=== PATIENT | female | born 1945 | race Caucasian/White ===

== ENCOUNTER → 2019-07-30 | Outpatient (CLI) | payer MEDICARE, SELFPAY | PROVIDERS: PCP Family Medicine; Visit Provider Surgery Plastic and Reconstructive Surgery | DX: Z12.31 Encounter for screening mammogram for malignant neoplasm of breast (principal); C50.412 Malignant neoplasm of upper-outer quadrant of left female breast; Z17.0 Estrogen receptor positive status [ER+] | CPT/HCPCS: 77065; 77067; 77063 ==

== ENCOUNTER 2019-11-10 16:15 | Outpatient (RCR) | payer MEDICARE, SELFPAY ==
--- NOTE | 2019-08-27 09:07 | PTOPEVAL ---
PHYSICAL THERAPY EVALUATION AND PLAN OF TREATMENT 09-06-19 The PT evaluation for Mrs. Rashid Hoskins was completed today, for the diagnosis' of lymphedema of L breast and trunk and weakness/debility due to Gullian [place]. The plan of treatment is for 2x/week for 5 weeks. The orders for lymphedema are from Dr Funez, who is not practicing in the area any longer. Lynne requested her PT information be sent to Dr. Alvarado to continue her care. The orders for the diagnosis of Gullian [place] are from Valarie Porter NP. Thank you for referring Mrs. Rashid Hoskins to [facility]. Please review, sign, date and return this plan of care JAVI. I agree with and certify that the following plan of care is medically necessary. Referring Physician Date Referring Physicians: Valarie Porter NP and Dr. 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 Cardiovascular History Hx Cardiac Disorders No Significant History Respiratory History Hx Respiratory Disorders No Significant History Gastrointestinal History Hx Gastrointestinal Disorders No Significant History Genitourinary History Hx Other Genitourinary Disorders Yes: difficulty with bowel/ bladder during gullian barre- now OK Musculoskeletal History Hx Orthopedic Surgery Yes: 5 R lower leg surgeries due to polio,age 5 Hx Osteoporosis Yes Hx Other Musculoskeletal Disorders Yes: joint pain--knees, shoulders,back pain?arthritis Hematological History Hx Hematological Disorders No Significant History Endocrine History Hx Endocrine Disorders No Significant History HEENT History Hx HEENT Disorders No Significant History Integumentary History Hx Skin Disorders No Significant History Pain History Has Past Pain Affected Your Daily Life Yes: joint pain and neurological pain Other History Hx Cancer Yes: L breast- radiation & chemo Hx Chemotherapy Yes Hx Radiation Therapy Yes Hx Other Medical Conditions Yes: lost 30# since recent illness Evaluation Information Problem Diagnosis 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
--- NOTE | 2019-09-04 11:44 | PCPTNOTE ---
pt signed consent and her info was faxed to [facility] for an intermittent compression pump, auth for insurance & if she is eligible for it.
--- NOTE | 2019-09-28 09:29 | PCPTNOTE ---
Patient called & cancelled scheduled appointment this date due to snowy weather.
--- NOTE | 2019-09-28 11:07 | PCPTNOTE ---
Patient called & cancelled scheduled appointment this date due to [ ]weather
--- NOTE | 2019-10-02 11:39 | PTOPEVAL ---
PHYSICAL THERAPY RE-EVALUATION AND UPDATED PLAN OF CARE 10-02-19 Lynne has received 9 Physical Therapy sessions, from August 27 to today, for the diagnosis' of weakness s/p Gullian [place] and L breast lymphedema. She has improved with her mobility--Thibodeaux balance score, increase home activity, LE strength, sit to stand with 1 UE use, TUG and stair ability; she continues to use the wheeled walker; With her lympedema: circumferential measurement of trunk is 3 cm less; less visual edema over lateral trunk; continues to have tenderness over inner breast and outer breast with tenderness. Recommend to continue PT 2x/week for 4 weeks. Thank you for referring Mrs. Rashid Hoskins to [facility]. Please review, sign, date and return this plan of care JAVI. I agree with and certify that the following plan of care is medically necessary. Referring Physician Date Attending Provider: Dr. Leyla Manzano for Gullian [place] Dr. Alvarado for lymphedema *PT Outpatient Re-Evaluation Document 10/02/19 10:25 EVERETT (Rec: 10/02/19 11:34 EVERETT [email or web address]) Subjective Information Lynne reports: starting to Query Text:As Reported By Patient do more at home--dusting and mopping, walking some with cane or without device in home ; difficulty with reaching up in kitchen; going to basement to do laundry when is home, for safety only; helping get R leg in/out tub--stepping over to take a shower; has not gotten into tub; is going out and shopping, pushing cart for about 1 hour Pain Assessment Timing of Pain Assessment Timing of Pain Assessment Assessment Pain Scale Pain Scale Used Numeric (1 - 10) Self Report Pain Assessment Left Breast(s) Reported Pain Level 5 Other Pain Description lateral breast--feels like someone pressing on skin/ discomfort Additional Pain Comments continue to do self massage over breast Bilateral Leg(s) Reported Pain Level 6 Radicular Pain Location all over joint pain-? due to arimidex,has called her & has new pain med Pain Frequency Acute Pain Score Pain Score 5,6: Self Report Lower Extremity Muscle Strength Testing General Lower Extremity Strength Gross Lower Extremity Strength -SLS- lift leg but unable to hold on R and L; -alternate toe tap- SBA for safety, difficulty with lifti
--- NOTE | 2019-11-10 17:11 | PTOPEVAL ---
PHYSICAL THERAPY DISCHARGE 11-10-2019 Mrs. Rashid Hoskins has received 16 Physical Therapy sessions, from August 27 to today. Lynne has improved with her mobility skills and strength. The lymphedma over her L breast and trunk has decreased. She is independent with her strengthening exercises and self massage and management of her lymphedema. She will be discharged from PT at this time. The goals were partially achieved. Thank you for referring Mrs. Rashid Hoskins to [facility]. Please review, sign, date and return this discharge JAVI. I agree with and certify that the following plan of care is medically necessary. Referring Physician Date Attending Provider: Dr. Leyla Manzano, for Guillian [place] Dr. Alvarado, for Lymphedema *PT Outpatient Discharge Document 11/10/19 16:15 [facility]ERETT (Rec: 11/10/19 17:11 EVERETT [email or web address]) Subjective Information Lynne reports: is much Query Text:As Reported By Patient/ better, back to doing all of Family her usual home things, except carries laundry basket up/down stairs and feels arms are not quite strong enough when she is reaching up to put things away in cabinets; is able to get in/out tub on her own; not any problems going up/down basement stairs; is using the cane when walking out in the community, no device in her home and uses the wheeled walker when there is wetness or snow outside; is doing her home exercises without any problems; is having numbness in her finger tips and toes, and agrees to discharge from therapy. Pain Assessment Timing of Pain Assessment Timing of Pain Assessment Assessment Pain Scale Pain Scale Used Numeric (1 - 10) Self Report Pain Assessment Left Breast(s) Reported Pain Level 0 Bilateral Leg(s) Reported Pain Level 0 Additional Pain Comments has some L hip arthritis like pain- pointed to lateral- posterior hip Pain Score Pain Score 0,0: Self Report Lower Extremity Muscle Strength Testing General Lower Extremity Strength Gross Lower Extremity Strength SLS R and L 2 seconds, unstable; supine: L LE: 2# ankle wt: SLR x 10 reps; R LE no ankle wt, SLR x 10 reps;
== END 2019-11-11 08:56 | disposition home or self-care (01) ==
LOC: ANHPT 16:15
PROVIDERS: PCP Family Medicine; Visit Provider Surgery Plastic and Reconstructive Surgery
DX: I89.0 Lymphedema, not elsewhere classified (principal); G61.0 Guillain-Barre syndrome
CPT/HCPCS: 36415; 80053; 85025; 97110; 97140; 97162

== ENCOUNTER 2019-11-24 10:57 | Outpatient (CLI) | payer MEDICARE, SELFPAY ==
[2019-11-24 11:16] LABS: Basophils Absolute Auto 0.1 K/mm3 (0.0-0.1); Basophils Percent Auto 0.8 % (0.2-1.2); Eosinophils Absolute Auto 0.2 K/mm3 (0-0.3); Eosinophils Percent Auto 2.6 % (0-4.4); Hematocrit 41.1 % (37.0-47.0); Hemoglobin 13.1 g/dL (12.0-15.0); Immature Granulocyte Absolute 0.01 K/mm3 (0.00-0.031); Immature Granulocyte Percent A 0.2 % (0-0.5); Lymphocytes Absolute Auto 1.22 K/mm3 (0.9-3.2); Lymphocytes Percent Auto 20.1 % (18.3-44.2); Mean Corpuscular HGB Conc 31.9 g/dl (32-36); Mean Corpuscular Hemoglobin 29.1 pg (26-34); Mean Corpuscular Volume 91.3 fl (80-100); Mean Platelet Volume 10.6 fl (7.4-10.4); Monocytes Absolute Auto 0.7 K/mm3 (0.1-0.6); Monocytes Percent Auto 10.9 % (2.6-8.5); Neutrophils Percent Auto 65.4 % (45.5-73.1); Platelet Count Result 208 k/mm3 (150-375); Red Cell Distribution Width 14.7 % (11.5-14.5); White Blood Count 6.1 K/mm3 (4.5-10.0)
[2019-11-24 12:22] LABS: Alanine Aminotransferase 19 U/L (4-35); Albumin Level 4.3 g/dL (3.5-5.1); Alkaline Phosphatase 130 U/L (38-126); Aspartate Amino Transferase 27 U/L (14-36); Bilirubin,Total 0.7 mg/dL (0.2-1.3); Blood Urea Nitrogen 13 mg/dL (7-17); Calcium 9.7 mg/dL (8.4-10.2); Carbon Dioxide 26 mmol/L (22-30); Chloride 102 mmol/L (98-107); Estimated Glomerular Filt Rate > 60; Glucose 88 mg/dL (65-105); Potassium 3.8 mmol/L (3.4-5.0); Sodium 142 mmol/L (137-145)
[2019-11-27 12:48] LABS: CA 27.29 9 U/mL (<38)
== END 2019-11-24 10:58 | disposition home or self-care (01) ==
PROVIDERS: PCP Family Medicine; Visit Provider Internal Medicine Hematology & Oncology
DX: C50.412 Malignant neoplasm of upper-outer quadrant of left female breast (principal); Z17.0 Estrogen receptor positive status [ER+]
CPT/HCPCS: 36415; 80053; 85025; 86300

== ENCOUNTER 2020-01-21 12:09 | Outpatient (CLI) | payer MEDICARE, SELFPAY ==
--- NOTE | ~2020-01-21 | MM_ITS ---
EXAMINATION: MM diagnostic nicole LT w kate HISTORY: Status post left partial mastectomy for breast cancer TECHNIQUE: ML, MLO and cc 3-D tomosynthesis images of the left breast were performed and synthetic 2- D images were generated. Exaggerated lateral craniocaudal view of left breast. CAD analysis was submi tted and interpreted. COMPARISON: 07/30/2019 bilateral digital mammogram BREAST PARENCHYMAL COMPOSITION: There are scattered areas of fibroglandular density. FINDINGS: Status post left partial mastectomy; surgical clips and asymmetric density in the posterior aspect of the upper outer quadrant of the left breast are again noted, appearing stable since 2018. Stable skin thickening. No interval suspicious mass, architectural distortion or malignant calcification or new skin thickeni ng or retraction is evident.. IMPRESSION: 1. Status post left partial mastectomy for breast cancer 2. No mammographic evidence of malignancy or significant new or developing density since 07/30/2019 3. Follow-up imaging as clinically appropriate for this patient with history of left breast cancer. BI-RADS Category 2: Benign finding(s). Reviewed, dictated and finalized at location A. IMPRESSION: 1. Status post left partial mastectomy for breast cancer 2. No mammographic evidence of malignancy or significant new or developing dens ity since 07/30/2019 3. Follow-up imaging as clinically appropriate for this patient with history of left breast cancer. BI-RADS Category 2: Benign finding(s).
--- NOTE | ~2020-01-21 | DEXA_ITS ---
Bone Density Report Name: Lynne Skinner Age: 74 Sex: Female Ethnicity: White Date of : 1945 Indication: postmenopausal; height loss; cancer; Referring Provider: Charly Alvarado Study: Bone densitometry was performed. Exam Date: January 21, 2020 Accession number: [id number] Bone Density: Region BMD T-score Z-score Classification AP Spine (L1-L4) 0.900 -1.3 1.0 Osteopenia Femoral Neck (Left) 0.562 -2.6 -0.5 Osteoporosis Total Hip (Left) 0.644 -2.4 -0.7 Osteopenia Total Hip Bilateral Avg 0.626 -2.6 -0.8 Osteoporosis Femoral Neck (Right) 0.573 -2.5 -0.4 Osteoporosis Total Hip (Right) 0.606 -2.8 -1.0 Osteoporosis World Health Organization criteria for BMD impression classify patients as: Normal (T-score at or above -1.0), Osteopenia (T-score between -1.0 and -2.5), or Osteoporosis (T-score at or below -2.5). 10-year Fracture Risk: FRAX not reported because: Some T-score for Spine Total or Hip Total or Femoral Neck at or below -2.5 Clinical Information Provided by Patient: Has the following medical conditions: Cancer Patient maximum height was 60 Menopause Age: 53 Drinks caffeinated beverages Onset of menses at age 12 Number of children 2 Impression: The patient has osteoporosis, based on the Right Total Hip T-score. Discussion: INCREASED RISK OF FRACTURE. BONE DENSITY IS UNDESIRABLY LOW AT ONE OR MORE SKELETAL SITES, CONSISTENT WITH POSTMENOPAUSAL OSTEOPOROSIS. This patient's lowest T-score meets the World Health Organization's (WHO) criteria for osteoporosis at one or more sites (T-score -2.5 or below). In untreated patients, the risk of osteoporotic fracture increases approximately two-fold for each 1.0 SD decrease in T-score. Low bone density is not the only risk factor for fracture; also consider factors such as patient's age, frailty or poor health, risk of falling, risk of injury, previous osteoporotic fracture, family history of osteoporosis, cigarette smoking, low body weight, etc. Not everyone with low bone mineral density has osteoporosis; osteomalacia and other metabolic bone disorders should also be considered. Patients who have osteoporosis should be evaluated for specific diseases and conditions (secondary causes) that may cause or contribute to bone loss. The [place] Association [employer] Clinical Endocrinologists (AACE) and National Osteoporosis Foundation (NOF) recommend pharmacologic intervention for all postmenopausal women whose T-score is in this range. The patient should follow a healthful lifestyle (good nutrition with adequate calcium and vitamin D, and appropriate weight-bearing exercise). Follow-Up: Consider a repeat BMD and Vertebral Fracture Assessment (VFA) exam in 2 years or sooner if medically necessary, to reassess this patient's status. Reported by: EMILY on 01/21/2020 12:52:00 PM.
== END 2020-01-21 12:10 | disposition home or self-care (01) ==
PROVIDERS: PCP Family Medicine; Visit Provider Internal Medicine Hematology & Oncology
DX: C50.412 Malignant neoplasm of upper-outer quadrant of left female breast (principal); Z17.0 Estrogen receptor positive status [ER+]; M81.0 Age-related osteoporosis without current pathological fracture; M85.88 Other specified disorders of bone density and structure, other site; M85.852 Other specified disorders of bone density and structure, left thigh
CPT/HCPCS: 77061; 77065; 77080; G0279

== ENCOUNTER 2020-02-29 13:54 | Outpatient (CLI) | payer MEDICARE, SELFPAY ==
--- NOTE | ~2020-02-29 | XR_ITS ---
XR knee RT min 4V DATE: 02/29/2020 14:33 INDICATION: Bilateral leg pain TECHNIQUE: Weightbearing AP and PA views. [place] and lateral views. COMPARISON: None FINDINGS: There is mild periarticular spurring at all 3 compartments. There is prominent loss of join t space at the lateral compartment. Osteopenia. There is mild suprapatellar knee joint effusion. No fracture, dislocation, periosteal reaction or bone destruction, radiopaque intra-articular loose b valeria or chondrocalcinosis is evident. 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 Reviewed, dictated and finalized at location A. IMPRESSION: Tricompartment osteoarthritis, with greatest involvement at the lat eral compartment Osteopenia.
--- NOTE | ~2020-02-29 | XR_ITS ---
XR knee LT min 4V DATE: 02/29/2020 14:33 INDICATION: Bilateral leg pain. TECHNIQUE: 4 views including weightbearing AP and PA views COMPARISON: None FINDINGS: No fracture or dislocation or joint effusion. No periosteal reaction or bone destruction. Osteopenia. Joint spaces are relatively well preserved. No radiopaque intra-articular loose body or c hondrocalcinosis. IMPRESSION: Osteopenia Reviewed, dictated and finalized at location A. IMPRESSION: Osteopenia
--- NOTE | ~2020-02-29 | XR_ITS ---
EXAMINATION: XR hip BI 2V w AP pelvis DATE: 02/29/2020 14:33 INDICATION: Guillain-[place] syndrome. TECHNIQUE: An anteroposterior view of the pelvis and 2 views of each hip were obtained. COMPARISON: None. FINDINGS: Bone alignment is normal. No fracture. There is mild bilateral hip osteoarthritis. There is at least moderate lumbar spondylosis. IMPRESSION: 1. Mild osteoarthritis of the hips. Reviewed, dictated and finalized at location E.
== END 2020-02-29 13:55 | disposition home or self-care (01) ==
PROVIDERS: PCP Family Medicine; Visit Provider Family Medicine
DX: G61.0 Guillain-Barre syndrome (principal); Z86.12 Personal history of poliomyelitis; M81.0 Age-related osteoporosis without current pathological fracture; M16.0 Bilateral primary osteoarthritis of hip; M17.11 Unilateral primary osteoarthritis, right knee; M85.861 Other specified disorders of bone density and structure, right lower leg; M85.862 Other specified disorders of bone density and structure, left lower leg
CPT/HCPCS: 73521; 73564

== ENCOUNTER 2020-06-14 13:15 | Outpatient (RCR) | payer MEDICARE, SELFPAY ==
--- NOTE | 2020-03-17 10:06 | PTOPEVAL ---
PHYSICAL THERAPY EVALUATION AND PLAN OF CARE UPDATE Thank you for referring Lynne Fields to [facility]. I recommend Lynne participate in physical therapy 2x/week for 4-8weeks. Please review, sign, date and return this plan of care JAVI. I agree with and certify that the following plan of care is medically necessary. 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 Musculoskeletal History Hx Arthritis Yes: GENERALIZED Hx Orthopedic Surgery Yes: 5 R lower leg surgeries due to polio,age 5 Hx Osteoporosis Yes Hx Other Musculoskeletal Disorders Yes: PHYSICAL THERAPY FOR VI DEE - USES WALKER & CANE HEENT History Hx Dental Problems Yes: LOWER DENTURES Hx Other HEENT Disorders Yes: READING GLASSES Reproductive History Hx Mastectomy Yes: APRIL 2018 LT PARTIAL - NO BP/STICKS LT ARM Psychosocial History Hx Recent Lifestyle Changes Yes: DX ARNAV DEE MARCH 14 2019 Pain History Has Past Pain Affected Your Daily Life Yes: joint pain and neurological pain Other History Hx Cancer Yes: L breast- radiation & chemo Hx Chemotherapy Yes Hx Radiation Therapy Yes Hx Other Surgeries Yes: polio age 5 Evaluation Diagnosis left hip pain, right knee pain Cause indious Subjective Lynne is here today with c/o left hip pain and right knee. She was particpiating in physical therapy and discharged in October 2019 and reports she was doing well, but she is now having pain in left hip and right knee. She continues to use a cane in the community, but no AD in the house. She continues to do her HEP from October until the right knee started hurting. 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 Lacie feels not quite as steady on her feet as she would like to be. Diagnostic Tests X-Rays For This Problem Yes: OA Right Knee Reported Pain Level 2 Pain Description Aching Pain Frequency Chronic,Intermittent Lowest Pain Intensity 0 Greatest Pain Intensity 7 Pain Aggravating Factors Walking,Weight Bearing/ Standing Left Hip Reported Pain Level 3 Pain Description Aching Pain Frequency Chronic,Intermittent Lowest Pain Intensity 0 Greatest Pain Intensity 7 Pain Aggravating Factors Stair Climbing,Walking,Weight Be
--- NOTE | 2020-04-18 11:31 | PCPTNOTE ---
Patient did not show up for scheduled appointment this date.
--- NOTE | 2020-04-25 16:29 | PTOPEVAL ---
PHYSICAL THERAPY PROGRESS REPORT AND PLAN OF CARE Thank you for referring Lynne MikeAriaanAidee to [facility]. I recommend Lynne continue physical therapy 2x/week for 4 weeks. Please review, sign, date and return this plan of care JAVI. I agree with and certify that the following plan of care is medically necessary. Referring Physician Date Attending Provider: Leyla Nogueira MD Progress Diagnosis left hip pain, right knee pain Onset chronic Cause indious Subjective Information Lynne reports that she does Query Text:As Reported By Patient/ have days where she has quite Family a bit of pain in right knee and left hip. She does note that with physical therapy she feels as thought she is starting to get stronger. She started to do her exercises in the pool and she feels really good doing them in that water. Pain Assessment Timing of Pain Assessment Timing of Pain Assessment Pre-Treatment Pain Scale Pain Scale Used Numeric (1 - 10) Self Report Pain Assessment Right Knee(s) Reported Pain Level 2 Pain Description Aching,Pressure,Throbbing Pain Frequency Chronic,Intermittent Left Hip(s) Reported Pain Level 6 Pain Description Aching,Pressure,Throbbing Pain Frequency Chronic,Intermittent Pain Score Pain Score 2,6: Self Report Lower Extremity Range of Motion General Lower Extremity Range of Motion Reason Not Measured WNL/Left,WNL/Right Hip Strength Left Hip Flexion Strength 4+ Good + Hip Extension Strength 3- Fair - Hip Abduction Strength 3- Fair - Right Hip Flexion Strength 4 Good Hip Extension Strength 3- Fair - Hip Abduction Strength 3- Fair - Knee Strength Left Knee Flexion Strength 4 Good Knee Extension Strength 4- Good - Right Knee Flexion Strength 4- Good - Knee Extension Strength 3 Fair Balance Assessment Time Up Go (TUG) Timed Up and Go Test (TUG) (Seconds) 12 Assistive Devices None 5 Time Sit to Stand Time in Seconds 15.25 5 Time Sit to Stand Comments with use of hands on legs Query Text:Normative Data: If Greater 1month ago = 16.78seconds Than 15 Seconds, 74% Increase Risk for Recurrent Falls Gait Assessment Total Distance (feet) 755 6 Minute Walk Gait Speed Score (feet/ 2.09 second) PT Clinical Summary Lynne has participated in 1
--- NOTE | 2020-05-25 13:26 | PTOPEVAL ---
PHYSICAL THERAPY PLAN OF CARE UPDATE Thank you for referring Lynne Hoskins to [facility].? The patient is scheduled to be seen for therapy? 1C/week for 4 weeks. Please review, sign, date and return this plan of care JAVI. I agree with and certify that the following plan of care is medically necessary. Referring Physician Date Attending Provider: Leyla Nogueira, MD Progress Diagnosis left hip pain, right knee pain Onset chronic Cause indious Subjective Information Lynne continues to feel as Query Text:As Reported By Patient/ though she is getting stronger Family . She appreciates the accountability of therapy. She requested updated HEP. Self Report Pain Assessment Spine, Lumbar Reported Pain Level 4 Pain Description Aching Hip Strength Left Hip Flexion Strength 4+ Good + Hip Extension Strength 3- Fair - Hip Abduction Strength 3- Fair - Right Hip Flexion Strength 4 Good Hip Extension Strength 3- Fair - Hip Abduction Strength 3- Fair - Knee Strength Left Knee Flexion Strength 4 Good Knee Extension Strength 4- Good - Right Knee Flexion Strength 4- Good - Knee Extension Strength 3+ Fair + ESTES Balance Evaluation Total Score 44/56 Time Up Go (TUG) Timed Up and Go Test (TUG) (Seconds) 11 Assistive Devices None Comments 1month ago = 12seconds 5 Time Sit to Stand 14.32seoncds 5 Time Sit to Stand Comments with use of hands on legs 1month ago =15.25seconds 2month ago = 16.78seconds Gait Assessment 6 Minute Walk Total Distance (feet) 730 6 Minute Walk Gait Speed Score (feet/ 2.02 second) 6 Minute Gait Comments 1month ago = 755ft PT Clinical Summary Lynne has participated in 2 months of physical therapy 1 year after diagnosis of Guillian-[place]. Lynne continues to demonstrate mild progress in balance and functional strength. We will continues PT 1x/week for 4 weeks with plan for discharge. PT Services Indicated Yes Rehabilitation Potential Good Patient/Caregiver's Personal Goals for feel stronger and steadier Rehabilitation Potential Barriers to Goal Achievements None Support Requirements For Optimal None [place] Patient/Caregiver Informed of Benefits/ Yes Risks of Rehabi
--- NOTE | 2020-06-16 09:20 | PCPTNOTE ---
This treatment is being continued on visit number [id number]. Please see documentation on both accounts to view progress. Completed interventions, outcomes, and problems have been marked as Inactive to facilitate the copying of the Care plan routine for recurring accounts.
== END 2020-06-15 23:59 | disposition home or self-care (01) ==
LOC: ANHPT 13:15
PROVIDERS: PCP Family Medicine; Visit Provider Family Medicine
DX: G61.0 Guillain-Barre syndrome (principal); M25.561 Pain in right knee; M25.562 Pain in left knee; M25.551 Pain in right hip; M25.552 Pain in left hip; R26.81 Unsteadiness on feet; Z86.12 Personal history of poliomyelitis
CPT/HCPCS: 97110; 97112; 97140; 97162

== ENCOUNTER 2020-06-21 11:13 | Outpatient (RCR) | payer MEDICARE, SELFPAY ==
--- NOTE | 2020-06-16 09:20 | PCPTNOTE ---
The treatment documented on this account is a continuation of the treatment documented on visit number [id number]. Please see documentation on both accounts to view progress. The Plan of Care has been transitioned and updated within the new V#. I have addressed and agree with the discipline specific Problems, Interventions, and Goals for the current certification period. Completed interventions, outcomes, and problems have been marked as Inactive to facilitate the copying of the Care plan routine for recurring accounts.
--- NOTE | 2020-06-21 15:13 | PTOPEVAL ---
PHYSICAL THERAPY DISCHARGE NOTE Thank you for referring Lynne Hoskins to [facility].? Please review, sign, date and return this plan of care JAVI. I agree with and certify that the following plan of care is medically necessary. Referring Physician Date Attending Provider: Leyla Nogueira, MD Discharge agnosis left hip pain, right knee pain Onset chronic Cause indious Subjective Information Lynne is working hard at Query Text:As Reported By Patient/ home and feels as though her Family HEP is helping her to feel stronger. Her arthritis pain is much more under control. Pain Assessment Timing of Pain Assessment Timing of Pain Assessment Pre-Treatment Self Report Self Report Pain Level 0 Pain Score Pain Score 0: Self Report Additional Pain Score Comments pain has reduced since last treatment able to sleep better Balance Assessment Estes Balance Assessment Sitting to Standing Independent w/out Hands Unsupported Stance Ability Safely- 2 minutes Sitting Unsupported, Feet on Floor Safely- 2 minutes Standing to Sitting Safely, Minimal Hand Use Transfer Ability Safely, Minimal Hand Use Unsupported Stance- Eyes Closed Safely, 10 seconds Unsupported Stance- Feet Together Independent, 1 minute Reaching Forward while Standing Safely, 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 Object From Floor Independent/Safe Look Behind Shoulder - Standing Shifts Weight Well Turning 360 Degrees Turns slowly, but safely Unsupported Stance, Alternating Feet on (I)- 8 Steps in > 20 secs Stair Unsupported Tandem Stance Small Step- 30 seconds Unilateral Leg Stance Lifts Leg/Holds > 3 secs ESTES Balance Evaluation Total Score (/56 48 points) Time Up Go (TUG) Timed Up and Go Test (TUG) (Seconds) 11 Assistive Devices None Comments 1month ago = 11seconds 2month ago = 12seconds 5 Time Sit to Stand Time in Seconds 13.68 5 Time Sit to Stand Comments with use of hands on legs Query Text:Normative Data: If Greater 1month ago = 14.32seconds Than 15 Seconds, 74% Increase Risk for 2month ago =15.25seconds Recurrent Falls 3month ago = 16.78seconds Gait Assessment 6 Minute Walk Total Distance (feet) 785 6 Minute Walk Gait Speed Score (feet/ 2.18 second) 6 Minute Gait Comments with cane 1month ago = 730ft 2 months ago = 755ft PT Clinical Summary Lynne has participated in 3 months of physical therapy 1
== END 2020-06-22 12:47 | disposition home or self-care (01) ==
LOC: ANHPT 11:13
PROVIDERS: Visit Provider Family Medicine
DX: G61.0 Guillain-Barre syndrome (principal); M25.561 Pain in right knee; M25.562 Pain in left knee; M25.551 Pain in right hip; M25.552 Pain in left hip; R26.81 Unsteadiness on feet; Z86.12 Personal history of poliomyelitis
CPT/HCPCS: 97110

== ENCOUNTER 2020-07-27 10:00 | Outpatient (RCR) | payer MEDICARE, SELFPAY ==
--- NOTE | 2020-06-22 11:46 | PTOPEVAL ---
PHYSICAL THERAPY EVALUATION AND PLAN OF CARE 06-22-2020 The PT evaluation was completed for the diagnosis of L breast and UE lymphedema. Her treatment is scheduled for 2-3x/week for 5 weeks. Thank you for referring Lynne Hoskins to [facility].? Please review, sign, date and return this plan of care JAVI. I agree with and certify that the following plan of care is medically necessary. Referring Physician Date Attending Provider: KATARZYNA Johnson *PT Outpatient Evaluation Start: 06/22/20 09:55 Document 06/22/20 10:00 EVERETT (Rec: 06/22/20 11:34 EVERETT [id number]) Assessment Status Assessment Status Evaluation Outpatient Past Medical History Past Medical History Source of Past Medical History Patient Neurological History Hx Other Neurological Disorders Yes: Gullian [place] MARCH 14, 2019 - syndrome;polio as child Cardiovascular History Hx Cardiac Disorders No Significant History Respiratory History Hx Respiratory Disorders No Significant History Gastrointestinal History Hx Gastrointestinal Disorders No Significant History Genitourinary History Hx Other Genitourinary Disorders Yes: difficulty with bowel/ bladder during gullian barre- now OK Musculoskeletal History Hx Arthritis Yes: GENERALIZED- new script of meloxicam helping Hx Back Pain Yes Hx Orthopedic Surgery Yes: 5 R lower leg surgeries due to polio,age 5 Hx Osteoporosis Yes Hx Other Musculoskeletal Disorders Yes Hematological History Hx Hematological Disorders No Significant History Endocrine History Hx Endocrine Disorders No Significant History HEENT History Hx Dental Problems Yes: LOWER DENTURES Hx Other HEENT Disorders Yes: READING GLASSES Integumentary History Hx Skin Disorders No Significant History Reproductive History Hx Mastectomy Yes: APRIL 2018 LT PARTIAL - NO BP/STICKS LT ARM Pain History Has Past Pain Affected Your Daily Life Yes: joint pain and neurological pain Anesthesia History Hx Anesthesia Reactions No Significant History Other History Hx Cancer Yes: L breast- radiation & chemo Hx Chemotherapy Yes Hx Radiation Therapy Yes Hx Other Surgeries Yes: polio age 5 Evaluation Information Problem Diagnosis L breast lymphedema Onset March 2020 Prior Level of Function Activity Level (Last 3 Months) Occupation retired Hand Dominance Right Activity of Daily Living Ability Independent Indoor/Home Mobility
--- NOTE | 2020-07-27 10:55 | PTOPEVAL ---
PHYSICAL THERAPY DISCHARGE 07-27-2020 Thank you for referring Lynne Hoskins to [facility] Refer to the clinical summary below for her status at discharge. Please review, sign, date and return this plan of care JAVI. I agree with and certify that the following plan of care is medically necessary. Referring Physician Date Attending Provider: VARSHA Johnson *PT Outpatient Discharge Freq: Status: Active Protocol: Document 07/27/20 10:00 EVERETT (Rec: 07/27/20 10:55 EVERETT [id number]) Subjective Information Lynne reports: feeling Query Text:As Reported By Patient/ better, compression sleeve is Family comfortable and wearing without any problems; doing self massage at home; feels like ready for discharge from PT and to continue taking care of her lymphedema with massage and compression garment--she understands what to do Pain Assessment Timing of Pain Assessment Timing of Pain Assessment Assessment Self Report Self Report Pain Level 0 Pain Score Pain Score 0: Self Report Additional Pain Score Comments no pain in arm or trunk/chest; does have low back pain, due to twisting in bed last night - using heat and stretching; Lymphedema Evaluation Skin Inspection Skin Inspection Comment in supine: L upper trunk: no tenderness or fibrotic tissue with palpation over: port site, lower breast, axilla or medial-upper humerus; in supine: L shoulder active ROM is WNL and no pain reported UE Circumferential Measurement Left UE Lymphedema Side Left Mid-Proximal Third Finger (cm) 5.5 Palm (cm) 16.8 Wrist Crease (cm) 14.6 4 cm From Wrist (cm) 15 8 cm From Wrist (cm) 17 12 cm From Wrist (cm) 20 16 cm From Wrist (cm) 22.4 20 cm From Wrist (cm) 23.4 24 cm From Wrist (cm) 23.2 28 cm From Wrist (cm) 25.8 32 cm From Wrist (cm) 28 36 cm From Wrist (cm) 29 40 cm From Wrist (cm) 28 44 cm From Wrist (cm) 27 Total Upper Extremity Circumferential Left UE: 295.7 cm Measurement (cm) Additional Upper Extremity Measurements compared to initial evaluati
== END 2020-09-05 10:52 | disposition home or self-care (01) ==
LOC: ANHPT 10:00
PROVIDERS: Visit Provider Nurse Practitioner Adult Health
DX: I89.0 Lymphedema, not elsewhere classified (principal); C50.412 Malignant neoplasm of upper-outer quadrant of left female breast; Z17.0 Estrogen receptor positive status [ER+]
CPT/HCPCS: 29581; 97140; 97161

== ENCOUNTER 2020-08-05 12:59 | Outpatient (CLI) | payer MEDICARE, SELFPAY ==
--- NOTE | ~2020-08-05 | MMUS_ITS ---
EXAMINATION: MM diagnostic incole BI w kate, US breast LT complete HISTORY: Status post left mastectomy for breast cancer. Six-month follow-up of left breast TECHNIQUE: ML, MLO and cc 3-D tomosynthesis images of the breasts were performed and synthetic 2-D im ages were generated. Rotated lateral left cc view of left breast and additional spot images of left b reast CAD analysis was submitted and interpreted. High resolution left complete breast ultrasound exa mination was performed. COMPARISON: 01/31/2020 diagnostic left digital mammogram 07/30/2019 right screening and left diagnostic digital mammogram BREAST PARENCHYMAL COMPOSITION: There are scattered areas of fibroglandular density. FINDINGS: MAMMOGRAPHIC FINDINGS: Surgical clips and scarring are again identified in the posterior upper left breast posteriorly, as w ell as some asymmetric skin thickening of the left breast. Occasional benign calcifications are noted bilaterally. There is asymmetry in the posterior central left breast best demonstrated on screening CC view; left breast ultrasound was performed ULTRASOUND: No solid mass or suspicious shadowing is evident in the left breast. IMPRESSION: 1. Probable benign left breast fibroglandular asymmetry 2. 6 month diagnostic left mammogram is recommended, with ultrasound if required BI-RADS category 3, probably benign findings. Reviewed, dictated and finalized at location A. IMPRESSION: 1. Probable benign left breast fibroglandular asymmetry 2. 6 month diagnostic left mammogram is recommended, with ultrasound if require d BI-RADS category 3, probably benign findings.
== END 2020-08-05 13:00 | disposition home or self-care (01) ==
PROVIDERS: PCP Family Medicine; Visit Provider Nurse Practitioner Adult Health
DX: C50.412 Malignant neoplasm of upper-outer quadrant of left female breast (principal); Z17.0 Estrogen receptor positive status [ER+]
CPT/HCPCS: 76641; 77062; 77066; G0279

== ENCOUNTER 2020-08-08 09:59 | Outpatient (CLI) | payer MEDICARE, SELFPAY | END 2020-08-08 10:00 | disposition home or self-care (01) | LOC: ANHAUDIO 10:01 | PROVIDERS: PCP Family Medicine; Visit Provider Otolaryngology | DX: H90.3 Sensorineural hearing loss, bilateral (principal) | CPT/HCPCS: 92557; 92567 ==

== ENCOUNTER 2021-01-09 13:30 | Outpatient (RCR) | payer MEDICARE, SELFPAY ==
--- NOTE | 2020-11-14 15:02 | PTOPEVAL ---
Thank you for referring Lynne Hoskins to [facility].? The patient is scheduled to be seen for therapy? 2 x/week for 8 weeks. Please review, sign, date and return this plan of care JAVI. I agree with and certify that the following plan of care is medically necessary. Referring Physician Date Attending Provider: Mendoza Edwards MD *PT Outpatient Evaluation Start: 11/14/20 13:35 Therapy Assessment Status Assessment Status Assessment Status Evaluation Evaluation Information Problem Diagnosis right knee pain and back pain Additional Evaluation Detail GBS 2019- SNF for 70 days, DC home 06/01, then home health therapy. She then attended OP therapy early 2019. she has custom shoe orthotics with 1 cm left added to right insert. She started celebrex 1 wk ago for her OA. Subjective Information She uses a cane for community Query Text:As Reported By Patient/ mobility and amb at home Family without AD. c/o right knee pain and wearing an OTS compression knee brace. She also wearing ankle brace with lateral metal stays. She is performing a strengthening HEP 3-4x/wk. She is unable to milton exercises daily due to right leg and left hip pain. She has increased knee pain with walking. She wants to go the gym for walking, but has increased pain. She will have increased hip and knee pain with prolonged sitting. Pain Assessment Timing of Pain Assessment Timing of Pain Assessment Assessment Pain Scale Pain Scale Used Numeric (1 - 10) Self Report Pain Assessment Left Buttock(s) Reported Pain Level 0 Pain Frequency Intermittent Greatest Pain Intensity 8 Pain Aggravating Factors Prolonged Position,Walking, Weight Bearing/Standing Right Knee(s) Reported Pain Level 0 Pain Description Aching Pain Frequency Intermittent Greatest Pain Intensity 9 Pain Aggravating Factors Prolonged Position,Walking, Weight Bearing/Standing Pain Behaviors Anxious Pain Score Pain Score
--- NOTE | 2020-11-28 09:06 | PCPTNOTE ---
Patient called & cancelled scheduled appointment this date due to weather.
--- NOTE | 2020-12-01 11:09 | PCPTNOTE ---
Patient called & cancelled scheduled appointment this date due to weather.
--- NOTE | 2021-01-10 07:37 | PTOPEVAL ---
Thank you for referring Lynne Hoskins to [facility].? Lynne has attended 12 therapy visits related to her back pain and leg weakness. She has reached maximal potential with skilled therapy services at this time. D/C skilled therapy services at this time. Please review, sign, date and return this discharge summary JAVI. I agree with and certify that the following plan of care is medically necessary. Referring Physician Date Attending Provider: Mendoza Edwards MD Physical Therapy Discharge Note Evaluation Information Problem Diagnosis right knee pain and back pain Additional Evaluation Detail GBS 2019- SNF for 70 days, DC home 06/01, then home health therapy. She then attended OP therapy early 2019. she has custom shoe orthotics with 1 cm left added to right insert. Subjective Information She wants to be able to do Query Text:As Reported By Patient/ more. States is has been Family almost 2 yrs since she felt like she could complete everything she wanted. She has increased pain if she sits more than an hour. She reports she is feeling better. She feels like her legs are stronger. Pain Assessment Self Report Pain Assessment Left Buttock(s) Reported Pain Level 3 Pain Description Aching Pain Frequency Chronic,Continuous Lowest Pain Intensity 1 Greatest Pain Intensity 7 Pain Aggravating Factors Exercise/Activity,Weight Bearing/Standing Right Knee(s) Reported Pain Level 2 Pain Description Aching Pain Frequency Chronic Lowest Pain Intensity 2 Greatest Pain Intensity 8 Pain Aggravating Factors Prolonged Position,Walking, Weight Bearing/Standing Cervical and Lumbar Muscle Testing Lumbar Strength Upper Abdominal Strength 3+Fair+ Abdominal Obliques 3+Fair+ Upper Back Extension 3+Fair+ Lower Back Extension 3+Fair+ Lower Extremity Muscle Strength Testing Hip Strength Right Hip Flexion Strength 3+ Fair + Hip Extension Strength 3 Fair Hip Abduction Strength 2 Poor Hip Adduction Strength 2+ Poor + Left Hip Flexion Strength 4 Good Hip Extension Strength 3- Fair - Hip Abduction Strength 2 Poor Hip Adduction Strength 2+ Poor + Knee Strength Left Knee Flexion Strength 4 Good Knee Extension Strength
== END 2021-01-10 10:33 | disposition home or self-care (01) ==
LOC: ANHPT 13:30
PROVIDERS: PCP Family Medicine; Visit Provider Orthopaedic Surgery
DX: M54.5 Low back pain (principal); M25.561 Pain in right knee
CPT/HCPCS: 97110; 97112; 97163; 97530

== ENCOUNTER 2021-01-23 11:36 | Outpatient (CLI) | payer MEDICARE, SELFPAY ==
--- NOTE | ~2021-01-23 | MM_ITS ---
EXAMINATION: MM diagnostic nicole LT w kate HISTORY: Status post recent lumpectomy. Follow-up left breast asymmetry. TECHNIQUE: Additional 3-D tomosynthesis images of the left breast were performed and synthetic 2-D im ages were generated. CAD analysis was submitted and interpreted. COMPARISON: Comparison to multiple prior studies sequentially, with oldest reviewed study dated 12/2017. BREAST PARENCHYMAL COMPOSITION: Breast composed of scattered areas of fibroglandular density. FINDINGS: Stable architectural distortion in the upper outer quadrant of the left breast, consistent with previous lumpectomy. No new masses, calcifications or architectural distortion to suggest malign christopher. IMPRESSION: 1. Stable left mammogram without evidence for malignancy. 2. Routine yearly screening mammogram and regular clinical breast examination are recommended. BI-RADS Category 2: Benign finding(s). Reviewed, dictated and finalized at location A. IMPRESSION: 1. Stable left mammogram without evidence for malignancy. 2. Routine yearly screening mammogram and regular clinical breast examination a re recommended. BI-RADS Category 2: Benign finding(s).
== END 2021-01-23 11:37 | disposition home or self-care (01) ==
LOC: ANHIMG 11:37
PROVIDERS: PCP Family Medicine; Visit Provider Internal Medicine Hematology & Oncology
DX: R92.8 Other abnormal and inconclusive findings on diagnostic imaging of breast (principal)
CPT/HCPCS: 77061; 77065; G0279

== ENCOUNTER 2021-05-31 14:23 | Outpatient (CLI) | payer MEDICARE, SELFPAY ==
--- NOTE | ~2021-05-31 | XR_ITS ---
XR lumbar spine min 4V DATE: 05/31/2021 14:55 INDICATION: Back pain. History of polio. Breast cancer. TECHNIQUE: AP, lateral, bilateral oblique and coned lateral lumbosacral views COMPARISON: None FINDINGS: There is diffuse osteopenia. Mild dextroscoliosis of the thoracolumbar spine. There is severe degenerative disease and associated retrolisthesis at L1-2. There is degenerative change at the apophyseal joints of the lumbar and lumbosacral area with associa glenn grade 1 anterolisthesis at L4-5. No fracture or bone destruction is evident. The lumbar pedicles are intact. The sacroiliac joints are intact. IMPRESSION: Diffuse osteopenia Mild dextroscoliosis of the thoracolumbar spine Severe degenerative disc disease at L1-2 with associated retrolisthesis Prominent degenerative change at the apophyseal joints with associated grade 1 anterolisthesis at L4- 5 Reviewed, dictated and finalized at location A. IMPRESSION: Diffuse osteopenia Mild dextroscoliosis of the thoracolumbar spine Severe degenerative disc disease at L1-2 with associated retrolisthesis Prominent degenerative change at the apophyseal joints with associated grade 1 anterolisthesis at L4-5
== END 2021-05-31 14:24 | disposition home or self-care (01) ==
PROVIDERS: PCP Family Medicine; Visit Provider Family Medicine
DX: M54.9 Dorsalgia, unspecified (principal); G89.29 Other chronic pain; M51.36 Other intervertebral disc degeneration, lumbar region
CPT/HCPCS: 72110

== ENCOUNTER 2021-07-24 11:29 | Outpatient (CLI) | payer MEDICARE, SELFPAY ==
--- NOTE | ~2021-07-24 | MMUS_ITS ---
EXAMINATION: MM diagnostic nicole BI w kaet, US breast RT limited HISTORY: History of left breast cancer status post chemotherapy and radiation therapy. TECHNIQUE: Additional 3-D tomosynthesis images of the breasts were performed and synthetic 2-D images were generated. CAD analysis was submitted and interpreted. High resolution Limited right breast ult rasound was performed. COMPARISON: Comparison to multiple prior studies sequentially, with oldest reviewed study dated 07/14. BREAST PARENCHYMAL COMPOSITION: Breast composed of scattered areas of fibroglandular density. FINDINGS: MAMMOGRAPHIC FINDINGS: There is focal asymmetry in the lower central aspect of the right breast, middle which is less dense with spot compression and mediolateral views, likely superimposed fibroglandular tissue. There is no mammographic evidence for malignancy in the left breast. Stable architectural distortion in the upper aspect of the left breast, consistent with previous lumpectomy site. ULTRASOUND: Limited left breast ultrasound: Normal heterogeneous echotexture is present. There is heterogeneous e chotexture at 7:00, although no discrete mass is identified. IMPRESSION: 1. Probable benign asymmetric fibroglandular tissue in the lower central aspect of the right breast. No sonographic correlate. 2. Recommend 6 month follow-up diagnostic right mammogram. BI-RADS category 3, probably benign findings. Reviewed, dictated and finalized at location A. IMPRESSION: 1. Probable benign asymmetric fibroglandular tissue in the lower central aspect of the right breast. No sonographic correlate. 2. Recommend 6 month follow-up diagnostic right mammogram. BI-RADS category 3, probably benign findings.
== END 2021-07-24 11:30 | disposition home or self-care (01) ==
PROVIDERS: PCP Family Medicine; Visit Provider Internal Medicine Hematology & Oncology
DX: C50.412 Malignant neoplasm of upper-outer quadrant of left female breast (principal); Z17.0 Estrogen receptor positive status [ER+]; R92.8 Other abnormal and inconclusive findings on diagnostic imaging of breast
CPT/HCPCS: 76642; 77062; 77066; G0279

== ENCOUNTER 2022-01-30 13:43 | Outpatient (CLI) | payer MEDICARE, SELFPAY ==
--- NOTE | ~2022-01-30 | MMUS_ITS ---
EXAMINATION: US breast RT complete, MM diagnostic nicole RT w kate HISTORY: Six-month follow-up of probable benign asymmetric fibroglandular tissue in lower central asp ect of right breast on 07/24/2021 diagnostic mammogram TECHNIQUE: Full field and spot right breast 3-D tomosynthesis images were performed and synthetic 2-D images were generated. CAD analysis was submitted and interpreted. High resolution complete right br east ultrasound including all 4 quadrants and subareolar area was performed. COMPARISON: 07/24/2021 bilateral diagnostic mammogram and limited right breast ultrasound BREAST PARENCHYMAL COMPOSITION: There are scattered areas of fibroglandular density. FINDINGS: MAMMOGRAPHIC FINDINGS: Stable fiber granular asymmetry. No interval suspicious mass, architectural distortion or significant new or developing density. Occasional benign calcifications. ULTRASOUND: No suspicious mass or shadowing is detected. A small benign-appearing lymph node with thin cortex murali suring approximately 3.5 x 6.7 mm is noted at 9:00 8 cm from the nipple. IMPRESSION: 1. No mammographic evidence of malignancy 2. Routine mammographic screening is recommended BI-RADS Category 2: Benign finding(s). Reviewed, dictated and finalized at location A. IMPRESSION: 1. No mammographic evidence of malignancy 2. Routine mammographic screening is recommended BI-RADS Category 2: Benign finding(s).
== END 2022-01-30 13:44 | disposition home or self-care (01) ==
PROVIDERS: PCP Family Medicine; Visit Provider Internal Medicine Hematology & Oncology
DX: C50.412 Malignant neoplasm of upper-outer quadrant of left female breast (principal); Z17.0 Estrogen receptor positive status [ER+]
CPT/HCPCS: 76641; 77061; 77065; G0279

== ENCOUNTER 2022-03-14 12:30 | Outpatient (RCR) | payer MEDICARE, SELFPAY ==
--- NOTE | 2022-02-13 10:59 | PTOPEVAL ---
PHYSICAL THERAPY EVALUATION AND PLAN OF CARE 02-13-22 Thank you for referring Lynne Hoskins to [facility] for the diagnosis of lymphedema. She is scheduled to be seen for therapy? 2 x/week for 4 weeks. Please review, sign, date and return this plan of care JAVI. I agree with and certify that the following plan of care is medically necessary. Referring Physician Date Attending Provider: Charly Alvarado MD Past Medical History Source of Past Medical History Recalled from Previous Visit, Confirmed with Patient/Family Neurological History Hx Other Neurological Disorders Yes: Andrei Castrejon MARCH 14, 2019 - syndrome;polio as child Cardiovascular History Hx Cardiac Disorders No Significant History Respiratory History Hx Respiratory Disorders No Significant History Gastrointestinal History Hx Gastrointestinal Disorders No Significant History Genitourinary History Hx Genitourinary Disorders No Significant History Musculoskeletal History Hx Arthritis Yes: GENERALIZED arthritis Hx Back Pain Yes: chronic due to arthritis and knee issues Hx Orthopedic Surgery Yes: 5 R lower leg surgeries due to polio,age 5 Hx Osteoporosis Yes Hx Other Musculoskeletal Disorders Yes: R knee pain--is considering TKR soon Hematological History Hx Hematological Disorders No Significant History Endocrine History Hx Endocrine Disorders No Significant History HEENT History Hx Dental Problems Yes: LOWER DENTURES Hx Other HEENT Disorders Yes: READING GLASSES Integumentary History Hx Skin Disorders No Significant History Pain History Has Past Pain Affected Your Daily Life Yes: joint pain and neurological pain Anesthesia History Hx Anesthesia Reactions No Significant History Other History Hx Cancer Yes: L breast- radiation & chemo Hx Chemotherapy Yes Hx Radiation Therapy Yes Hx Other Surgeries Yes: polio age 5 Evaluation Information Problem Diagnosis lymphedema of L UE, trunk and breast Onset past year Prior Level of Function Activity Level (Last 3 Months) Hand Dominance Right Home Setting Environmental Barriers Stairs, Greater than 4 Living Situation With Spouse Mobility Assistive Devices (Used Last 3 Cane,Wheelchair, Scooter Months) Comments Additional Prior Level of Function assist with vacuuming Comments and does mowing; use cane for walking and distances use motorized
--- NOTE | 2022-03-14 13:10 | PTOPEVAL ---
PHYSICAL THERAPY DISCHARGE 03-14-22 Refer to the clinical summary below, for her status today, compared to the initial evaluation. The goals were partially met. Discharge PT services. Thank you for referring Lynne Hoskins to [facility].? Please review, sign, date and return this Discharge JAVI. I agree with and certify that the following plan of care is medically necessary. Referring Physician Date Attending Provider: Charly Alvarado MD Pain Assessment Pain Scale Pain Scale Used Numeric (1 - 10) Self Report Pain Assessment Left Arm(s) Reported Pain Level 5 Pain Frequency Chronic,Continuous Other Pain Description discomfort medial humerus and lateral trunk Skin Inspection Location Left Upper Extremity Palpation Findings Warm Skin Temperature Tissue Texture Firm Lymphedema Stage II Skin Inspection Comment L UE with normal skin color, minimal firmness of tissue over proximal anterior- medial forearm; no tenderness reported with palpation; pt to dept with her velcro compression garment intact; she brought in her new compression sleeve; applied and it has good fit; pt reports comfortable: Lymphediva, size small, short length, 20-30 mmHg; reinforced and discussed with pt: wear compression sleeve daily, can sleep with velcro garment if arm is more swollen ; replacing sleeve every ~ 6 months; monitor skin, continue MLD; pt reports has not heard if insurance has approved her home compression pump or not yet. UE Circumferential Measurement UE Lymphedema Side Left Mid-Proximal Third Finger (cm) 5.4 Palm (cm) 17.4 Wrist Crease (cm) 14.5 4 cm From Wrist (cm) 15.8 8 cm From Wrist (cm) 18 12 cm From Wrist (cm) 21.4 16 cm From Wrist (cm) 23 20 cm From Wrist (cm) 24.4 24 cm From Wrist (cm) 26 28 cm From Wrist (cm) 30.6 32 cm From Wrist (cm) 32 36 cm From Wrist (cm)
--- NOTE | 2022-03-14 13:18 | PCPTNOTE ---
Addendum entered by Dory Chester, PT 05/04/22 08:06: pt is also elevating her arm when she is at rest, using a pillow to prop it up. Original Note: 03-14-22: addendum to discharge summary: Mrs. Rashid Hoskins continues to have lymphedema over L arm and lateral trunk, with circumferential measurement of L arm, up to 40 cm from wrist, is 34.2 cm larger than her R UE. She has received 4 weeks of PT treatments including: UE exercises, manual lymph drainage and education for self care, self MLD and has obtained a compression garment/sleeve of 20-30 mmHg. Lynne would benefit from a home intermittent compression pump for daily use to assist her with managing her lateral trunk and L UE lymphedema.
== END 2022-03-15 16:25 | disposition home or self-care (01) ==
LOC: ANHPT 12:30
PROVIDERS: PCP Family Medicine; Referring Provider Internal Medicine Hematology & Oncology; Visit Provider Internal Medicine Hematology & Oncology
DX: I89.0 Lymphedema, not elsewhere classified (principal)
CPT/HCPCS: 97016; 97140; 97161

== ENCOUNTER 2022-07-26 14:22 | Outpatient (CLI) | payer MEDICARE, SELFPAY ==
--- NOTE | ~2022-07-26 | MM_ITS ---
EXAMINATION: MM screening nicole BI w kate HISTORY: Screening TECHNIQUE: Craniocaudal and mediolateral oblique 3-D tomosynthesis images were obtained and synthetic 2-D images were generated. CAD analysis was submitted and interpreted. COMPARISON: Comparison to multiple prior studies sequentially, with oldest reviewed study dated 07/14. BREAST PARENCHYMAL COMPOSITION: There are scattered areas of fibroglandular density. FINDINGS: There is a developing asymmetry in the lower central aspect of the right breast. The left b reast is stable without evidence for malignancy. IMPRESSION: 1. Developing asymmetry lower central aspect of the right breast. 2. Additional mammographic views and possible breast ultrasound are recommended. BI-RADS Category 0: Incomplete: Needs additional imaging evaluation. Reviewed, dictated and finalized at location A. IMPRESSION: 1. Developing asymmetry lower central aspect of the right breast. 2. Additional mammographic views and possible breast ultrasound are recommended . BI-RADS Category 0: Incomplete: Needs additional imaging evaluation.
== END 2022-07-26 14:23 | disposition home or self-care (01) ==
LOC: ANHIMG 14:24
PROVIDERS: PCP Family Medicine; Visit Provider Internal Medicine Hematology & Oncology
DX: Z12.31 Encounter for screening mammogram for malignant neoplasm of breast (principal); R92.8 Other abnormal and inconclusive findings on diagnostic imaging of breast
CPT/HCPCS: 77063; 77067

== ENCOUNTER 2022-07-26 14:50 | Outpatient (CLI) | payer MEDICARE, SELFPAY ==
[2022-07-26 15:06] LABS: Basophils Absolute Auto 0.1 K/mm3 (0.0-0.1); Basophils Percent Auto 0.8 % (0.2-1.2); Eosinophils Absolute Auto 0.3 K/mm3 (0-0.3); Eosinophils Percent Auto 4.1 % (0-4.4); Hematocrit 43.2 % (37.0-47.0); Hemoglobin 13.9 g/dL (12.0-15.0); Immature Granulocyte Absolute 0.03 K/mm3 (0.00-0.031); Immature Granulocyte Percent A 0.4 % (0-0.5); Lymphocytes Absolute Auto 1.77 K/mm3 (0.9-3.2); Lymphocytes Percent Auto 24.8 % (18.3-44.2); Mean Corpuscular HGB Conc 32.2 g/dl (32-36); Mean Corpuscular Hemoglobin 30.7 pg (26-34); Mean Corpuscular Volume 95.4 fl (80-100); Monocytes Absolute Auto 0.7 K/mm3 (0.1-0.6); Monocytes Percent Auto 9.8 % (2.6-8.5); Neutrophils Absolute Auto 4.3 K/mm3 (1.3-6.7); Neutrophils Percent Auto 60.1 % (45.5-73.1); Platelet Count Result 269 k/mm3 (150-375); Red Blood Count 4.53 M/mm3 (4.2-5.4); Red Cell Distribution Width 13.3 % (11.5-14.5); White Blood Count 7.2 K/mm3 (4.5-10.0)
[2022-07-26 16:04] LABS: Alanine Aminotransferase 19 U/L (6-35); Albumin Level 4.3 g/dL (3.5-5.1); Alkaline Phosphatase 96 U/L (38-126); Anion Gap 7 mmol/L (8-16); Aspartate Amino Transferase 21 U/L (14-36); Bilirubin,Total 0.8 mg/dL (0.2-1.3); Blood Urea Nitrogen 20 mg/dL (7-17); Calcium 9.1 mg/dL (8.4-10.2); Carbon Dioxide 26 mmol/L (22-30); Chloride 105 mmol/L (98-107); Estimated Glomerular Filt Rate > 60; Glucose 96 mg/dL (65-110); Sodium 138 mmol/L (137-145)
[2022-07-29 07:30] LABS: CA 15-3 7 U/mL (<32)
== END 2022-07-26 14:51 | disposition home or self-care (01) ==
LOC: ANHLAB 14:52
PROVIDERS: PCP Family Medicine; Visit Provider Internal Medicine Hematology & Oncology
DX: C50.412 Malignant neoplasm of upper-outer quadrant of left female breast (principal); Z17.0 Estrogen receptor positive status [ER+]
CPT/HCPCS: 36415; 77063; 77067; 80053; 85025; 86300

== ENCOUNTER 2022-08-16 13:32 | Outpatient (CLI) | payer MEDICARE, SELFPAY ==
--- NOTE | ~2022-08-16 | MMUS_ITS ---
EXAMINATION: MM diagnostic nicole RT w kate, US breast RT limited HISTORY: Follow-up right breast asymmetry TECHNIQUE: Additional 3-D tomosynthesis images of the right breast were performed and synthetic 2-D i mages were generated. CAD analysis was submitted and interpreted. High resolution Limited right breas t ultrasound was performed. COMPARISON: Comparison to multiple prior studies sequentially, with oldest reviewed study dated 07/15. BREAST PARENCHYMAL COMPOSITION: Breast composed of scattered areas of fibroglandular density FINDINGS: MAMMOGRAPHIC FINDINGS: There are no suspicious masses, calcifications or architectural distortion to suggest malignancy. Rig ht breast asymmetries are less dense with spot compression views, compatible with superimposed fibrog landular tissue. ULTRASOUND: Limited right breast ultrasound: Normal heterogeneous echotexture without focal solid or cystic mass. IMPRESSION: 1. No evidence for malignancy in the right breast. 2. Routine yearly screening mammogram and regular clinical breast examination are recommended. BI-RADS Category 1: Negative Reviewed, dictated and finalized at location A. IMPRESSION: 1. No evidence for malignancy in the right breast. 2. Routine yearly screening mammogram and regular clinical breast examination a re recommended. BI-RADS Category 1: Negative
== END 2022-08-16 13:33 | disposition home or self-care (01) ==
PROVIDERS: PCP Family Medicine; Visit Provider Internal Medicine Hematology & Oncology
DX: C50.412 Malignant neoplasm of upper-outer quadrant of left female breast (principal); Z17.0 Estrogen receptor positive status [ER+]
CPT/HCPCS: 76642; 77061; 77065; G0279

== ENCOUNTER 2022-09-20 12:55 | Outpatient (CLI) | payer MEDICARE, SELFPAY ==
--- NOTE | ~2022-09-20 | DEXA_ITS ---
Bone Density Report Name: JEFFERY ALONZO Age: 77 Sex: Female Ethnicity: White Date of : 1945 Indication: postmenopausal osteoporosis; monitoring treatment; height loss; cancer; Referring Provider: MALCOLM MATSON Study: Bone densitometry was performed. Exam Date: September 20, 2022 Accession number: [id number] Bone Density: Region BMD T-score Z-score Classification AP Spine(L3, L4) 1.126 0.2 2.9 Normal Femoral Neck (Left) 0.585 -2.4 -0.2 Osteopenia Total Hip (Left) 0.691 -2.1 -0.1 Osteopenia Femoral Neck (Right) 0.566 -2.5 -0.4 Osteoporosis Total Hip (Right) 0.621 -2.6 -0.7 Osteoporosis Total Hip Mean 0.656 -2.4 -0.4 Osteopenia World Health Organization criteria for BMD impression classify patients as: Normal (T-score at or above -1.0), Osteopenia (T-score between -1.0 and -2.5), or Osteoporosis (T-score at or below -2.5). 10-year Fracture Risk: FRAX not reported because: Some T-score for Spine Total or Hip Total or Femoral Neck at or below -2.5 Treated for osteoporosis Previous Exams: Region Exam Age BMD T-score BMD Change BMD Change Date g/cm2 vs Baseline vs Previous AP Spine (L3-L4) 09/20/2022 77 1.126 0.2 0.219 (24.1%)* 0.219 (24.1%)* 01/21/2020 74 0.907 -1.8 Total Hip(Left) 09/20/2022 77 0.691 -2.1 0.047 (7.3%)* 0.047 (7.3%)* 01/21/2020 74 0.644 -2.4 Total Hip(Right) 09/20/2022 77 0.621 -2.6 0.014 (2.4%) 0.014 (2.4%) 01/21/2020 74 0.606 -2.8 *Denotes significance at 95% confidence level, LSC for AP Spine = 0.022 g/cm2, LSC for Total Hip = 0.027 g/cm2 Clinical Information Provided by Patient: Is being treated for osteoporosis Has used the following medications: Prolia (i.e. denosumab) Has the following medical conditions: Cancer Patient maximum height was 60 Menopause Age: 53 No regular weight bearing exercise Drinks caffeinated beverages Onset of menses at age 11 Number of children 2 Impression: The patient has osteoporosis, based on the Right Total Hip T-score. No significant bone loss was observed. Discussion: PATIENT UNDER TREATMENT WITH NO SIGNIFICANT BMD LOSS SINCE LAST EXAM. In an untreated patient, BMD typically declines with age. A lack of decline or gain is usually a sign that treatment is efficacious and fracture risk is reduced. It is important to ask patients whether they are taking their medications and to encourage continued and appropriate compliance with their os
== END 2022-09-20 12:56 | disposition home or self-care (01) ==
LOC: ANHIMG 12:56
PROVIDERS: PCP Family Medicine; Visit Provider Physician Assistant
DX: Z78.0 Asymptomatic menopausal state (principal); M85.852 Other specified disorders of bone density and structure, left thigh; M85.851 Other specified disorders of bone density and structure, right thigh; M81.0 Age-related osteoporosis without current pathological fracture
CPT/HCPCS: 77080

== ENCOUNTER 2022-10-10 14:00 | Outpatient (CLI) | payer MEDICARE, SELFPAY ==
--- NOTE | 2022-10-10 15:22 | ECG_ITS ---
Measurements Intervals Fowler Rate: 72 P: 52 FL: 150 QRS: -9 QRSD: 77 T: 26 QT: 392 QTc: 429 Interpretive Statements SINUS RHYTHM BASELINE ARTIFACT PRESENT NO PREVIOUS ECG AVAILABLE FOR COMPARISON Electronically Signed On 10-10-2022 15:54:26 STAVE MACHINE TENDER by Makenzie Ford M.D.
[2022-10-10 15:57] LABS: Basophils Percent Auto 0.5 % (0.2-1.2); Eosinophils Absolute Auto 0.2 K/mm3 (0-0.3); Eosinophils Percent Auto 2.8 % (0-4.4); Hematocrit 43.7 % (37.0-47.0); Hemoglobin 13.8 g/dL (12.0-15.0); Immature Granulocyte Absolute 0.05 K/mm3 (0.00-0.031); Immature Granulocyte Percent A 0.7 % (0-0.5); Lymphocytes Absolute Auto 1.61 K/mm3 (0.9-3.2); Lymphocytes Percent Auto 21.6 % (18.3-44.2); Mean Corpuscular HGB Conc 31.6 g/dl (32-36); Mean Corpuscular Hemoglobin 30.2 pg (26-34); Mean Corpuscular Volume 95.6 fl (80-100); Mean Platelet Volume 9.7 fl (7.4-10.4); Monocytes Absolute Auto 0.9 K/mm3 (0.1-0.6); Monocytes Percent Auto 11.6 % (2.6-8.5); Neutrophils Absolute Auto 4.7 K/mm3 (1.3-6.7); Neutrophils Percent Auto 62.8 % (45.5-73.1); Platelet Count Result 329 k/mm3 (150-375); Red Blood Count 4.57 M/mm3 (4.2-5.4); White Blood Count 7.4 K/mm3 (4.5-10.0)
[2022-10-10 16:04] LABS: Albumin Level 4.2 g/dL (3.5-5.1); Anion Gap 2 mmol/L (8-16); Blood Urea Nitrogen 9 mg/dL (7-17); Calcium 8.5 mg/dL (8.4-10.2); Carbon Dioxide 31 mmol/L (22-30); Chloride 105 mmol/L (98-107); Estimated Glomerular Filt Rate > 60; Glucose 96 mg/dL (65-110); Potassium 4.5 mmol/L (3.4-5.0); Sodium 138 mmol/L (137-145)
[2022-10-10 16:08] LABS: INR 1.1; Prothrombin Time 13.3 Seconds (11.1-14.7)
[2022-10-10 16:09] LABS: Add Urine Microscopic? NO; Appearance Urine Clear (Clear); Bilirubin Urine Negative (Negative); Blood Urine Negative (Negative); Color Urine Light Yellow (Yellow); Glucose Urine UA Negative (Negative); Ketones Urine Negative (Negative); Leukocyte Esterase Ur Negative LEU/UL (Negative); Nitrate Urine Negative (Negative); Partial Thromboplastin Time 27.8 SECONDS (22.3-36.8); Protein Urine Negative (Negative); Specific Grav Ur <= 1.005 (1.001-1.035); Urobilinogen Urine 0.2 mg/dL (<2.0); pH Urine 6.5 (5.0-9.0)
[2022-10-10 16:13] LABS: Urine Cotinine NEGATIVE
[2022-10-10 16:24] LABS: Hemoglobin A1C 5.8 % (<5.7)
== END 2022-10-10 14:01 | disposition home or self-care (01) ==
PROVIDERS: PCP Family Medicine; Visit Provider Orthopaedic Surgery
DX: M17.11 Unilateral primary osteoarthritis, right knee (principal); Z01.818 Encounter for other preprocedural examination
CPT/HCPCS: 80048; 80307; 81003; 82040; 83036; 85025; 85610; 85730; 87081; 93005

== ENCOUNTER 2022-10-31 01:34 | Day surgery (SDC) | payer MEDICARE, SELFPAY ==
[2022-10-10 14:11] VITALS: BMI 30.8
--- NOTE | 2022-10-10 14:48 | PC.NURSE ---
Report to the Outpatient Waiting Room, entrance under the green pavilion located off [facility], at time ___0600____ on date _10/31/22 . Planned Procedure Time: __30 . Time changes happen often and if your time is changed the preop area will call you the afternoon before. - You and your visitor will be asked to self-screen and do not enter if you have any COVID symptoms. - Only one visitor is requested with a max of two and NO children visitors are allowed at this time. - The patient visitor may be requested to leave or wait in car when not with patient due to distancing restrictions. - A mask is optional within the hospital. Patients may have clear liquids (water, carbonated beverages, clear teas, apple juice) until 3 hours prior to surgery with a maximum of 20 ounces. - No food from midnight until time of surgery - Infants may have breast milk until 4 hours before surgery, formula 6 hours prior to surgery. - Children will be allowed to drink immediately following surgery. If applicable, please bring a bottle or sippy cup to assist with drinking. Juice, water, soda, and popsicles are readily available. For infants on formula, please bring formula the day of surgery. Pacifiers are allowed. Take the following medications with a SIP of water the morning of surgery: __FLUOXETINE,PREGABALIN Medications to discontinue per physician __IBUPROFEN PER DR KATE. ALL VITAMINS AND SUPPLEMENTS 3 DAYS PRE OP LAST DOSE 10/27/22 Please no make-up, nail north korean, hairspray, perfume, deodorant, or body powder the day of surgery. No jewelry (including any body piercings) or valuables the day of surgery, leave them at home. Please take a shower or bath the night before, or the morning of, surgery with an antibacterial soap. Wear comfortable, loose fitting clothing. Children are encouraged to wear pajamas. - Jewelry must be removed prior to entering the operating room. Rings and piercings that are not removed may be cut off. - The hospital will not accept responsibility for valuables. - Please leave all valuables, including medications, at home the day of surgery. If you are going home after surgery, a licensed gas truck driver must drive you home. - NO public transportation without another adult if you receive anesthesia. - We recommend that an adult stay with you for 24 hours following discharge. - We also recommend that you do not drive, make important decision, drink alcoholic beverages, or take any drugs that were not prescribed by your health care provider for at least 24 hours after your discharge time. Follow any additional instructions given to you from your surgeon. If you or anyone in your household have experienced Covid symptoms in the past week, please notify your surgeon or the nurse liaison at the phone number below for possible testing. VERBAL AND WRITTEN instructions given to __PATIENT and asked if any additional questions and then verbalized understanding. Patient advised to call surgeon office or pre surgery nurse liaison [phone] if any additional questions.
[2022-10-10 14:51] VITALS: BP 138/71; PULSE 77; RESP 18; TEMP 36.8; O2SAT 97
[2022-10-31] VITALS (14 sets, daily range): BP systolic 108–138; BP diastolic 52–83; PULSE 62–80; RESP 12–20; TEMP 36.3–37; O2SAT 92–100; BMI 30.5
--- NOTE | ~2022-10-31 | XR_ITS ---
Right Knee Technique: Portable AP and crosstable lateral views Clinical History: Status post TKR Findings: Patient is status post total knee replacement. Orthopedic hardware alignment appears anatom ic. No hardware complication is evident. Subcutaneous emphysema and swelling is likely postoperative in nature. No acute osseous fracture is seen. Impression: Status post total knee replacement, without evidence of hardware complication. Reviewed, dictated and finalized at location . [place] OPERATIONS MANAGER Impression: Status post total knee replacement, without evidence of hardware complication.
[2022-10-31] MEDS: LACTATED RINGERS 1,000 ML 30 ML IV CONT ×2 (06:50→10:15)
[2022-10-31] MEDS: ACETAMINOPHEN 500 MG TABLET 1000 MG PO (07:12)
[2022-10-31] MEDS: TRANEXAMIC ACID 1,000MG/ISO100 1,000 MG/100 ML BAG 200 MG IVPB (07:13)
--- NOTE | 2022-10-31 07:15 | WPDANESEPPF ---
Anes - Initial Pre Proc Eval Procedure: Operation Date: 10/31/22 07:30 Proposed Procedures p Right Total Knee Arthroplasty - Tad Muniz MD Date/Time: 10/31/22 07:15 Surgeon: Tad Muniz MD Pre Op Diagnosis: Right Knee DJD Patient Data Age: 77 Gender: F Height: 1.5 m Weight: 69.3 kg Last Vital Signs Temp 36.8 C 10/10/22 14:51 Pulse 77 10/10/22 14:51 Resp 18 10/10/22 14:51 BP 138/71 10/10/22 14:51 Pulse Ox 97 10/10/22 14:51 O2 Del Method Room Air 10/10/22 14:51 Allergies Allergy/AdvReac Type Severity Reaction Status Date / Time No Known Allergies Allergy Verified 10/31/22 06:22 Home Medications Medication Instructions Recorded Confirmed Type multivitamin 1 tablet PO DAILY 08/06/19 10/29/22 History anastrozole 1 mg tablet 1 mg PO DAILY 09/08/19 10/29/22 History cyanocobalamin (vitamin B-12) 1,000 mcg PO DAILY 09/08/19 10/29/22 History 1,000 mcg capsule cholecalciferol (vitamin D3) 10 10 mcg PO BID 06/03/20 10/29/22 History mcg (400 unit) capsule denosumab 60 mg/mL subcutaneous 60 mg subcut [id number] 05/14/22 10/29/22 History syringe (Prolia) celecoxib 200 mg capsule See Rx Instructions .Route 09/05/22 10/29/22 Rx .COMPLEX #30 caps pregabalin 150 mg capsule (Lyrica) 150 mg PO BID #60 caps 09/10/22 10/29/22 Rx hydroxyzine HCl 25 mg tablet 25 mg PO BID PRN Insomnia 10/10/22 10/29/22 History ibuprofen 600 mg tablet 600 mg PO QID PRN Pain 10/10/22 10/29/22 History chlorhexidine gluconate 4 % 1 applic topical ONCE #237 mL 10/24/22 10/29/22 Rx topical liquid (Hibiclens) fluoxetine 20 mg capsule See Rx Instructions .Route 10/25/22 10/25/22 Rx .COMPLEX #30 caps hydrocortisone 2.5 % topical cream 1 applic topical BID #30 grams 10/25/22 10/25/22 Rx Patient hx anesthesia problems: none Family hx anesthesia problems: none Results Review: All pre-operative results and documents have been reviewed as part of the pre-operative evaluation. [facility], [facility] Past Medical History Medical History Acquired valgus deformity of right ankle Advance care planning Arthritis Arthritis of ankle Degenerative arthritis of right knee Degenerative joint disease, ankle, foot, toe Estrogen receptor positive status (ER+) (~2017) GBS (Guillain Crossroads syndrome) Guillain-Crossroads H/O poliomyelitis History of hypokalemia (~2018) History of vaginal delivery (~1961) History of vaginal delivery (~1967) Leg weakness, bilateral (~2017) Malignant tumor of breast Negative depression screening 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 S/P chemotherapy, time since greater than 12 weeks (~2017) 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story H/O arthrodesis (~1956) H/O dilation and curettage (~1974) S/P lumpectomy, left breast (~2017) S/P radiation therapy 4-12 wks ago (~2018) Family History Family History Mother Hypertension Family history of elevated blood lipids Family history of cardiovascular disease AAA (abdominal aortic aneurysm, ruptured) Sibling Hypertension Family history of diabetes mellitus in first degree relative Father Family history of osteoarthritis Family history of heart disease in male family member before age 55 Patient's father is Family history of cardiovascular disease Family history of arthritis Other Arthritis Diabetes mellitus Heart disease Social History Social History Social History: Smoking status: Never smoker Second hand tobacco smoke exposure: No Additional smoking assessment comments: DENIES ANY FORM OF T
--- NOTE | 2022-10-31 07:20 | SUR.PREOP ---
0720- Dr. Muniz to bedside to assess patient's knee due to scratches noted on assessment. Per Dr. Muniz OK to proceed with procedure.
--- NOTE | 2022-10-31 07:20 | WPDHPUPDATE1 ---
History and Physical Update Update Date/Time: 10/31/22 07:21 History and Physical has been reviewed, including an updated exam of the patient. There are NO changes in the patient's condition. Risks, benefits, and alternatives have been discussed and questions answered. Patient agrees to proceed with procedure.
[2022-10-31] MEDS: ceFAZolin 2 GM/D5W 50 ML 2 GM/50 ML BAG IVPB ×2 (07:41→16:25)
--- NOTE | 2022-10-31 07:49 | WPDANESPNB ---
Anes - Peripheral Nerve Block Date/Time: 10/31/22 07:49 I have discussed with the patient/family/POA the placement of a peripheral nerve block for post-operative pain management, including associated risks, benefits, complications, and side effects. Alternative methods of post-operative analgesia were detailed. Questions were solicited and answers provided to the satisfaction of the patient/family/POA. Time-Out: A pre-procedural Time-Out was completed immediately before starting the procedure and confirmed: Patient Identification, Site, Procedure, Patient Position and the Availability of Requisite Equipment. Clinical Indications: Acute post-operative pain management requested by the operative surgeon. Nerve Block Insertion Note Anes-nerve block: adductor canal right Patient position: supine Skin prep: chlorhexidine Needle: 22 gauge, stimulating, insulated echogenic needle. Needle length: 80 mm Technique: ultrasound Technique comment: mid2mg [id number] Injectate: bupivacaine 0.5% with epi 5 mcg/ml (30ml) and dexamethasone (mg) (4) Observations: tolerated well Complications: none Procedure start time:: 731 Procedure end time:: 738
[2022-10-31] MEDS: GENTAMICIN BONE CEMENT REFOBACIN 1 EACH TOPICAL (08:58)
--- NOTE | 2022-10-31 10:16 | W.PM.PROC2 ---
Procedure Note - Detailed Date of Procedure 10/31/22 Pre-op Diagnosis Right Knee DJD Post-op Diagnosis Same Procedure Performed R TKA Surgeon Tad Muniz MD Anesthesia General Description of Procedure THE RIGHT KNEE WAS PREPPED AND DRAPED IN THE STERILE FASHION. A MIDLINE SKIN INCISION WAS MADE. A MEDIAL PARAPATELLAR ARTHROTOMY WAS MADE. THE PATELLA WAS EVERTED. THERE WAS TRICOMPARTMENT DJD. THERE WAS MINIMAL PATELLA DJD. AN INTRAMEDULLARY GATITO WAS PLACED IN THE FEMUR. A DISTAL FEMORAL CUT WAS MADE IN 5 DEGREES OF VALGUS REMOVING APPROXIMATELY 9 MM OF BONE FROM THE DISTAL FEMUR. THE FEMUR WAS SIZED TO 57.5. A 57.5 FEMORAL CUTTING BLOCK WAS PLACED IN 3 DEGREES OF EXTERNAL ROTATION AND IN ALIGNMENT WITH JODY'S LINE AND THE TRANSEPICONDYLAR AXIS. ANTERIOR POSTERIOR AND CHAMFER CUTS WERE MADE. THE CUTS WERE EXCELLENT. NEXT AN INTRAMEDULLARY CUTTING GUIDE WAS PLACED IN THE TIBIA. A TRANS TIBIAL CUT WAS MADE ALONG THE LONG AXIS OF THE TIBIA. APPROXIMATELY 10 MM OF BONE WAS REMOVED FROM THE HIGH SIDE OF THE TIBIA. THE TIBIA WAS THEN PLANED TO A SMOOTH SURFACE. POSTERIOR FEMORAL OSTEOPHYTES WERE REMOVED FROM THE FEMORAL CONDYLES. A 67 TIBIAL TRIAL WAS PLACED IN ALIGNMENT WITH THE 1/3 MEDIAL ASPECT OF THE TIBIAL TUBERCLE. THEN A 57.5 FEMORAL TRIAL COMPONENT WAS PLACED. BOTH HAD EXCELLENT FITS. EVENTUALLY A 12 POLYETHYLENE TRIAL COMPONENT WAS PLACED. THE KNEE WAS TAKEN THROUGH A RANGE OF MOTION. THE KNEE CAME OUT TO FULL EXTENSION. THERE WAS NO ABNORMAL TILT TO THE PATELLA. THERE WAS GOOD A/P AND VARUS/VALGUS STABILITY. THERE WAS NO EXCESSIVE ROLL BACK WITH FLEXION. THE TRIAL COMPONENTS WERE REMOVED. THEN A 57.5 FEMORAL COMPONENT AND 67 TIBIAL COMPONENT WITH A 12 POLYETHYLENE COMPONENT WERE CEMENTED INTO PLACE. ONCE THE CEMENT WAS HARD THE KNEE WAS TAKEN THROUGH A ROM AGAIN AND FOUND TO BE STABLE WITH NO PATELLA TILT NO EXCESSIVE ROLL BACK WITH FLEXION AND GOOD STABILITY WITH COMPLETE AND FULL EXTENSION. THE KNEE WAS IRRIGATED WITH STERILE BETADINE AND WATER FOR ABOUT 3 MINUTES. THE BLEEDERS WERE CAUTERIZED. THE ARTHROTOMY WAS REPAIRED WITH NUMBER 1 VICRYL. THE SUB CUTANEOUS LAYER WITH 2-0 VICRYL AND THE SKIN WITH TORO. THE WOUND WAS WASHED AND A STERILE DRESSING WAS APPLIED. PATIENT WAS EXTUBATED. Estimated Blood Loss -150.0 Pathology None sent Complications No immediate complications Condition Stable Disposition PACU
[2022-10-31] MEDS: fentaNYL CITRATE INJ (*CRX) 100 MCG/2 ML VIAL 25 MCG IV PUSH ×6 (10:22→11:17)
[2022-10-31] MEDS: ONDANSETRON INJ 4 MG/2 ML VIAL IV PUSH (10:24)
--- NOTE | 2022-10-31 11:49 | ADMGEN ---
This patient, Lynne Hoskins, was admitted to [facility] Surgery-1. Patient/family oriented to hospital policies and general routines including ID bracelet, bed and alarms, visiting hours, pain management, procedures, bathroom and other care routines, personal items, smoking policy, room service/diet, and visiting hours. Information on how to activate the Rapid Response Team has been discussed. Patient/Family are encouraged to report perceived risks to care and to ask questions if they do not understand what they are told or what they should do.
[2022-10-31] MEDS: SODIUM CHLORIDE 0.9% IV 1,000 ML 125 ML IV CONT (12:28)
[2022-10-31] MEDS: oxyCODONE/ACETAMINOPHEN (*CRX) 5-325 MG TABLET 1 TABLET PO ×2 (12:35→18:43)
[2022-10-31] MEDS: CHOLECALCIFEROL 400 UNITS TABLET (VIT D) PO (17:37)
[2022-10-31] MEDS: SENNA/DOCUSATE SODIUM TABLET 2 TAB PO (17:37)
[2022-10-31] MEDS: PREGABALIN (*CRX) 75 MG CAPSULE 150 MG PO (17:37)
[2022-10-31] MEDS: ASPIRIN 325 MG ENTERIC TABLET PO (21:08)
[2022-11-01] MEDS: ceFAZolin 2 GM/D5W 50 ML 2 GM/50 ML BAG IVPB ×2 (00:29→07:45)
[2022-11-01] MEDS: ACETAMINOPHEN 500 MG TABLET 1000 MG PO ×2 (00:30→08:27)
[2022-11-01 05:29] LABS: Basophils Percent Auto 0.2 % (0.2-1.2); Hematocrit 34.1 % (37.0-47.0); Hemoglobin 10.6 g/dL (12.0-15.0); Immature Granulocyte Absolute 0.06 K/mm3 (0.00-0.031); Immature Granulocyte Percent A 0.5 % (0-0.5); Lymphocytes Absolute Auto 1.12 K/mm3 (0.9-3.2); Lymphocytes Percent Auto 8.8 % (18.3-44.2); Mean Corpuscular HGB Conc 31.1 g/dl (32-36); Mean Corpuscular Hemoglobin 29.6 pg (26-34); Mean Corpuscular Volume 95.3 fl (80-100); Mean Platelet Volume 9.8 fl (7.4-10.4); Monocytes Absolute Auto 1.1 K/mm3 (0.1-0.6); Monocytes Percent Auto 8.8 % (2.6-8.5); Neutrophils Absolute Auto 10.4 K/mm3 (1.3-6.7); Neutrophils Percent Auto 81.7 % (45.5-73.1); Platelet Count Result 221 k/mm3 (150-375); Red Blood Count 3.58 M/mm3 (4.2-5.4); White Blood Count 12.7 K/mm3 (4.5-10.0)
[2022-11-01 05:41] LABS: Anion Gap 3 mmol/L (8-16); Blood Urea Nitrogen 12 mg/dL (7-17); Calcium 7.8 mg/dL (8.4-10.2); Carbon Dioxide 27 mmol/L (22-30); Chloride 106 mmol/L (98-107); Estimated Glomerular Filt Rate > 60; Glucose 118 mg/dL (65-110); Potassium 4.3 mmol/L (3.4-5.0); Sodium 136 mmol/L (137-145)
[2022-11-01 05:49] VITALS: BP 116/57; PULSE 66; RESP 18; TEMP 36.9; O2SAT 99
[2022-11-01] MEDS: CELECOXIB 200 MG CAPSULE BY MOUTH (07:45)
[2022-11-01] MEDS: CHOLECALCIFEROL 400 UNITS TABLET (VIT D) PO (07:45)
[2022-11-01] MEDS: SENNA/DOCUSATE SODIUM TABLET 2 TAB PO (07:45)
[2022-11-01] MEDS: ANASTROZOLE (*CHEMO) 1 MG TABLET PO (07:45)
[2022-11-01] MEDS: CYANOCOBALAMIN 1,000 MCG TABLET 1000 MCG PO (07:45)
[2022-11-01] MEDS: PREGABALIN (*CRX) 75 MG CAPSULE 150 MG PO (07:45)
[2022-11-01] MEDS: polyethylene glycoL 3350 17 GM POWD.PACK PO (07:46)
[2022-11-01] MEDS: MULTIVITAMINS THERAPEUTIC TAB (*BKC) 1 TABLET PO (07:46)
[2022-11-01] MEDS: ASPIRIN 325 MG ENTERIC TABLET PO (07:49)
--- NOTE | 2022-11-01 08:04 | P.PNAN_ITS ---
Anes - Prog Note Post-Op Date/Time: 11/01/22 08:04 Vital Signs: Last Vital Signs Temp 36.9 C 11/01/22 05:49 Pulse 66 11/01/22 05:49 Resp 18 11/01/22 05:49 BP 116/57 L 11/01/22 05:49 Pulse Ox 99 11/01/22 05:49 O2 Del Method Room Air 10/31/22 13:31 O2 Flow Rate 2 10/31/22 11:30 Pain Score (VAS): 0 I/O: Intake & Output 10/31/22 11/01/22 11/01/22 23:59 07:59 15:59 Intake Total 940 608 Balance 940 608 Laboratory Tests 11/01/22 05:21 11/01/22 05:21 10/31/22 11/01/22 11/01/22 06:53 05:21 05:21 WBC 12.7 H RBC 3.58 L Hgb 10.6 L D Hct 34.1 L MCV 95.3 MCH 29.6 MCHC 31.1 L RDW 14.0 Plt Count 221 MPV 9.8 Immature Gran % (Auto) 0.5 Neut % (Auto) 81.7 H Lymph % (Auto) 8.8 L [place] % (Auto) 8.8 H Eos % (Auto) 0.0 Baso % (Auto) 0.2 Lymph # (Auto) 1.12 [place] # (Auto) 1.1 H Eos # (Auto) 0.0 Baso # (Auto) 0.0 Abs Immat Gran (auto) 0.06 H Absolute Neuts (auto) 10.4 H Absolute Nucleated RBC 0.0 Nucleated RBC % 0.0 Sodium 136 L Potassium 4.3 Chloride 106 Carbon Dioxide 27 Anion Gap 3 L BUN 12 Creatinine 0.70 Estim Creat Clear Calc Not Reportable Estimated GFR > 60 Glucose 118 H Calcium 7.8 L Antibody Screen Negative Patient Feedback: Patient satisfied with anesthetic care.
--- NOTE | 2022-11-01 09:07 | PM.PNORT ---
Progress Note: A&P Assessment and Plan (1) S/P total knee arthroplasty: Code(s): Z96.659 - Presence of unspecified artificial knee joint Status: Acute Assessment and Plan: POD #1 : Right TKA Continue PT/OT. WBAT. Walker. HIGH FALL RISK. Continue pain control. Ice Knee. Protect skin. DVT prophylaxis with Aspirin x28 days. SCDs. Incentive Spirometry Use reviewed. Monitor Dressing. Change prior to discharge. Bowel Regimen. Dispo: Home with Home Health pending progress with PT/OT Plan Reviewed postoperative imaging, labs and assessment with attending MD, Dr. Muniz. Agrees with current plan as indicated above. No further recommendations. Subjective Subjective Date/Time Seen: 11/01/22 09:07 Post Op day: 1 Interval history: POD#1: Right TKA No new complaints. Pain well controlled. Hopeful for discharge home today. Review of Systems Review of Systems: All systems reviewed & are unremarkable except as noted in HPI and below Constitutional: Constitutional: Denies fever(s) and Denies headache(s) ENT: Denies headache(s) Cardiovascular: Cardiovascular: Denies chest pain, Denies diaphoresis, Denies palpitations and Denies dyspnea Respiratory: Respiratory: Denies dyspnea Gastrointestinal: Gastrointestinal: Denies abdominal pain, Denies constipation, Denies nausea and Denies vomiting Genitourinary: Genitourinary: Reports nocturia and Denies dysuria Musculoskeletal: Musculoskeletal: Reports arthralgias (Right Knee ) and Reports joint swelling (Right Knee ) Neurologic: Denies headache(s) Endocrine: Endocrine: Denies palpitations Exam Const: General: comfortable and no acute distress Resp: Effort & Inspection: normal respiratory effort Cardio: Rate: regular rate Rhythm: regular rhythm GI: GI Palp: Yes Soft to palpation, No Tenderness to palpation present (GI) and No Guarding due to palpation present (GI) Skin: General skin exam: wounds noted Wounds: wounds noted Other: Incision c/d/i. No surrounding redness/warmth. No hematoma. Mild ecchymosis. No wound dehiscence Neuro: Cognition (Neuro): normal cognition Other: NV intact aside from block. Moves toes. Sensation intact to light touch. +ankle dorsiflexion/plantarflexion. Extrem: Right lower extremity: normal to inspection, knee Details: tenderness (diffuse, mild ) Location: of the patella, swelling (diffuse, consistent with surgical intervention ), abnormal ROM Details: pain with active ROM during, pain with passive ROM during and with range as follows (limited due to recent surgical intervention ); able to extend lower leg actively and ecchymosis (mild ), lower leg (Negative Olga's Sign ) Details: normal to inspection; no erythema and no tenderness, ankle (+ankle dorsiflexion/plantarflexion ) Details: normal to inspection, no edema and normal ROM; no tenderness, no swelling and no ecchymosis and foot Details: normal capillary refill, normal to inspection, vascular exam Details: dorsalis pedis pulse present and motor-sensory exam Details: light-touch normal; no tenderness Left lower extremity: normal to inspection Psych: Mental Status: mental status grossly normal Objective Data Vital Signs Vital Signs: Vital Signs - 24 hr 10/31/22 10:15 10/31/22 10:30 10/31/22 10:45 Temperature 36.7 C Pulse Rate 72 80 75 Respiratory Rate 13 14 16 Blood Pressure 129/66 126/83 129/74 Pulse Oximetry 96 98 99 Oxygen Delivery Simple Face Mask Simple Face Mask Simple Face Mask Oxygen Flow Rate 8 8 8 10/31/22 11:00 10/31/22 11:15 10/31/22 11:30 Temperature Pulse Rate 77 76 71 Respiratory Rate 12 13 12 Blood Pressure 127/72 138/68 130/68 Pulse Oximetry 100 100 99 Oxygen Delivery Nasal Cannula Nasal Cannula Nasal Cannula Oxygen Flow Rate 3 2 2 10/31/22 11:55 10/31/22 12:10 10/31/22 12:40 Temperature 36.8 C 36.3 C L 36.7 C Pulse Rate 78 62 70 Respiratory Rate 20 20 18 Blood Pressure 129/64 128/57 L 131/81 Pulse Oximetry 9
--- NOTE | 2022-11-01 09:12 | PM.DS ---
DS: Admitting Diagnosis Discharge Date 11/01/22 Admitting Diagnosis Right Knee DJD DS: Discharge Diagnosis Discharge Diagnosis (1) S/P total knee arthroplasty: Code(s): Z96.659 - Presence of unspecified artificial knee joint Status: Acute Assessment and Plan: POD #1 : Right TKA Continue PT/OT. WBAT. Walker. HIGH FALL RISK. Continue pain control. Ice Knee. Protect skin. DVT prophylaxis with Aspirin x28 days. SCDs. Incentive Spirometry Use reviewed. Monitor Dressing. Change prior to discharge. Bowel Regimen. Dispo: Home with Home Health pending progress with PT/OT Plan Reviewed postoperative imaging, labs and assessment with attending MD, Dr. Muniz. Agrees with current plan as indicated above. No further recommendations. DS: Summary Hospital Course Reason for hospitalization: Right TKA Hospital Course: 77 year old female admitted s/p right TKA for postoperative medical management, paint control and mobilization with PT/OT. Patient progressed well with PT/OT. Pain and vitals stable throughout. They have been cleared to be discharged home with home health at this time. Follow up planned for 3 weeks in the outpatient orthopedic clinic with Dr. Muniz. Status at Discharge Functional status at discharge: uses cane/walker Overall status at discharge: patient is progressing back to baseline Time Spent with Patient Time attestation: Total time spent providing and/or coordinating discharge services: Exam Const: General: comfortable and no acute distress Resp: Effort & Inspection: normal respiratory effort Cardio: Rate: regular rate Rhythm: regular rhythm Skin: General skin exam: wounds noted Wounds: wounds noted Other: Incision c/d/i. No surrounding redness/warmth. No hematoma. Mild ecchymosis. No wound dehiscence Neuro: Cognition (Neuro): normal cognition Other: NV intact aside from block. Moves toes. Sensation intact to light touch. +ankle dorsiflexion/plantarflexion. Extrem: Right lower extremity: normal to inspection, knee Details: tenderness (diffuse, mild ) Location: of the patella, swelling (diffuse, consistent with surgical intervention ), abnormal ROM Details: pain with active ROM during, pain with passive ROM during and with range as follows (limited due to recent surgical intervention ); able to extend lower leg actively and ecchymosis (mild ), lower leg (Negative Olga's Sign ) Details: normal to inspection; no erythema and no tenderness, ankle (+ankle dorsiflexion/plantarflexion ) Details: normal to inspection, no edema and normal ROM; no tenderness, no swelling and no ecchymosis and foot Details: normal capillary refill, normal to inspection, vascular exam Details: dorsalis pedis pulse present and motor-sensory exam Details: light-touch normal; no tenderness Left lower extremity: normal to inspection Psych: Mental Status: mental status grossly normal DS: Data Data Completed and Pending Labs on day of discharge: Labs from last 24 hours 11/01/22 11/01/22 05:21 05:21 WBC 12.7 H RBC 3.58 L Hgb 10.6 L D Hct 34.1 L MCV 95.3 MCH 29.6 MCHC 31.1 L RDW 14.0 Plt Count 221 MPV 9.8 Immature Gran % (Auto) 0.5 Neut % (Auto) 81.7 H Lymph % (Auto) 8.8 L [place] % (Auto) 8.8 H Eos % (Auto) 0.0 Baso % (Auto) 0.2 Lymph # (Auto) 1.12 [place] # (Auto) 1.1 H Eos # (Auto) 0.0 Baso # (Auto) 0.0 Abs Immat Gran (auto) 0.06 H Absolute Neuts (auto) 10.4 H Absolute Nucleated RBC 0.0 Nucleated RBC % 0.0 Sodium 136 L Potassium 4.3 Chloride 106 Carbon Dioxide 27 Anion Gap 3 L BUN 12 Creatinine 0.70 Estim Creat Clear Calc Not Reportable Estimated GFR > 60 Glucose 118 H Calcium 7.8 L Discharge Plan Discharge Patient Disposition: Home Health Service Discharge Instructions: Post Op Total Knee Replacement Instructions Dr. Tad Muniz [phone] Your dressing will be changed prior to your discharge. You wi
== END 2022-11-01 10:05 | disposition home health service (06) ==
LOC: ANHSURGERY 06:05 → ANHSUROVER 11:37
PROVIDERS: PCP Family Medicine; Visit Provider Orthopaedic Surgery
PROC: (CPT 27447; principal; 2022-10-31 07:30)
DX: M17.11 Unilateral primary osteoarthritis, right knee (principal); G89.18 Other acute postprocedural pain; G62.0 Drug-induced polyneuropathy; G14 Postpolio syndrome; Z85.3 Personal history of malignant neoplasm of breast; Z92.21 Personal history of antineoplastic chemotherapy; Z92.3 Personal history of irradiation; E66.9 Obesity, unspecified; Z68.30 Body mass index [BMI] 30.0-30.9, adult
CPT/HCPCS: 27447; 64447; 36415; 73560; 80048; 85025; 86850; 86900; 86901; 97110; 97116; 97161; 97165; 97530; 97535; A9270; C1713; C1776; J0171; J0690; J1100; J1885; J2250; J2270; J2405; J2704; J2795; J3010; J7030; J7120

== ENCOUNTER 2023-01-18 14:30 | Outpatient (RCR) | payer MEDICARE, SELFPAY ==
--- NOTE | 2022-11-23 14:28 | PTOPEVAL1 ---
Assessment and note entered by Dory Chester, PT Evaluation Information Assessment Status Evaluation Diagnosis s/p R TKR Onset 10-30-22 Subjective Information Lynne reports had [facility] PT, ended last week; using the wheeled walker and no issues getting around her home; is doing her bathing and dressing herself, using the tub chair and hand held shower; doing the exercises lying down and sitting x 10 reps; Reported Pain Level Pain Score Self Report Additional Pain Score Comments pain range 2-8/10; R ankle and knee; wearing R ankle brace-have used in past--- lace up due to polio and ankle issues; tight in knee, sometimes kovacs, throbs; R ankle severe discomfort- constant pain, tight; decrease pain with ice, elevate and pain meds--no oxycodone for the past week, take tylenol PRN; prior to TKR, she had valgus of knee and correction was done; Assessment PT Clinical Summary Lynne is s/p R TKR. Prior to surgery, she had knee valgus which was also corrected; PMH includes polio and issues with her R leg from the polio residual weakness. She is motivated and doing her HEP, has completed [facility] PT services. Has not been into her basement at home and is assisting with home tasks. With the evaluation, she has decreased ROM (-5') to 105' and decreased strength of R LE; with the SLR, she tends to ER hip and abduct to lift leg; 2 minute walking test distance of 170' and 5 reps sit/stand test of 26 sec with use of Vignesh UE's; there is edema over knee. Skilled PT services are indicated to increase R knee ROM and strength, transfer, gait and balance skills, with modalities PRN to decrease pain and edema, with education for home exercises. Plan of Care Interventions Electrical Stimulation,Intermittent Compression, Manual Therapy,Neuro Re-education,Patient/ Caregiver Education,Therapeutic Activities, Therapeutic Exercise,Other Other Interventions taping PT Services Indicated Yes Treatment Frequency and 2x/wk for 5 weeks Duration These treatments will address the objective and functional deficits as defined above. The patient will be advanced safely and appropriately in order for the
--- NOTE | 2022-12-28 14:43 | PTOPPROG ---
Assessment and note entered by Dory Chester, PT Evaluation Information Assessment Status Progress Diagnosis s/p R TKR Onset 10-30-22 Subjective Information Lynne reports: walking is better, now using the cane; going between the wheeled walker and the cane with walking; uses her motorized scooter for distances with shopping; feel like R leg is still weak; when walk too long with the cane, back is aggravated; have been down into her basement, is comfortable on the stairs; has difficulty with standing and reaching overhead, lifting, putting something into the cabinet; no falls; have been doing the leg exercises; pain range in the past week of 2-8/10 of R knee, discomfort, aggravating pain; reported standing/ walking tolerance of 20 min, then need to sit down. Assessment PT Clinical Summary Lynne has received 11 PT sessions, s/p R TKR. Compared to the initial evaluation: pain rating is the same at 2-8/10; increase reported walking tolerance to 20 minutes; is using the quad cane for short distances, and wheeled walker for longer distances; she also has increased back pain with walking distances; strength has increased R knee and hip, is able to transfer sit/stand without use of UE's; 5 reps sit/stand time has increased, but initially used both hands and today did not use UE's; 2 minute walk test distance increased by 5', and walking today with quad cane, did use wheeled walker initially; no issues on stairs at home, with one hand railing; she continues to have edema over her knee with the 3 circumferential measurements the same or with in 1 cm less; R knee active ROM in sitting is 0'- 115'; The goals were partially achieved. Continue PT treatment to increase R LE strength, to improve walking and balance skills. With progression of HEP, and modalities to decrease edema. Plan of Care Interventions Electrical Stimulation,Intermittent Compression, Manual Therapy,Neuro Re-education,Patient/ Caregiver Education,Therapeutic Activities, Therapeutic Exercise,Other Other Interventions taping PT Services Indicated Yes
--- NOTE | 2023-01-18 15:11 | PTOPDC ---
Assessment and note entered by Dory Chester, PT Evaluation Information Assessment Status Discharge Diagnosis s/p R TKR Onset 10-30-22 Subjective Information Lynne reports: doing all the exercises, leaving on vacation tomorrow; feel like ready to be finished with therapy; Reported Pain Level Pain Score Self Report Additional Pain Score Comments pain range of 1-6/10; walking tolerance of 30 minutes; decrease pain with sit, ice, rest, ibuprofen PRN; Assessment PT Clinical Summary Lynne has received 17 PT sessions. Compared to the last reeval: pain at low and high ratings is improved: was 2-8/10 and now 1-6/10; reported walking tolerance has improved from 20 to 30 minutes; she is now using the cane with walking, but is having more back pain--discussed with her to use the walker PRN for distances and back pain; 5 reps sit/stand time improved by 15 seconds less; 2 minute walking test distance is 10' more and is using the cane now; edema is about the same with the 3 circumferential measurements within 1 cm; slight increase in strength, but continues to have weakness over R hip and knee; She is indep with her home exercises and safe with mobility and stairs. R knee active ROM in sitting is 0-115'; The goals were partially met. Discharge PT services. Plan of Care PT Services Indicated No
== END 2023-02-06 11:14 | disposition home or self-care (01) ==
LOC: ANHPT 14:30
PROVIDERS: PCP Family Medicine; Visit Provider Orthopaedic Surgery
DX: Z47.1 Aftercare following joint replacement surgery (principal); M17.11 Unilateral primary osteoarthritis, right knee; Z96.651 Presence of right artificial knee joint
CPT/HCPCS: 97016; 97110; 97112; 97116; 97140; 97161; 97530

== ENCOUNTER 2023-01-18 15:21 | Outpatient (CLI) | payer MEDICARE, SELFPAY ==
[2023-01-18 15:43] LABS: Basophils Absolute Auto 0.1 K/mm3 (0.0-0.1); Basophils Percent Auto 0.8 % (0.2-1.2); Eosinophils Absolute Auto 0.3 K/mm3 (0-0.3); Eosinophils Percent Auto 4.4 % (0-4.4); Hematocrit 40.4 % (37.0-47.0); Immature Granulocyte Absolute 0.01 K/mm3 (0.00-0.031); Immature Granulocyte Percent A 0.2 % (0-0.5); Lymphocytes Absolute Auto 1.71 K/mm3 (0.9-3.2); Lymphocytes Percent Auto 25.8 % (18.3-44.2); Mean Corpuscular HGB Conc 32.2 g/dl (32-36); Mean Corpuscular Hemoglobin 28.8 pg (26-34); Mean Corpuscular Volume 89.6 fl (80-100); Mean Platelet Volume 9.7 fl (7.4-10.4); Monocytes Absolute Auto 0.7 K/mm3 (0.1-0.6); Monocytes Percent Auto 11.2 % (2.6-8.5); Neutrophils Absolute Auto 3.8 K/mm3 (1.3-6.7); Neutrophils Percent Auto 57.6 % (45.5-73.1); Platelet Count Result 261 k/mm3 (150-375); Red Blood Count 4.51 M/mm3 (4.2-5.4); Red Cell Distribution Width 14.2 % (11.5-14.5); White Blood Count 6.6 K/mm3 (4.5-10.0)
[2023-01-18 16:42] LABS: Alanine Aminotransferase 23 U/L (6-35); Albumin Level 4.5 g/dL (3.5-5.1); Alkaline Phosphatase 101 U/L (38-126); Anion Gap 8 mmol/L (8-16); Aspartate Amino Transferase 38 U/L (14-36); Bilirubin,Total 0.7 mg/dL (0.2-1.3); Blood Urea Nitrogen 14 mg/dL (7-17); Calcium 9.6 mg/dL (8.4-10.2); Carbon Dioxide 28 mmol/L (22-30); Chloride 102 mmol/L (98-107); Estimated Glomerular Filt Rate > 60; Glucose 91 mg/dL (65-110); Potassium 4.1 mmol/L (3.4-5.0); Sodium 138 mmol/L (137-145)
[2023-01-23 05:53] LABS: CA 15-3 8 U/mL (<32)
== END 2023-01-18 15:22 | disposition home or self-care (01) ==
LOC: ANHLAB 15:23
PROVIDERS: Physician Assistant; PCP Family Medicine; Visit Provider Internal Medicine Hematology & Oncology
DX: C50.412 Malignant neoplasm of upper-outer quadrant of left female breast (principal); Z17.0 Estrogen receptor positive status [ER+]; R53.83 Other fatigue
CPT/HCPCS: 36415; 80053; 85025; 86300

== ENCOUNTER 2023-03-05 14:24 | Outpatient (CLI) | payer MEDICARE, SELFPAY ==
[2023-03-05 16:35] LABS: Appearance Urine Turbid (Clear); Bacteria Urine 4+ /hpf; Bilirubin Urine 1+ (Negative); Blood Urine 3+ (Negative); Color Urine Dark Yellow (Yellow); Glucose Urine UA Negative (Negative); Ketones Urine Trace mg/dL (Negative); Leukocyte Esterase Ur 3+ LEU/UL (Negative); Need Manual Microscopic Reviewed; Nitrate Urine Positive (Negative); Protein Urine 3+ mg/dL (Negative); RBC Urine >100 /hpf (0-2); Specific Grav Ur 1.014 (1.001-1.035); Squamous Epithelial Cell Urine Occasional /hpf (Few); WBC Urine >100 /hpf
[2023-03-05 16:40] LABS: Add Urine Microscopic? YES
== END 2023-03-05 14:25 | disposition home or self-care (01) ==
PROVIDERS: PCP Family Medicine; Visit Provider Nurse Practitioner Gerontology
DX: R30.0 Dysuria (principal)
CPT/HCPCS: 81001; 87077; 87086; 87186

== ENCOUNTER 2023-03-06 00:18 | Observation (INO) | payer MEDICARE, SELFPAY ==
[2023-03-06] VITALS (7 sets, daily range): BP systolic 97–108; BP diastolic 50–74; PULSE 65–117; RESP 15–18; TEMP 36.2–37.3; O2SAT 94–99; BMI 28.8
--- NOTE | ~2023-03-06 | CT_ITS ---
EXAMINATION: CT abdomen pelvis w con DATE: 03/06/2023 03:05 INDICATION: Abnormal liver function tests. Fever. Nausea and vomiting. TECHNIQUE: Computed tomography (CT) of the abdomen and pelvis was performed with 100 mL Omnipaque 350 intravenous contrast. Automated exposure control and iterative reconstruction technique were employe d. The dose-length product was 444.81 mGy-cm. COMPARISON: PET CT 05/06/2018 FINDINGS: The visualized portions of the lung bases demonstrate mild atelectasis. No pleural effusion . The heart size is normal. No pericardial effusion. There is a small sliding hiatal hernia. The live r is normal. There are gallstones in the gallbladder, which is normal in size. The spleen, pancreas, adrenal glands, and right kidney are normal. There is cortical thinning of left kidney. The ureters d emonstrate urothelial thickening and enhancement, consistent with pyelitis. The appendix is not visua lized. There are no dilated loops of bowel. There is calcified atherosclerosis of the aorta and many of the other arteries. The left ovarian vein and left periuterine veins are enlarged, consistent with pelvic venous insufficiency. There is severe lumbar spondylosis. IMPRESSION: 1. Bilateral pyelitis. 2. Small sliding hiatal hernia. 3. Cholelithiasis. No evidence of acute cholecystitis. Reviewed, dictated and finalized at location A.
--- NOTE | ~2023-03-06 | XR_ITS ---
EXAMINATION: XR chest 2V DATE: 03/06/2023 01:44 INDICATION: Sepsis. TECHNIQUE: Frontal and lateral views of the chest were obtained. COMPARISON: Chest single view 08/04/2018, PET CT 05/06/2018 FINDINGS: There are airspace opacities at the lung bases. No pleural effusion or pneumothorax. Cardio megaly is noted. There are surgical clips in left breast and left axilla. IMPRESSION: 1. Mild airspace opacities at the lung bases, consistent with atelectasis/scarring versus pneumonia. 2. Cardiomegaly. Reviewed, dictated and finalized at location A. IMPRESSION: 1. Mild airspace opacities at the lung bases, consistent with atelectasis/scarr ing versus pneumonia. 2. Cardiomegaly.
--- NOTE | ~2023-03-06 | US_ITS ---
EXAMINATION: US abdomen limited DATE: 03/06/2023 10:32 INDICATION: Abnormal liver function tests. TECHNIQUE: Multiple grayscale and Doppler ultrasound images of the abdomen were obtained. COMPARISON: CT abdomen and pelvis 03/06/2023 FINDINGS: The visualized portions of the head, body, and tail of the pancreas are normal. The liver i s normal without focal lesion. There is normal flow in main portal vein. There are gallstones in the gallbladder, which is normal in size. Gallbladder wall thickening is noted. There is no sonographic M urphy sign. The common duct is normal and measures 3 mm. IMPRESSION: 1. Cholelithiasis. Gallbladder wall thickening is likely secondary to chronic cholecystitis. Reviewed, dictated and finalized at location A. IMPRESSION: 1. Cholelithiasis. Gallbladder wall thickening is likely secondary to chronic c holecystitis.
[2023-03-06 00:41] LABS: Basophils Absolute Auto 0.1 K/mm3 (0.0-0.1); Basophils Percent Auto 0.5 % (0.2-1.2); Eosinophils Percent Auto 0.2 % (0-4.4); Hematocrit 40.8 % (37.0-47.0); Hemoglobin 13.3 g/dL (12.0-15.0); Immature Granulocyte Absolute 0.06 K/mm3 (0.00-0.031); Immature Granulocyte Percent A 0.5 % (0-0.5); Lymphocytes Absolute Auto 0.39 K/mm3 (0.9-3.2); Lymphocytes Percent Auto 3.1 % (18.3-44.2); Mean Corpuscular HGB Conc 32.6 g/dl (32-36); Mean Corpuscular Hemoglobin 28.4 pg (26-34); Mean Platelet Volume 10.1 fl (7.4-10.4); Monocytes Absolute Auto 0.3 K/mm3 (0.1-0.6); Neutrophils Absolute Auto 11.9 K/mm3 (1.3-6.7); Neutrophils Percent Auto 93.7 % (45.5-73.1); Platelet Count Result 231 k/mm3 (150-375); Red Blood Count 4.69 M/mm3 (4.2-5.4); Red Cell Distribution Width 15.9 % (11.5-14.5); White Blood Count 12.7 K/mm3 (4.5-10.0)
[2023-03-06 00:59] LABS: Alanine Aminotransferase 71 U/L (6-35); Albumin Level 4.5 g/dL (3.5-5.1); Alkaline Phosphatase 205 U/L (38-126); Anion Gap 11 mmol/L (8-16); Aspartate Amino Transferase 110 U/L (14-36); Bilirubin,Total 2.4 mg/dL (0.2-1.3); Blood Urea Nitrogen 21 mg/dL (7-17); Carbon Dioxide 23 mmol/L (22-30); Chloride 100 mmol/L (98-107); Estimated CRCL calculation 56 ml/min; Estimated Glomerular Filt Rate > 60; Glucose 147 mg/dL (65-110); Potassium 3.5 mmol/L (3.4-5.0); Sodium 134 mmol/L (137-145)
--- NOTE | 2023-03-06 01:19 | ED.GENADULT ---
HPI - General Adult General Chief complaint: Nausea/Vomiting/Diarrhea <Steven Dai PA-C - Last Filed: 03/06/23 03:02> Stated complaint: vomiting, fever, weakness <EWELINA Garcia Last Filed: 03/06/23 03:02> Time Seen by Provider: 03/06/23 01:05 <Steven Dai PA-C - Last Filed: 03/06/23 03:02> Source: patient <EWELINA Garcia Last Filed: 03/06/23 03:02> Mode of arrival: ambulatory <EWELINA Garcia Last Filed: 03/06/23 03:02> Limitations: no limitations <EWELINA Garcia Last Filed: 03/06/23 03:02> History of Present Illness HPI narrative: This is a 77-year-old female who presents to the ED with chief complaint of nausea and vomiting onset just prior to arrival. Patient states she was diagnosed with a UTI by her PCP yesterday. She states she started taking her ciprofloxacin today. Reports 4 episodes of vomiting. She arrives with her family member who is concerned because patient became disoriented at home. Family states that she was confused and was not answering questions correctly and was just not acting like herself. They state she is normally fully oriented, and they do feel that she has returned back to baseline during this interview. Patient denies hematemesis. Denies diarrhea. Patient reports chills but no recorded fevers. Denies any chest pain, shortness of breath, cough, flank pain, back pain. She states she is not having any abdominal pain. No past abdominal surgical hx. <EWELINA Garcia Last Filed: 03/06/23 03:02> Related Data Home medications: Home Medications Medication Instructions Recorded Confirmed multivitamin 1 tablet PO DAILY 08/06/19 01/31/23 anastrozole 1 mg tablet 1 mg PO DAILY 09/08/19 01/31/23 cyanocobalamin (vitamin B-12) 1,000 mcg PO DAILY 09/08/19 01/31/23 1,000 mcg capsule cholecalciferol (vitamin D3) 10 10 mcg PO BID 06/03/20 01/31/23 mcg (400 unit) capsule denosumab 60 mg/mL subcutaneous 60 mg subcut [id number] 05/14/22 01/31/23 syringe (Prolia) hydroxyzine HCl 25 mg tablet 25 mg PO BID PRN Insomnia 10/10/22 01/31/23 <Steven Dai PA-C - Last Filed: 03/06/23 03:02> Allergies/adverse reactions: Allergies Allergy/AdvReac Type Severity Reaction Status Date / Time No Known Allergies Allergy Verified 03/06/23 00:43 <Steven Dai PA-C - Last Filed: 03/06/23 03:02> Review of Systems Review of Systems: CONSTITUTIONAL: Denies fever, chills, or sweats. EYES: Denies visual changes, redness, or discharge. ENT: Denies rhinorrhea, congestion, sore throat, or otalgia. CARDIOVASCULAR: Denies chest pain, palpitations, or edema. RESPIRATORY: Denies cough or dyspnea. GASTROINTESTINAL: See HPI GENITOURINARY: See HPI SKIN: Denies rash or itching. MUSCULOSKELETAL: Denies back pain, joint pain, or myalgia. NEUROLOGIC: See HPI PSYCHIATRIC: Denies anxiety or depression. 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
[2023-03-06 01:23] LABS: Influenza A QL RT-PCR Negative (Negative); Influenza B QL RT-PCR Negative (Negative); SARS-CoV-2 RNA PCR Negative (Negative)
[2023-03-06] MEDS: SODIUM CHLORIDE 0.9% IV 1,000 ML 999 ML IV CONT ×2 (01:29→03:10)
[2023-03-06 01:54] LABS: Lactic Acid Reflex 1.8 mmol/L (0.7-2.0)
[2023-03-06 01:59] LABS: INR 1.1; Prothrombin Time 14.2 Seconds (11.1-14.7)
[2023-03-06 02:09] LABS: CRP 17.7 mg/dL (<1.0)
--- NOTE | 2023-03-06 04:24 | ADMGEN ---
This patient, Lynne Hoskins, was admitted to 2 Medical Room 261-01. Patient/family oriented to hospital policies and general routines including ID bracelet, bed and alarms, visiting hours, pain management, procedures, bathroom and other care routines, personal items, smoking policy, room service/diet, and visiting hours. Information on how to activate the Rapid Response Team has been discussed. Patient/Family are encouraged to report perceived risks to care and to ask questions if they do not understand what they are told or what they should do.
[2023-03-06] MEDS: LACTATED RINGERS 1,000 ML 125 ML IV CONT ×2 (04:55→12:41)
--- NOTE | 2023-03-06 10:39 | PM.CNGS ---
Assessment and Plan Assessment and plan (1) Cholelithiasis: Code(s): K80.20 - Calculus of gallbladder without cholecystitis without obstruction Status: Acute Assessment and Plan: CT evidence of cholelithiasis but no findings to suggest cholecystitis. Labs also revealed slightly elevated LFTs with a total bilirubin of 2.4. She is being treated for a UTI/possible sepsis. She presented with nausea and vomiting, but she felt this was related to oral antibiotics she took at home. No abdominal pain and her abdominal exam is benign today. RUQ US ordered to further evaluate. Monitor labs. If total bilirubin continues to rise, could also consider MRCP to further evaluate. (2) Transaminitis: Code(s): R74.01 - Elevation of levels of liver transaminase levels Status: Acute (3) Acute UTI: Code(s): N39.0 - Urinary tract infection, site not specified Status: Acute Assessment and Plan: Given IV ceftriaxone in the ER. Continue IV antibiotics per Hospitalist. (4) GBS (Guillain [place] syndrome): Code(s): G61.0 - Guillain-[place] syndrome Status: Acute Assessment and Plan: History in 2018 and was treated in [place]. Has done extensive therapy with mild residual muscle weakness. (5) Personal history of poliomyelitis: Onset Date: ~1950 Code(s): Z86.12 - Personal history of poliomyelitis Status: Acute Plan I have discussed the patient's case and plan of care with Dr. Kam. Thank you for allowing us to see the patient in consultation and we will continue to follow along with you. History of Present Illness Consult details Consult date: 03/06/23 Reason for consult: gallstones Requesting physician: Michelle Jasmine MD Narrative: This is a 77-year-old woman with a history of Guillain-barre in 2018, hypertension, hyperlipidemia, and known gallstones. She was brought into the ER by her last night due to confusion and vomiting. She reports developing dysuria 2 days ago. She has an extensive history of urinary tract infections and felt this was similar to those previous symptoms. She called her PCP yesterday and had a urinalysis that suggested UTI. She was prescribed ciprofloxacin and took her first dose at 8:00 pm last night. Within 2 hours of taking that medication, she felt nauseous and vomited. She felt it was related to the antibiotic as she felt otherwise normal prior to taking the medication. She denies any abdominal pain. She went to bed and had generalized weakness and confusion in the middle of the night, therefore her brought her into the ER. Labs showed a WBC count of 12,700, total bilirubin 2.4, AST 110, ALT 71, alk phos 205, CRP 17.7. CT scan of the abdomen and pelvis showed bilateral pyelitis, small sliding hiatal hernia, cholelithiasis without any evidence of cholecystitis. She was admitted to the Hospitalist service. They gave one dose of IV ceftriaxone in the ER. She has a RUQ ultrasound ordered this morning. She is now seen on the medical floor in surgical consultation for cholelithiasis with elevated LFTs. She is oriented x 3 and able to provide all of her history. She denies any current or previous abdominal pain. No post-prandial symptoms in the past. She was aware of her gallstones from workup for her Guillain-barre in [place] about 4-5 years ago. She reports having some previous labs show elevated liver function tests, but in review it is only mildly elevated AST, ALT, and alk phos. Her bilirubin has been normal. Review of Systems Review of Systems: All systems reviewed & are unremarkable except as noted in HPI and below Constitutional: Constitutional: Reports no additional constitutional complaints, Denies chills, Denies fever(s) and Denies night sweats Gastrointestinal: Gastrointestinal: Reports no additional gastrointestinal complaints, Denies abdominal pain, Denies diarrhea, Reports nausea, Reports vomiting and Denies hematemesis Genitourinary: G
--- NOTE | 2023-03-06 16:08 | PM.IMHP ---
H&P: HPI History of Present Illness Date/Time: 03/06/23 16:08 Chief Complaint: ?ED-HPI narrative: ? This is a 77-year-old female who presents to the ED with chief complaint of nausea and vomiting onset just prior to arrival.? Patient states she was diagnosed with a UTI by her PCP yesterday.? She states she started taking her ciprofloxacin today.? Reports 4 episodes of vomiting.? She arrives with her family member who is concerned because patient became disoriented at home.? Family states that she was confused and was not answering questions correctly and was just not acting like herself.? They state she is normally fully oriented, and they do feel that she has returned back to baseline during this interview.? Patient denies hematemesis.? Denies diarrhea.? Patient reports chills but no recorded fevers.? Denies any chest pain, shortness of breath, cough, flank pain, back pain.? She states she is not having any abdominal pain. 77-year-old female presented to emergency department with complaint of abdominal nausea and vomiting after taking Cipro which was prescribed by her primary care for UTI is she was having dysuria, CT scan of abdomen and ultrasound suggest chronic pancreatitis her LFT are mildly elevated patient seen by surgery service patient does not need surgical intervention and recommended to monitor overnight to see patient can tolerate her diet and check her LFT including bilirubin if there is significant change patient may need MRCP and/or ERCP, patient states overall feeling better just had a dinner and denies any nausea or vomiting will continue to monitor. Patient is admitted as observation status. Review of Systems Review of Systems: All systems reviewed & are unremarkable except as noted in HPI and below Constitutional: Constitutional: Reports no additional constitutional complaints, Denies chills, Denies fever(s) and Denies night sweats Gastrointestinal: Gastrointestinal: Reports no additional gastrointestinal complaints, Denies abdominal pain, Denies diarrhea, Reports nausea, Reports vomiting and Denies hematemesis Genitourinary: Genitourinary: Reports no additional female genitourinary complaints, Denies hematuria, Reports dysuria, Denies flank pain, Denies urinary incontinence and Denies urinary urgency PMFSH Past Medical History Medical History Acquired valgus deformity of right ankle Advance care planning Arthritis Arthritis of ankle Degenerative arthritis of right knee Degenerative joint disease, ankle, foot, toe Estrogen receptor positive status (ER+) (~2017) 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[place] H/O poliomyelitis History of hypokalemia (~2018) History of vaginal delivery (~1961) History of vaginal delivery (~1967) Leg weakness, bilateral (~2017) Malignant tumor of breast Negative depression screening 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ly history of elevated blood lipids Family history of cardiovascular disease AAA (abdominal aortic aneurysm, ruptured) Sibling Hypertension Family history of diabetes mellitus in first degree relative Father Family history of osteoarthritis Family history of heart disease in male family member before age 55 Patient's father is Family history of cardiovascular disease Family histor
[2023-03-06] MEDS: CHOLECALCIFEROL 400 UNITS TABLET (VIT D) PO (21:12)
[2023-03-06] MEDS: ACETAMINOPHEN 325 MG TABLET 650 MG PO (21:44)
[2023-03-07 05:20] LABS: Hematocrit 32.5 % (37.0-47.0); Hemoglobin 10.2 g/dL (12.0-15.0); Mean Corpuscular HGB Conc 31.4 g/dl (32-36); Mean Corpuscular Hemoglobin 27.9 pg (26-34); Mean Corpuscular Volume 88.8 fl (80-100); Mean Platelet Volume 10.2 fl (7.4-10.4); Platelet Count Result 183 k/mm3 (150-375); Red Blood Count 3.66 M/mm3 (4.2-5.4); White Blood Count 9.7 K/mm3 (4.5-10.0)
[2023-03-07 05:35] LABS: Alanine Aminotransferase 44 U/L (6-35); Albumin Level 3.2 g/dL (3.5-5.1); Alkaline Phosphatase 135 U/L (38-126); Anion Gap 5 mmol/L (8-16); Aspartate Amino Transferase 43 U/L (14-36); Bilirubin,Total 0.8 mg/dL (0.2-1.3); Blood Urea Nitrogen 10 mg/dL (7-17); Calcium 7.9 mg/dL (8.4-10.2); Carbon Dioxide 27 mmol/L (22-30); Chloride 105 mmol/L (98-107); Estimated CRCL calculation 67 ml/min; Estimated Glomerular Filt Rate > 60; Glucose 119 mg/dL (65-110); Magnesium 2.2 mg/dL (1.6-2.3); Potassium 3.6 mmol/L (3.4-5.0); Sodium 137 mmol/L (137-145)
[2023-03-07 05:45] VITALS: BP 111/49; PULSE 67; RESP 17; TEMP 37.3; O2SAT 96
[2023-03-07] MEDS: MULTIVITAMINS THERAPEUTIC TAB (*BKC) 1 TABLET PO (09:27)
[2023-03-07] MEDS: CHOLECALCIFEROL 400 UNITS TABLET (VIT D) PO (09:27)
[2023-03-07] MEDS: CYANOCOBALAMIN 1,000 MCG TABLET 1000 MCG PO (09:27)
[2023-03-07] MEDS: FLUoxetine HCL 20 MG CAPSULE BY MOUTH (09:27)
[2023-03-07] MEDS: PREGABALIN (*CRX) 75 MG CAPSULE 150 MG PO (09:28)
[2023-03-07] MEDS: ANASTROZOLE (*CHEMO) 1 MG TABLET PO (09:29)
--- NOTE | 2023-03-07 10:02 | PM.DS ---
DS: Admitting Diagnosis Discharge Date 03/07/2023 Admitting Diagnosis Abdominal pain nausea or vomiting DS: Discharge Diagnosis Discharge Diagnosis (1) Cholelithiasis: Code(s): K80.20 - Calculus of gallbladder without cholecystitis without obstruction Status: Acute Assessment and Plan: ?ED-HPI narrative: ? This is a 77-year-old female who presents to the ED with chief complaint of nausea and vomiting onset just prior to arrival.? Patient states she was diagnosed with a UTI by her PCP yesterday.? She states she started taking her ciprofloxacin today.? Reports 4 episodes of vomiting.? She arrives with her family member who is concerned because patient became disoriented at home.? Family states that she was confused and was not answering questions correctly and was just not acting like herself.? They state she is normally fully oriented, and they do feel that she has returned back to baseline during this interview.? Patient denies hematemesis.? Denies diarrhea.? Patient reports chills but no recorded fevers.? Denies any chest pain, shortness of breath, cough, flank pain, back pain.? She states she is not having any abdominal pain. 77-year-old female presented to emergency department with complaint of abdominal nausea and vomiting after taking Cipro which was prescribed by her primary care for UTI is she was having dysuria, CT scan of abdomen and ultrasound suggest chronic pancreatitis her LFT are mildly elevated patient seen by surgery service patient does not need surgical intervention and recommended to monitor overnight to see patient can tolerate her diet and check her LFT including bilirubin if there is significant change patient may need MRCP and/or ERCP, patient states overall feeling better just had a dinner and denies any nausea or vomiting will continue to monitor. (2) Dehydration: Code(s): E86.0 - Dehydration Status: Acute Assessment and Plan: Most likely secondary to poor p.o. intake will gently hydrate the patient and monitor (3) Transaminitis: Code(s): R74.01 - Elevation of levels of liver transaminase levels Status: Acute Assessment and Plan: CT scan and l and abdominal ultrasound showed cholelithiasis and chronic pancreatitis will monitor LFT and further recommendation to follow (4) Acute UTI: Code(s): N39.0 - Urinary tract infection, site not specified Status: Acute Assessment and Plan: Patient with dysuria will follow-up on urine culture and plan DS: Summary Hospital Course Reason for hospitalization: ?This is a 77-year-old female who presents to the ED with chief complaint of nausea and vomiting onset just prior to arrival.? Patient states she was diagnosed with a UTI by her PCP yesterday.? She states she started taking her ciprofloxacin today.? Reports 4 episodes of vomiting.? She arrives with her family member who is concerned because patient became disoriented at home.? Family states that she was confused and was not answering questions correctly and was just not acting like herself.? They state she is normally fully oriented, and they do feel that she has returned back to baseline during this interview.? Patient denies hematemesis.? Denies diarrhea.? Patient reports chills but no recorded fevers.? Denies any chest pain, shortness of breath, cough, flank pain, back pain.? She states she is not having any abdominal pain. Today patient is clinically stable able to tolerate her diet, liver enzyme trending down, patient seen by surgery service will discharge the patient today to follow-up with her primary care, patient urine is growing E coli sensitivities pending however will discharge the patient on cefdinir. Hospital Course: 77-year-old female presented to emergency department with complaint of abdominal nausea and vomiting after taking Cipro which was prescribed by her primary care for UTI is she was having dysuria, CT scan of abdomen and ultrasound sug
--- NOTE | 2023-03-07 10:09 | PM.PNGS ---
Progress Note: A&P Assessment and Plan (1) Cholelithiasis: Code(s): K80.20 - Calculus of gallbladder without cholecystitis without obstruction Status: Acute Assessment and Plan: Cholelithiasis on imaging. LFTs down today with normal bilirubin. Tolerating a regular diet. Abdominal exam benign. No abdominal pain. No more nausea or vomiting since admission. Okay from our standpoint to discharge patient. Follow-up with Dr. Kam as an outpatient to discuss surgical options. (2) Transaminitis: Code(s): R74.01 - Elevation of levels of liver transaminase levels Status: Acute Plan I have discussed the patient's case and plan of care with Dr. Kam. Subjective Subjective Date/Time Seen: 03/07/23 10:09 Patient reports: no new complaints, feels better, tolerating a regular diet and afebrile Interval history: Patient doing well. No new complaints. Tolerating regular diet. No nausea or vomiting. No abdominal pain. Review of Systems Review of Systems: ROS unchanged Exam Const: General: no acute distress and awake Orientation/consciousness: patient oriented x3 GI: Inspection: non-distended GI Palp: Yes Soft to palpation, No Tenderness to palpation present (GI), No Guarding due to palpation present (GI) and No Rebound tenderness present Auscultation: normal bowel sounds Objective Data Vital Signs Vital Signs: Vital Signs - 24 hr 03/06/23 14:00 03/06/23 20:00 03/06/23 21:46 Temperature 98 F 98.7 F Pulse Rate 65 65 74 Respiratory Rate 18 18 18 Blood Pressure 108/56 L 106/50 L Pulse Oximetry 99 99 98 Oxygen Delivery Room Air 03/07/23 05:45 Temperature 99.1 F Pulse Rate 67 Respiratory Rate 17 Blood Pressure 111/49 L Pulse Oximetry 96 Oxygen Delivery Intake/Output Intake/Output: Intake & Output 03/04/23 03/05/23 03/06/23 03/07/23 23:59 23:59 23:59 23:59 Intake Total 4150 500 Output Total 600 400 Balance 3550 100 Meds/Results Medications: Active Medications Generic Name Dose Route Start Last Admin Trade Name Freq PRN Reason Stop Dose Admin Anastrozole 1 mg 03/07/23 09:00 03/07/23 09:29 Anastrozole (*Chemo) 1 Mg Tablet PO 1 mg DAILY RYDER Administration Celecoxib 200 mg 03/06/23 16:12 Celecoxib 200 Mg Capsule BY MOUTH DAILY PRN pain Cyanocobalamin 1,000 mcg 03/07/23 09:00 03/07/23 09:27 Cyanocobalamin 1,000 Mcg Tablet PO 1,000 mcg DAILY RYDER Administration Fluoxetine HCl 20 mg 03/07/23 09:00 03/07/23 09:27 Fluoxetine Hcl 20 Mg Capsule BY MOUTH 20 mg DAILY RYDER Administration Ceftriaxone Sodium 1 gm in 50 mls @ 100 mls/hr 03/06/23 22:00 03/06/23 21:45 Rocephin 1 Gm/Ns 50 Ml IVPB Infused Q24H RYDER Infusion Multivitamins Therapeutic 1 tablet 03/07/23 09:00 03/07/23 09:27 Multivitamins Therapeutic Tab (*Bkc) PO 1 tablet DAILY RYDER Administration Ondansetron HCl 4 mg 03/06/23 03:19 Ondansetron Inj 4 Mg/2 Ml Vial IV PUSH Q4H PRN Nausea Pregabalin 150 mg 03/07/23 09:00 03/07/23 09:28 Pregabalin (*Crx) 75 Mg Capsule PO 150 mg DAILY RYDER Administration Vitamin D 400 units 03/06/23 17:00 03/07/23 09:27 Cholecalciferol 400 Units Tablet (Vit D) PO 400 units BID RYDER Administration Radiology Results: ITS Impressions Chest X-Ray 03/06/23 06:11 IMPRESSION: 1. Mild airspace opacities at the lung bases, consistent with atelectasis/scarring versus pneumonia. 2. Cardiomegaly. Abdomen/Pelvis CT 03/06/23 06:29 IMPRESSION: 1. Bilateral pyelitis. 2. Small sliding hiatal hernia. 3. Cholelithiasis. No evidence of acute cholecystitis. Abdomen Ultrasound 03/06/23 11:04 IMPRESSION: 1. Cholelithiasis. Gallbladder wall thickening is likely secondary to chronic cholecystitis. Labs Labs: Laboratory Results - last 24 hr 03/07/23 05:08 WBC 9.7 RBC 3.66 L Hgb 10.2 L D Hct 32.5 L MCV 88.8 MCH 27.9 MCHC 31.4 L
== END 2023-03-07 10:50 | disposition home or self-care (01) ==
LOC: ANHED 03:32 → ANH2MED 03-07 09:36
PROVIDERS: Physician Assistant; Admitting Provider Internal Medicine; Emergency Provider Emergency Medicine; PCP Family Medicine; Visit Provider Family Medicine
DX: K80.20 Calculus of gallbladder without cholecystitis without obstruction (principal); E86.0 Dehydration; R74.01 Elevation of levels of liver transaminase levels; N39.0 Urinary tract infection, site not specified; N12 Tubulo-interstitial nephritis, not specified as acute or chronic; K44.9 Diaphragmatic hernia without obstruction or gangrene; G61.0 Guillain-Barre syndrome; R50.9 Fever, unspecified; E80.6 Other disorders of bilirubin metabolism; R79.89 Other specified abnormal findings of blood chemistry; Z20.822 Contact with and (suspected) exposure to COVID-19; R00.0 Tachycardia, unspecified; M19.90 Unspecified osteoarthritis, unspecified site; R74.8 Abnormal levels of other serum enzymes; Z92.21 Personal history of antineoplastic chemotherapy; E66.01 Morbid (severe) obesity due to excess calories; Z68.28 Body mass index [BMI] 28.0-28.9, adult; Z85.3 Personal history of malignant neoplasm of breast; Z86.12 Personal history of poliomyelitis; F10.90 Alcohol use, unspecified, uncomplicated; Z79.52 Long term (current) use of systemic steroids; Z79.899 Other long term (current) drug therapy
CPT/HCPCS: 36415; 71046; 74177; 76705; 80053; 83605; 83735; 85025; 85027; 85610; 85730; 86140; 87040; 87636; 96361; 96365; 96366; 99285; A9270; G0378; J0696; J7030; J7120; Q9967

== ENCOUNTER 2023-04-06 08:56 | Inpatient (IN) | payer MEDICARE, SELFPAY ==
[2023-04-06] VITALS (18 sets, daily range): BP systolic 77–144; BP diastolic 48–108; PULSE 65–89; RESP 12–23; TEMP 36.8–37.2; O2SAT 90–99; BMI 30.2
--- NOTE | ~2023-04-06 | CT_ITS ---
EXAMINATION: CT abdomen pelvis w con DATE: 04/06/2023 10:48 INDICATION: Elevated liver function tests. Elevated serum bilirubin. Low back pain. TECHNIQUE: Computed tomography (CT) of the abdomen and pelvis was performed with 100 CC Omnipaque 350 intravenous contrast. Automated exposure control and iterative reconstruction technique were employe d. Exam dose: 570.31 mGy-cm total exam DLP. COMPARISON: 03/02/2023 Limited abdominal ultrasound examination, which reported cholelithiasis, gallbl adder wall thickening 03/02/2023 CT abdomen pelvis FINDINGS: Mild bilateral lower lobe predominantly dependent atelectasis. Cardiomegaly. No pericardial or pleural effusion. Multiple gallstones are noted in addition to mild gallbladder wall thickening. No hepatic space-occupying mass lesion is detected. Hepatic steatosis. Splenic size is within normal range. No pancreatic mass lesion or calcification. No bile duct or pancreatic duct dilatation. Normal morphology of the adrenal glands. Small nonobstructing upper pole left renal calculus. No other urinary tract calculus or hydroureteron ephrosis is evident. There is subtle diminished sharpness of the interface between the cortex and medulla of the left kidn ey compared to the right side, with mild patchy diminished enhancement of the cortex of the left kidn ey compared to the right. Consider left pyelonephritis. Correlation with urinalysis is recommended. The urinary bladder wall is mildly thickened. Uterus and adnexal areas are unremarkable except for as ymmetrically prominent left adnexal veins. Atherosclerotic calcification but normal caliber of the abdominal aorta. No intraperitoneal or retrop eritoneal or pelvic mass lesion or adenopathy or ascites. Diverticulosis of the colon; no significant diverticulitis. Normal appendix. No bowel obstruction or intraperitoneal free air. Degenerative changes of the lumbar spine, described on 04/02/2023 CDT lumbar spine examination. No suspicious osteolytic or osteoblastic lesions are noted. IMPRESSION: Subtle changes of left kidney suggesting possible pyelonephritis; recommend clinical cor relation and urinalysis Hepatic steatosis Cholelithiasis, mild gallbladder wall thickening Diverticulosis of the colon; no evidence of diverticulitis Normal appendix Asymmetrically prominent left adnexal veins Reviewed, dictated and finalized at [facility]. Reviewed, dictated and finalized at [facility]. IMPRESSION: Subtle changes of left kidney suggesting possible pyelonephritis; recommend clinical correlation and urinalysis Hepatic steatosis Cholelithiasis, mild gallbladder wall thickening Diverticulosis of the colon; no evidence of diverticulitis Normal appendix Asymmetrically prominent left adnexal veins
--- NOTE | ~2023-04-06 | MR_ITS ---
EXAMINATION: MR MRCP wo/w con/w 3D wo ind DATE: 04/08/2023 14:22 INDICATION: Elevated liver enzymes, cholelithiasis TECHNIQUE: Magnetic resonance imaging (MRI) of the abdomen was performed without and with intravenous contrast. Sequences included coronal T2-weighted SS-FSE ARC, coronal T2-weighted FS SS-FSE, coronal T2-weighted 2D FS FIESTA, Water:Coronal LAVA-Flex, sagittal T2-weighted SS-FSE ARC, axial SSFSE ARC, axial 3D DualEcho, axial DWI B=600, axial T1-weighted LAVA, FAT:Coronal LAVA-Flex, and coronal in and opposed phase LAVA-Flex. Thick-slab T2-weighted FRFSE-XL images were obtained for magnetic resonance cholangiopancreatography (MRCP). Maximum intensity projection 3-D reconstructions of the volumetric data were created by the technologist. Postcontrast sequences included a time course of axial T1-weig hted LAVA, FAT:Coronal LAVA-Flex, coronal in and opposed phase LAVA-Flex, and Water:Coronal LAVA-Flex . COMPARISON: CT, 04/06/2023 CONTRAST: Multihance, 14 cc FINDINGS: ABDOMEN MRI: The liver, spleen, pancreas, and adrenal glands are normal. Stones are present in the ga llbladder. There are small pleural effusions. The kidneys are unremarkable. There are no pathological ly enlarged abdominal lymph nodes. There is discitis with abnormal enhancement at L1-2 which results in a small right psoas abscess. There is mild enhancement of the adjacent L1 and L2 vertebral bodies. There are no dilated loops of bowel. ABDOMEN MRCP: There is no intrahepatic or extrahepatic biliary dilatation. No stones or stricture of the common bile duct. The pancreatic duct is normal in course and caliber. IMPRESSION: 1. Discitis at L1 to with a small adjacent abscess of the right psoas muscle. 2. Mild enhancement of the L1 and L2 vertebral bodies which may be reactive, degenerative, or reflect osteomyelitis. 3. Cholelithiasis. Reviewed, dictated and finalized at location [] IMPRESSION: 1. Discitis at L1 to with a small adjacent abscess of the right psoas muscle. 2. Mild enhancement of the L1 and L2 vertebral bodies which may be reactive, de generative, or reflect osteomyelitis. 3. Cholelithiasis.
--- NOTE | ~2023-04-06 | CT_ITS ---
EXAMINATION: CT lumbar spine wo con DATE: 04/06/2023 10:08 INDICATION: Low back pain TECHNIQUE: Computed tomography (CT) of the lumbar spine was performed without intravenous contrast. A utomated exposure control and iterative reconstruction technique were employed. Exam dose: 591.83 mG y-cm total exam DLP. COMPARISON: 05/31/2021 lumbar spine FINDINGS: There is mild lumbar dextroscoliosis. Again noted is very severe degenerative disc disease at L1-2 with associated approximately 4.5 mm ret rolisthesis. The remaining lumbar and lumbosacral interspaces are relatively preserved. There is degenerative change at the apophyseal joints throughout the lumbar spine with associated mil d grade 1 anterolisthesis at L4-5. No fracture or bone destruction is evident. No primary lumbar spinal stenosis.. The sacroiliac joints are intact, with mild osteoarthritic change. IMPRESSION: Severe degenerative disc disease and 4.5 mm retrolisthesis at L1-2 Grade 1 anterolisthesis at L4-5 Reviewed, dictated and finalized at [facility]. Reviewed, dictated and finalized at [facility].
--- NOTE | ~2023-04-06 | MR_ITS ---
EXAMINATION: MR lumbar spine wo/w con DATE: 04/10/2023 14:04 INDICATION: L1-L2 discitis TECHNIQUE: Magnetic resonance imaging (MRI) of the lumbar spine was performed without and with 14 mL Multihance intravenous contrast. Sequences included sagittal T2-weighted FSE, sagittal T2-weighted FS FSE, and sagittal and axial T1-weighted FSE. Postcontrast sequences included axial T2-weighted FSE, sagittal T1-weighted FSE, and axial and sagittal T1-weighted FS FSE. COMPARISON: CT dated 04/06/2023 and MRCP dated 04/08/2023 FINDINGS: 5 mm retrolisthesis L1 on L2 and 1-2 mm anterolisthesis L4 on L5 and L5 on S1. There is fluid signal throughout the moderately narrowed L1-L2 disc space along with irregular endplate margins and sub end plate marrow edema, enhancement and decreased T1 fat signal at both levels consistent with discitis a nd likely early associated osteomyelitis. There is reactive edema and enhancement in the soft tissues surrounding the disc space. There is peripheral enhancement of a centrally T2 hyperintense intramusc ular abscess which extends proximally 7.7 similar caudally from the disc space within the right psoas muscle. The abscess measures up to 9 x 4 mm in maximal transaxial dimensions. Remaining vertebral chely dy heights are normal. No other pathologic marrow replacing process. Mild disc height loss at L4-L5 a nd L5-S1. The conus medullaris terminates at L1-L2. There is normal signal in the caudal spinal cord. The following disc levels are specifically discussed: T12-L1: Disc is mildly bulging. There is mild bilateral facet joint osteoarthritis. There is no neura l foraminal stenosis. There is no central canal stenosis. L1-L2: Diffuse bulge of the fluid-filled disc space. There is moderate bilateral facet joint osteoart hritis. There is moderate left and moderate to severe right neural foraminal stenosis. There is mild central canal stenosis. L2-L3: Disc is bulging with superimposed right subarticular zone annular fissure and disc extrusion w ith disc material extending a few millimeters cephalad to the level of the inferior endplate of L2. T here is mild to moderate bilateral facet joint osteoarthritis. There is mild left and moderate right neural foraminal stenosis. There is mild central canal stenosis. L3-L4: Disc is bulging. There is moderate right and severe left facet joint osteoarthritis. There is mild to moderate bilateral neural foraminal stenosis. There is mild central canal stenosis. L4-L5: Disc is bulging. There is severe bilateral facet joint osteoarthritis. There is mild bilateral neural foraminal stenosis. There is mild central canal stenosis. L5-S1: Disc is mildly bulging. There is severe bilateral facet joint osteoarthritis. There is no neur al foraminal stenosis. There is no central canal stenosis. IMPRESSION: 1. L1-L2 discitis with associated early osteomyelitis involving the adjacent L1 and L2 vertebral bodi es. 2. Secondary small right psoas muscle abscess. 3. Otherwise mild lumbar and lower thoracic spondylosis. Reviewed, dictated and finalized at location A. IMPRESSION: 1. L1-L2 discitis with associated early osteomyelitis involving the adjacent L1 and L2 vertebral bodies. 2. Secondary small right psoas muscle abscess. 3. Otherwise mild lumbar and lower thoracic spondylosis.
--- NOTE | ~2023-04-06 | XR_ITS ---
Portable chest x-ray Comparison: 03/06/2023 Clinical History: Shortness of breath Findings: There is significant interval worsening of diffuse interstitial prominence and mild hazine ss in the lungs as compared to prior exam. No pleural effusion or pneumothorax. Cardiomediastinal si lhouette is stable. Bones and soft tissues are unremarkable. Impression: Significant worsening of diffuse interstitial pattern of the lungs, with minimal haziness. Findings l ikely represent extensive interstitial pulmonary edema. Correlate for atypical infection. Reviewed, dictated and finalized at location M. Impression: Significant worsening of diffuse interstitial pattern of the lungs, with minima l haziness. Findings likely represent extensive interstitial pulmonary edema. C orrelate for atypical infection.
--- NOTE | 2023-04-06 09:20 | ED.BACK ---
HPI - Back Pain/Injury General Chief Complaint: Back Pain/Injury Stated Complaint: CHRONIC BACK PAIN Time Seen by Provider: 04/06/23 09:01 History of Present Illness HPI Narrative: 77-year-old female presents to the emergency room today for severe low back pain that started about 3 to 4 days ago. She says it is more on the right side but starting to be on her left side as well. She is having a lot of difficulty with bearing weight and has not been able to ambulate for the past 3 days. She normally can ambulate with a cane. 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 She says that the reason she cannot bear weight or walk is due to the severe low back pain. She has a history of chronic back pain but says that she had not had any problems with back pain for a while prior to this starting. She denies any numbness or tingling to her lower extremities. She denies having muscle weakness to her lower extremities. She got a cortisone shot by her primary care on . She says that this did help but did not last long. She has been taking oxycodone which has also not been helping very much either. No fever but she has had hot and cold spells. She was seen in our ER in February for urinary tract infection. She denies history of recurrent UTIs. Blood pressure noted to be low on initial evaluation. Related Data Home Medications Medication Instructions Recorded Confirmed multivitamin 1 tablet PO DAILY 08/06/19 04/04/23 anastrozole 1 mg tablet 1 mg PO DAILY 09/08/19 04/04/23 cyanocobalamin (vitamin B-12) 1,000 mcg PO DAILY 09/08/19 04/04/23 1,000 mcg capsule cholecalciferol (vitamin D3) 10 10 mcg PO BID 06/03/20 04/04/23 mcg (400 unit) capsule denosumab 60 mg/mL subcutaneous 60 mg subcut [id number] 05/14/22 04/04/23 syringe (Prolia) fluoxetine 20 mg capsule (Prozac) See Rx Instructions .Route .COMPLEX 03/06/23 04/04/23 hydrocortisone 2.5 % topical cream 1 applic topical BID PRN Rash 03/06/23 04/04/23 Allergies Allergy/AdvReac Type Severity Reaction Status Date / Time No Known Allergies Allergy Verified 04/06/23 09:13 Review of Systems Review of Systems: CONSTITUTIONAL: Denies fever, having hot and cold flashes EYES: Denies visual changes, redness, or discharge. ENT: Denies rhinorrhea, congestion, sore throat, or otalgia. CARDIOVASCULAR: Denies chest pain, palpitations, or edema. RESPIRATORY: Denies cough or dyspnea. GASTROINTESTINAL: Denies abdominal pain, nausea, vomiting, or diarrhea. Having some constipation GENITOURINARY: Denies dysuria or hematuria. SKIN: Denies rash or itching. MUSCULOSKELETAL: as per HPI NEUROLOGIC: Denies headache, numbness, dizziness, or weakness. PSYCHIATRIC: Denies anxiety or depression. 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-[place] H/O poliomyelitis History of hypokalemia (~2018) History of vaginal delivery (~1961) History of vaginal delivery (~1967) Leg weakness, bilateral (~2017) Malignant tumor of breast Negative depression screening 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 S/P chemotherapy, time since greater than 12 weeks (~2018) 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
[2023-04-06] MEDS: ACETAMINOPHEN 325 MG TABLET 650 MG PO ×2 (09:39→23:10)
[2023-04-06] MEDS: SODIUM CHLORIDE 0.9% IV 1,000 ML 999 ML IV CONT ×2 (09:46→11:38)
[2023-04-06 09:59] LABS: Hematocrit 34.9 % (37.0-47.0); Hemoglobin 11.2 g/dL (12.0-15.0); Mean Corpuscular HGB Conc 32.1 g/dl (32-36); Mean Corpuscular Hemoglobin 28.4 pg (26-34); Mean Corpuscular Volume 88.4 fl (80-100); Mean Platelet Volume 11.2 fl (7.4-10.4); Platelet Count Result 145 k/mm3 (150-375); Red Blood Count 3.95 M/mm3 (4.2-5.4); Red Cell Distribution Width 15.5 % (11.5-14.5); White Blood Count 11.5 K/mm3 (4.5-10.0)
[2023-04-06 10:11] LABS: Alanine Aminotransferase 54 U/L (6-35); Albumin Level 3.5 g/dL (3.5-5.1); Alkaline Phosphatase 311 U/L (38-126); Anion Gap 10 mmol/L (8-16); Aspartate Amino Transferase 73 U/L (14-36); Bilirubin,Total 3.2 mg/dL (0.2-1.3); Blood Urea Nitrogen 34 mg/dL (7-17); Calcium 8.9 mg/dL (8.4-10.2); Carbon Dioxide 22 mmol/L (22-30); Chloride 99 mmol/L (98-107); Estimated CRCL calculation 34 ml/min; Estimated Glomerular Filt Rate 54; Glucose 139 mg/dL (65-110); Potassium 3.6 mmol/L (3.4-5.0); Sodium 131 mmol/L (137-145)
[2023-04-06 10:12] LABS: Appearance Urine Cloudy (Clear); Bacteria Urine 4+ /hpf; Bilirubin Urine 1+ (Negative); Blood Urine 2+ (Negative); Color Urine Dark Yellow (Yellow); Glucose Urine UA Negative (Negative); Ketones Urine Negative (Negative); Leukocyte Esterase Ur 2+ LEU/UL (Negative); Need Manual Microscopic Reviewed; Nitrate Urine Negative (Negative); Protein Urine 2+ mg/dL (Negative); RBC Urine 0-2 /hpf (0-2); Specific Grav Ur 1.015 (1.001-1.035); Squamous Epithelial Cell Urine None seen /hpf (Few); WBC Urine 51-100 /hpf; pH Urine 5.5 (5.0-9.0)
[2023-04-06 10:18] LABS: Creatine Kinase 53 U/L (30-135)
[2023-04-06 10:27] LABS: Add Urine Microscopic? YES
[2023-04-06 10:31] LABS: Atypical Lymphocytes Present; Band Neutrophils Percent 13 % (0-6); Lymphocytes Absolute Manual 0.69 K/mm3 (1.1-4.5); Monocytes Absolute Manual 0.46 K/mm3 (0.1-0.90); Monocytes Percent Manual 4 % (3-9); Neutrophils Absolute Manual 10.35 K/mm3 (1.7-7.2); Neutrophils Percent Manual 77 % (46-73); Nucleated Red Blood Cells 1 %; Platelet Estimate Adequate (Adequate); Schistocytes None Seen (NORMAL); Total Cells Counted 100
[2023-04-06 11:01] LABS: Erythrocyte Sedimentation Rate 84 mm/hr (0-20)
[2023-04-06 11:20] LABS: CRP 38.3 mg/dL (<1.0)
[2023-04-06] MEDS: HYDROCORTISONE SODIUM SUCCINATE 100 MG/2 ML VIAL IV PUSH (11:55)
--- NOTE | 2023-04-06 13:43 | PM.IMHP ---
H&P: HPI History of Present Illness Date/Time: 04/06/23 13:43 Chief Complaint: Back pain Narrative: This is a 77-year-old female patient who has tree of Guillain-[place]. She currently walks with a cane. The patient came into the emergency room today for complaints of severe lower back pain that started 3-4 days ago. She stated it is more on the right side than on the left. The patient has difficulty ambulating with her cane and has not been able to ambulate for the past 3 days to the pain. The patient has lower extremity weakness due to the Guillain- [place]. She denied any numbness or tingling to her lower extremities. The patient received her normal cortisone shot by her primary care doctor this past . She stated it did not help and it did not last long. She has had no fever chills. Her white count is noted to be 11.5. H&H is 11.2 and 34.9. Her sodium is 131. Her glucose is 139. Total bilirubin 3.2, AST 73, ALT 54, and alkaline phosphatase 311. C reactive protein 38.3. Urine is cloudy 2+ protein 2+ blood 1+ urine bilirubin leukocyte esterase 2+ urine WBC 51-100. 4+ bacteria. On 03/05/2023 the patient was found to have ESBL. The patient was given Tylenol, Rocephin, 4 L of normal saline, and meropenem. Her blood pressure did get down to 77/53. She was given the IV fluids and her blood pressure initially did not change. I placed a central line to the right femoral area in the emergency room. The patient was accepted into ICU as the weave room supervisor was consulted. The patient is being admitted to inpatient status on the date of service of 04/06/2023. Review of Systems Review of Systems: All systems reviewed & are unremarkable except as noted in HPI and below Constitutional: Constitutional: Reports as per HPI and Reports no additional constitutional complaints Eyes: Eyes: Reports as per HPI and Reports no additional eye complaints ENT: Reports system reviewed and no additional complaints, except as documented and Reports Normal hearing present Cardiovascular: Cardiovascular: Reports no additional cardiovascular complaints Respiratory: Respiratory: Reports no additional respiratory complaints and Reports no additional respiratory complaints Gastrointestinal: Gastrointestinal: Reports as per HPI and Reports no additional gastrointestinal complaints Musculoskeletal: Musculoskeletal: Reports no additional musculoskeletal complaints Integumentary/Breasts: Skin/Breast: Reports system reviewed and no additional complaints, except as docu and Reports as per HPI Neurologic: Reports system reviewed and no additional complaints, except as documented, Reports as per HPI and Reports Normal hearing present Psychiatric: Psychiatric: Reports no additional psychiatric complaints and Reports as per HPI Endocrine: Endocrine: Reports no additional endocrine complaints Hematologic/Lymphatic: Hematologic/Lymphatic: Reports no additional hematologic/lymphatic complaints Allergic/Immunologic: Allergic/Immunologic: Reports no additional allergic/immunologic complaints [facility] Past Medical History Medical History Acquired valgus deformity of right ankle Advance care planning Arthritis Arthritis of ankle Degenerative arthritis of right knee Degenerative joint disease, ankle, foot, toe Estrogen receptor positive status (ER+) (~2017) 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
[2023-04-06] MEDS: NOREPINEPHRINE 8 MG/D5W 250 ML 8 MG/250 ML BAG 9.38 MG IV CONT (14:45)
[2023-04-06] MEDS: MEROPENEM 1 GM in SODIUM CHLORIDE 0.9% IV 100 ML 200 ML IVPB ×2 (15:07→22:03)
[2023-04-06] MEDS: NOREPINEPHRINE 8 MG/D5W 250 ML 8 MG/250 ML BAG 5.63 MG IV CONT (15:27)
--- NOTE | 2023-04-06 15:27 | ADMGEN ---
This patient, Lynne Hoskins, was admitted to Intensive Care Unit-7 at 1522. Patient/family oriented to hospital policies and general routines including ID bracelet, bed and alarms, visiting hours, pain management, procedures, bathroom and other care routines, personal items, smoking policy, room service/diet, and visiting hours. Information on how to activate the Rapid Response Team has been discussed. Patient/Family are encouraged to report perceived risks to care and to ask questions if they do not understand what they are told or what they should do.
--- NOTE | 2023-04-06 16:04 | WPDPROCEDUR ---
Procedures Central Line Placement Right Femoral: Central Line Date: 04/06/23 Central Line Time: 13:20 Discussed w/ the patient/family/POA,the placement of a central venous catheter, including its clinical necessity/indication & associated potential risks, benifits and alternatives.: Yes The patient/family/POA understand(s) and acknowledge(s) the need to proceed with central venous catheter insertion as an important element of the patient's clinical management.: Yes Consent: I have discussed with the patient and/or surrogate, the non-emergent placement of a central venous catheter, including its clinical necessity/indication and associated potential risks and complications. The patient and/or surrogate understand(s) and acknowledge(s) the need to proceed with central venous catheter insertion as an important element of the patient's clinical management. Time Out Performed: Yes Patient Position: supine Patient placed on monitor/pulse ox: Yes Provider Prep: Max. sterile barrier precautions Central line prep: 2% Chlorhexidine scrub Local anesthesia used: lidocaine 1% Amount of anesthesia used (ml): 6 Sterile US Technique with sterile gel/sterile probe covers: Yes Turkish: 7 Length (cm): 16 Depth of Insertion (cm): 16 Post Procedure: sutured in place, good blood return, all ports aspirated, flushed, capped, transparent dressing and antimicrobial product Additional comments: No x-ray needed as it is in the right femoral area
[2023-04-06] MEDS: SODIUM CHLORIDE 0.9% IV 1,000 ML 125 ML IV CONT (16:09)
[2023-04-06] MEDS: CENTRAL LINE FLUSH 10 ML IV PUSH ×2 (17:23→22:03)
[2023-04-06] MEDS: CHOLECALCIFEROL 400 UNITS TABLET (VIT D) PO (17:23)
[2023-04-07] VITALS (23 sets, daily range): BP systolic 84–141; BP diastolic 47–87; PULSE 29–96; RESP 19–32; TEMP 36.4–36.9; O2SAT 91–99
[2023-04-07] MEDS: SODIUM CHLORIDE 0.9% IV 1,000 ML 125 ML IV CONT (00:54)
[2023-04-07 05:24] LABS: Basophils Absolute Auto 0.1 K/mm3 (0.0-0.1); Basophils Percent Auto 0.7 % (0.2-1.2); Eosinophils Percent Auto 0.1 % (0-4.4); Hematocrit 31.3 % (37.0-47.0); Immature Granulocyte Absolute 0.09 K/mm3 (0.00-0.031); Immature Granulocyte Percent A 0.9 % (0-0.5); Lymphocytes Absolute Auto 0.44 K/mm3 (0.9-3.2); Lymphocytes Percent Auto 4.3 % (18.3-44.2); Mean Corpuscular HGB Conc 31.9 g/dl (32-36); Mean Corpuscular Hemoglobin 28.4 pg (26-34); Mean Corpuscular Volume 88.9 fl (80-100); Mean Platelet Volume 11.1 fl (7.4-10.4); Monocytes Absolute Auto 0.2 K/mm3 (0.1-0.6); Neutrophils Absolute Auto 9.4 K/mm3 (1.3-6.7); Platelet Count Result 147 k/mm3 (150-375); Red Blood Count 3.52 M/mm3 (4.2-5.4); Red Cell Distribution Width 15.9 % (11.5-14.5); White Blood Count 10.2 K/mm3 (4.5-10.0)
[2023-04-07] MEDS: ACETAMINOPHEN 325 MG TABLET 650 MG PO ×2 (05:24→15:57)
[2023-04-07] MEDS: CENTRAL LINE FLUSH 10 ML IV PUSH ×4 (05:30→20:29)
[2023-04-07 05:38] LABS: Alanine Aminotransferase 38 U/L (6-35); Albumin Level 2.9 g/dL (3.5-5.1); Alkaline Phosphatase 264 U/L (38-126); Anion Gap 6 mmol/L (8-16); Aspartate Amino Transferase 39 U/L (14-36); Blood Urea Nitrogen 20 mg/dL (7-17); Calcium 7.7 mg/dL (8.4-10.2); Carbon Dioxide 20 mmol/L (22-30); Chloride 109 mmol/L (98-107); Estimated CRCL calculation 61 ml/min; Estimated Glomerular Filt Rate > 60; Glucose 153 mg/dL (65-110); Potassium 2.9 mmol/L (3.4-5.0); Sodium 135 mmol/L (137-145)
[2023-04-07] MEDS: ENOXAPARIN 40 MG/0.4 ML SYRINGE SUB-Q (07:57)
[2023-04-07] MEDS: DOCUSATE SODIUM 100 MG CAPSULE PO (07:57)
[2023-04-07] MEDS: ANASTROZOLE (*CHEMO) 1 MG TABLET PO (07:57)
[2023-04-07] MEDS: FLUoxetine HCL 20 MG CAPSULE BY MOUTH (07:58)
[2023-04-07] MEDS: CYANOCOBALAMIN 1,000 MCG TABLET 1000 MCG PO (07:58)
[2023-04-07] MEDS: MEROPENEM 1 GM in SODIUM CHLORIDE 0.9% IV 100 ML 200 ML IVPB ×2 (07:58→20:29)
[2023-04-07] MEDS: CHOLECALCIFEROL 400 UNITS TABLET (VIT D) PO ×2 (07:58→17:38)
[2023-04-07] MEDS: KCL 40 MEQ/WATER 100 ML 100 ML 25 ML IVPB (08:27)
[2023-04-07] MEDS: CALCIUM GLUC 2,000 MG/NS 100ML 2,000 MG/100 ML BAG 100 MG IVPB (08:27)
[2023-04-07] MEDS: KCL 20 MEQ/0.45% NS 1,000 ML 50 ML IV CONT (08:27)
[2023-04-07] MEDS: POTASSIUM CHLORIDE 20 MEQ ER TABLET 40 MEQ PO (08:28)
--- NOTE | 2023-04-07 08:54 | WPDCNINT ---
Assessment and Plan Assessment and plan (1) Septic shock: Code(s): A41.9 - Sepsis, unspecified organism; R65.21 - Severe sepsis with septic shock Status: Acute Assessment and Plan: Patient presented with picture consistent with sepsis secondary to UTI pyelonephritis and possible cholecystitis Blood and urine cultures have been sent and pending. She has history of ESBL CT abdomen and pelvis does not show any renal stones or hydronephrosis CT does show gallstones with gallbladder wall thickening although patient does not have any tenderness on exam in right upper quadrant Patient was given IV fluids bolus and is on infusion which will be continued but I will decrease the rate Continue Levophed titration to maintain map At 25% albumin Check procalcitonin level Check echo (2) Acute bacterial pyelonephritis: Code(s): N10 - Acute pyelonephritis; B96.89 - Other specified bacterial agents as the cause of diseases classified elsewhere Status: Acute Assessment and Plan: See above (3) Cholelithiasis: Qualifiers: Biliary obstruction: without biliary obstruction Cholecystitis presence: without cholecystitis Cholelithiasis location: gallbladder Qualified Code(s): K80.20 - Calculus of gallbladder without cholecystitis without obstruction Code(s): K80.20 - Calculus of gallbladder without cholecystitis without obstruction Status: Acute Assessment and Plan: CT scan shows gallstones which patient was aware of for last 4 years but now has elevated liver enzyme MRCP is ordered to evaluate biliary tree Will consult GI or sternal surgery depending on findings (4) Elevated liver enzymes: Code(s): R74.8 - Abnormal levels of other serum enzymes Status: Acute Assessment and Plan: See above (5) Other spondylosis with radiculopathy, lumbosacral region: Code(s): M47.27 - Other spondylosis with radiculopathy, lumbosacral region Status: Acute Assessment and Plan: Patient has chronic back pain and CT scan shows severe degenerative joint disease Patient states the pain is improved Continue pain control Will consult PT once patient is off of vasopressors Plan DVT prophylaxis -Lovenox Nutrition -diet ordered Code Status - Full Code Total Critical Care Time - 35 minutes Due to a high probability of clinically significant, life threatening deterioration, the patient required my highest level of preparedness to intervene emergently and I personally spent this critical care time directly and personally managing the patient. This critical care time included obtaining a history; examining the patient; pulse oximetry; ordering and review of studies; arranging urgent treatment with development of a management plan; evaluation of patient's response to treatment; frequent reassessment; and discussions with other providers. It was exclusive of separately billable procedures and treating other patients and teaching time. Please see Assessment and Plan section and the rest of the note for further information on patient assessment and treatment Exhibit Display Representative Consult Note Consult date: 04/07/23 Reason for consult: Septic shock HPI: Lynne Hoskins is a 77 year old female with past medical history of polio in childhood, GBS 4 years ago, breast cancer, chronic back pain, recent history of UTI with ESBL E coli presented yesterday with chief complaint of severe back pain for last few days, patient states that she always has chronic back pain. Since her bout of GBS she has had weakness in her right lower extremity. She uses cane to walk. Chronic back pain sometimes extends to her right like. 3-4 days ago patient states her pain got worse and became 10/10 intermittently. She denies any loss of bowel or bladder. Denies any change in sensation or in her legs. Pain was worse with movement and walking she states that she could not take it and went to her physician gave her a i
--- NOTE | 2023-04-07 09:48 | PM.IMPN ---
Progress Note: A&P Assessment and Plan (1) Septic shock: Code(s): A41.9 - Sepsis, unspecified organism; R65.21 - Severe sepsis with septic shock Status: Acute Assessment and Plan: Patient presented with picture consistent with sepsis secondary to UTI pyelonephritis and possible cholecystitis Blood and urine cultures pending She has history of ESBL CT abdomen and pelvis does not show any renal stones or hydronephrosis CT does show gallstones with gallbladder wall thickening although patient does not have any tenderness on exam in right upper quadrant Patient was given IV fluids bolus and is on infusion which will be continued but I will decrease the rate Continue Levophed Continue Meropenem 04/07 25% albumin Echo pending (2) Acute bacterial pyelonephritis: Code(s): N10 - Acute pyelonephritis; B96.89 - Other specified bacterial agents as the cause of diseases classified elsewhere Status: Acute Assessment and Plan: See above (3) Cholelithiasis: Qualifiers: Biliary obstruction: without biliary obstruction Cholecystitis presence: without cholecystitis Cholelithiasis location: gallbladder Qualified Code(s): K80.20 - Calculus of gallbladder without cholecystitis without obstruction Code(s): K80.20 - Calculus of gallbladder without cholecystitis without obstruction Status: Acute Assessment and Plan: CT scan shows gallstones which patient was aware of for last 4 years but now has elevated liver enzyme 04/07 MRCP pending (4) Elevated liver enzymes: Code(s): R74.8 - Abnormal levels of other serum enzymes Status: Acute Assessment and Plan: Shock liver vs biliary pathology (5) Other spondylosis with radiculopathy, lumbosacral region: Code(s): M47.27 - Other spondylosis with radiculopathy, lumbosacral region Status: Acute Assessment and Plan: Patient has chronic back pain and CT scan shows severe degenerative joint disease 04/07 Pain improved Continue pain control Subjective Date/time seen: 04/07/23 09:48 Interval history: Admitted 04/06 with back pain, possible pyelonephritis. Hx ESBL e coli UTI. ABNL LFT's. Back feeling much better today. No cp or sob. No dysuria. No heme. Bowels moved. No abd pain. Review of Systems Review of Systems: All systems reviewed & are unremarkable except as noted in HPI and below Exam Narrative: General: Pt is alert awake and in NAD Lungs/Chest: Clear BS B/L, No crackles or wheezing. Cardiac: RRR. Normal S1 S2. No murmurs Circulation: Pedal pulses are intact and symmetrical. Abdomen: Normal bowel sounds.. Soft. Nontender. Extremities: No clubbing, cyanosis or edema. Warm right femoral central venous catheter : Mora in place Neurologic: Follows commands. CN symmetric to inspection. Tone and strength symmetric. Objective Data Vital Signs Vital Signs: Vital Signs - 24 hr 04/06/23 11:12 04/06/23 12:21 04/06/23 13:55 Temperature Pulse Rate 75 72 71 Respiratory Rate 15 12 12 Blood Pressure 80/51 L 85/50 L 77/53 L Pulse Oximetry 94 95 90 Oxygen Delivery 04/06/23 14:43 04/06/23 14:45 04/06/23 15:11 Temperature Pulse Rate 67 66 68 Respiratory Rate 12 21 H Blood Pressure 86/50 L 79/53 L 144/75 H Pulse Oximetry 92 92 Oxygen Delivery 04/06/23 15:11 04/06/23 15:27 04/06/23 15:46 Temperature Pulse Rate 65 80 79 Respiratory Rate 18 Blood Pressure 144/75 H 121/108 H 134/65 Pulse Oximetry 99 Oxygen Delivery 04/06/23 16:00 04/06/23 16:00 04/06/23 16:00 Temperature 98.7 F Pulse Rate 76 75 76 Respiratory Rate 21 H 18 Blood Pressure 139/72 139/72 Pulse Oximetry 95 95 Oxygen Delivery Room Air 04/06/23 16:00 04/06/23 17:00 04/06/23 17:46 Temperature Pulse Rate 81 72 81 Respiratory Rate Blood Pressure 111/62 84/48 L Pulse Oximetry Oxygen Delivery 04/06/23 18:00 04/06/23 18:00 04/06/23 20:00 Temperature
[2023-04-07 10:18] LABS: Procalcitonin 6.2 ng/mL
[2023-04-07] MEDS: ALBUMIN HUMAN 25% 25 GM/100 ML 100 ML IVPB ×3 (11:24→23:03)
[2023-04-07] MEDS: oxyCODONE HCL (*CRX) 5 MG TAB IR PO (20:16)
[2023-04-07] MEDS: ONDANSETRON INJ 4 MG/2 ML VIAL IV PUSH (20:16)
[2023-04-07 20:52] LABS: Calcium 9.1 mg/dL (8.4-10.2)
[2023-04-07 20:58] LABS: Potassium 4.1 mmol/L (3.4-5.0)
[2023-04-07] MEDS: MORPHINE SULFATE (*CRX) 2 MG/ML INJ IV PUSH (22:22)
[2023-04-08] VITALS (73 sets, daily range): BP systolic 106–148; BP diastolic 47–117; PULSE 76–114; RESP 17–38; TEMP 36.2–36.9; O2SAT 87–100
[2023-04-08] MEDS: FUROSEMIDE INJ 40 MG/4 ML VIAL 20 MG IV PUSH (01:30)
[2023-04-08] MEDS: ALBUMIN HUMAN 25% 25 GM/100 ML 100 ML IVPB (04:35)
[2023-04-08] MEDS: CENTRAL LINE FLUSH 10 ML IV PUSH ×5 (04:35→20:45)
[2023-04-08 05:04] LABS: Hematocrit 28.7 % (37.0-47.0); Hemoglobin 9.3 g/dL (12.0-15.0); Mean Corpuscular HGB Conc 32.4 g/dl (32-36); Mean Corpuscular Hemoglobin 28.5 pg (26-34); Mean Platelet Volume 11.1 fl (7.4-10.4); Platelet Count Result 149 k/mm3 (150-375); Red Blood Count 3.26 M/mm3 (4.2-5.4); Red Cell Distribution Width 16.5 % (11.5-14.5); White Blood Count 12.8 K/mm3 (4.5-10.0)
[2023-04-08 05:15] LABS: Alanine Aminotransferase 28 U/L (6-35); Albumin Level 3.7 g/dL (3.5-5.1); Alkaline Phosphatase 179 U/L (38-126); Anion Gap 6 mmol/L (8-16); Aspartate Amino Transferase 31 U/L (14-36); Bilirubin,Total 2.8 mg/dL (0.2-1.3); Blood Urea Nitrogen 13 mg/dL (7-17); Calcium 9.4 mg/dL (8.4-10.2); Carbon Dioxide 27 mmol/L (22-30); Chloride 105 mmol/L (98-107); Estimated CRCL calculation 61 ml/min; Estimated Glomerular Filt Rate > 60; Glucose 107 mg/dL (65-110); Magnesium 1.8 mg/dL (1.6-2.3); Phosphorus 2.4 mg/dL (2.5-4.5); Potassium 3.8 mmol/L (3.4-5.0); Sodium 138 mmol/L (137-145)
--- NOTE | 2023-04-08 06:50 | ECHO_ITS ---
Patient Info Name: Lynne Hoskins Age: 77 years : 1945 Gender: Female Ht: 60 in Wt: 167 lbs BSA: 1.82 m2 HR: 99 bpm BP: 128 / 88 mmHg Heart Rhythm: Sinus Rhythm Technical Quality: Fair Exam Date: 04/08/2023 7:40 AM Exam Location: [facility] Patient Status: Inpatient Admit Date: 04/06/2023 Staff Ordering Physician: Nory Zhang PA-C Customer Relations Specialist: Pau Rodríguez RDCS Attending Provider: Juan Jose Burks MD Referring Physician: Vicente MAHONEY; Exam Type: CA echo doppler color flow Study Info Indications R01.1 - Cardiac murmur, unspecified Complete two-dimensional, color flow and Doppler transthoracic echocardiogram is performed. Summary 1. Complete two-dimensional, color flow and Doppler transthoracic echocardiogram is performed. 2. Aneurysmal atrial septum. 3. Left ventricular chamber dimension is normal. 4. Left ventricular systolic function is normal, estimated at 65-70%. 5. There is no increased left ventricular wall thickness. 6. The left ventricular diastolic function is grade I diastolic dysfunction. 7. Left atrial chamber dimension is mildly enlarged. 8. There is mild to moderate mitral valve regurgitation. 9. The mitral valve annulus is moderately calcified. 10. The mitral valve has thickened leaflets. 11. There is mild to moderate tricuspid valve regurgitation. 12. Moderate pulmonary hypertension, estimated pulmonary arterial systolic pressure is 56 mmHg. 13. Mild aortic stenosis. Calculated aortic valve area is 1.1 centimeter squared but I do not think the valve area is this severe. Left Ventricle Left ventricular chamber dimension is normal. Left ventricular systolic function is normal, estimated at 65-70%. There is no increased left ventricular wall thickness. The left ventricular diastolic function is grade I diastolic dysfunction. Right Ventricle Right ventricular chamber dimension is normal. Right ventricular systolic function is normal. Left Atria Left atrial chamber dimension is mildly enlarged. Right Atria Right atrial chamber dimension is normal. Atrial Septum Aneurysmal atrial septum. Aortic Valve The aortic valve is trileaflet. There is mild aortic valve sclerosis. There is trace aortic valve regurgitation. Mild aortic stenosis. Calculated aortic valve area is 1.1 centimeter squared but I do not think the valve area is this severe. Pulmonic Valve The pulmonic valve is normal. There is no pulmonic valve stenosis. There is trace pulmonic regurgitation. Mitral Valve The mitral valve has thickened leaflets. There is no mitral valve stenosis. There is mild to moderate mitral valve regurgitation. The mitral valve annulus is moderately calcified. Tricuspid Valve The tricuspid valve leaflets are normal. There is no significant tricuspid valve stenosis. There is mild to moderate tricuspid valve regurgitation. Moderate pulmonary hypertension, estimated pulmonary arterial systolic pressure is 56 mmHg. Pericardium/Pleural The pericardium appears normal. There is no pericardial effusion. Inferior Vena Cava Dilated inferior vena cava with <50% collapse upon inspiration consistent with elevated right atrial pressure, 10 mmHg. Aorta The aortic root size at the sinus of Valsalva is normal. Left Ventricular Outflow Tract Name Value Normal LVOT 2D
[2023-04-08] MEDS: FUROSEMIDE INJ 40 MG/4 ML VIAL IV PUSH (08:16)
[2023-04-08] MEDS: DOCUSATE SODIUM 100 MG CAPSULE PO ×2 (08:16→16:27)
[2023-04-08] MEDS: MEROPENEM 1 GM in SODIUM CHLORIDE 0.9% IV 100 ML 200 ML IVPB ×2 (08:16→20:42)
[2023-04-08] MEDS: ENOXAPARIN 40 MG/0.4 ML SYRINGE SUB-Q (08:17)
[2023-04-08] MEDS: CHOLECALCIFEROL 400 UNITS TABLET (VIT D) PO ×2 (08:17→16:27)
[2023-04-08] MEDS: ANASTROZOLE (*CHEMO) 1 MG TABLET PO (08:17)
[2023-04-08] MEDS: MORPHINE SULFATE (*CRX) 2 MG/ML INJ IV PUSH ×2 (08:17→12:39)
[2023-04-08] MEDS: FLUoxetine HCL 20 MG CAPSULE BY MOUTH (08:18)
[2023-04-08] MEDS: CYANOCOBALAMIN 1,000 MCG TABLET 1000 MCG PO (08:18)
--- NOTE | 2023-04-08 08:26 | WPDINTPN ---
Progress Note: A&P Assessment and Plan (1) Septic shock: Code(s): A41.9 - Sepsis, unspecified organism; R65.21 - Severe sepsis with septic shock Status: Acute Assessment and Plan: Patient presented with picture consistent with sepsis secondary to UTI pyelonephritis and possible cholecystitis Blood culture growing Gram-negative bacilli. She has history of ESBL. Urine cultures negative till now CT abdomen and pelvis does not show any renal stones or hydronephrosis CT does show gallstones with gallbladder wall thickening although patient does not have any tenderness on exam in right upper quadrant Patient was given IV fluids bolus and was started on infusion Blood pressures improved and levophed has been weaned off IV fluids have been discontinued due to volume overload DC albumin procalcitonin level 6.2 Echo pending (2) Acute respiratory failure with hypoxia: Code(s): J96.01 - Acute respiratory failure with hypoxia Status: Acute Assessment and Plan: Patient developed hypoxia and increased oxygen requirement overnight She was placed on airvo Chest x-ray was done which showed pulse pulmonary edema I have decreased her IV fluids yesterday to 50 mL/hour it appears that she has developed volume overload from IV fluids that she received for her sepsis She was given 20 mg of Lasix overnight and I will give her another dose this morning Check BNP Echo is being done and report pending (3) Acute bacterial pyelonephritis: Code(s): N10 - Acute pyelonephritis; B96.89 - Other specified bacterial agents as the cause of diseases classified elsewhere Status: Acute Assessment and Plan: See above (4) Cholelithiasis: Qualifiers: Biliary obstruction: without biliary obstruction Cholecystitis presence: without cholecystitis Cholelithiasis location: gallbladder Qualified Code(s): K80.20 - Calculus of gallbladder without cholecystitis without obstruction Code(s): K80.20 - Calculus of gallbladder without cholecystitis without obstruction Status: Acute Assessment and Plan: CT scan shows gallstones which patient was aware of for last 4 years but now has elevated liver enzyme MRCP is ordered to evaluate biliary tree which was delayed as patient was on vasopressor yesterday Consult GI (5) Elevated liver enzymes: Code(s): R74.8 - Abnormal levels of other serum enzymes Status: Acute Assessment and Plan: Levels improving see above (6) Other spondylosis with radiculopathy, lumbosacral region: Code(s): M47.27 - Other spondylosis with radiculopathy, lumbosacral region Status: Acute Assessment and Plan: Patient has chronic back pain and CT scan shows severe degenerative joint disease Patient states the pain is improved Continue pain control Will consult PT once patient is off of vasopressors (7) Nausea: Code(s): R11.0 - Nausea Status: Acute Assessment and Plan: P.r.n. Zofran Appears to have resolved Plan DVT prophylaxis -Lovenox Nutrition -diet ordered Code Status - Full Code Total Critical Care Time - 32 minutes Due to a high probability of clinically significant, life threatening deterioration, the patient required my highest level of preparedness to intervene emergently and I personally spent this critical care time directly and personally managing the patient. This critical care time included obtaining a history; examining the patient; pulse oximetry; ordering and review of studies; arranging urgent treatment with development of a management plan; evaluation of patient's response to treatment; frequent reassessment; and discussions with other providers. It was exclusive of separately billable procedures and treating other patients and teaching time. Please see Assessment and Plan section and the rest of the note for further information on patient assessment and treatment Subjective Date/time seen: 04/08/23
[2023-04-08] MEDS: POTASSIUM PHOS,M-BASIC-D-BASIC 15 MMOL in SODIUM CHLORIDE 0.9% IV 250 ML 63.75 MMOL IVPB (08:29)
[2023-04-08] MEDS: MAGNESIUM SULF 1 GM/D5W 100 ML 1 GM/100 ML BAG IVPB (08:29)
[2023-04-08 09:01] LABS: NT Pro B Type Natriuretic Pept 13300 pg/mL (19.9-100)
--- NOTE | 2023-04-08 11:16 | PM.IMPN ---
Progress Note: A&P Assessment and Plan (1) Septic shock: Code(s): A41.9 - Sepsis, unspecified organism; R65.21 - Severe sepsis with septic shock Status: Acute Assessment and Plan: Patient presented with picture consistent with sepsis secondary to UTI pyelonephritis and possible cholecystitis Blood culture growing Gram-negative bacilli. She has history of ESBL. Urine cultures negative till now CT abdomen and pelvis does not show any renal stones or hydronephrosis CT does show gallstones with gallbladder wall thickening although patient does not have any tenderness on exam in right upper quadrant Patient was given IV fluids bolus and was started on infusion Blood pressures improved and levophed has been weaned off IV fluids have been discontinued due to volume overload procalcitonin level 6.2 Echo pending (2) Acute respiratory failure with hypoxia: Code(s): J96.01 - Acute respiratory failure with hypoxia Status: Acute Assessment and Plan: Patient developed hypoxia and increased oxygen requirement overnight She was placed on airvo Chest x-ray was done which showed pulse pulmonary edema check BNP Echo is being done and report pending (3) Acute bacterial pyelonephritis: Code(s): N10 - Acute pyelonephritis; B96.89 - Other specified bacterial agents as the cause of diseases classified elsewhere Status: Acute Assessment and Plan: See above (4) Cholelithiasis: Qualifiers: Biliary obstruction: without biliary obstruction Cholecystitis presence: without cholecystitis Cholelithiasis location: gallbladder Qualified Code(s): K80.20 - Calculus of gallbladder without cholecystitis without obstruction Code(s): K80.20 - Calculus of gallbladder without cholecystitis without obstruction Status: Acute Assessment and Plan: CT scan shows gallstones which patient was aware of for last 4 years but now has elevated liver enzyme MRCP is ordered to evaluate biliary tree which was delayed as patient was on vasopressor yesterday Consult GI (5) Elevated liver enzymes: Code(s): R74.8 - Abnormal levels of other serum enzymes Status: Acute Assessment and Plan: Levels improving see above (6) Other spondylosis with radiculopathy, lumbosacral region: Code(s): M47.27 - Other spondylosis with radiculopathy, lumbosacral region Status: Acute Assessment and Plan: Patient has chronic back pain and CT scan shows severe degenerative joint disease Patient states the pain is improved Continue pain control Will consult PT once patient is off of vasopressors (7) Nausea: Code(s): R11.0 - Nausea Status: Acute Assessment and Plan: P.r.nDayana Miller Appears to have resolved Plan Management per programming specialist Subjective Date/time seen: 04/08/23 11:16 Interval history: Stable Review of Systems Review of Systems: All systems reviewed & are unremarkable except as noted in HPI and below (HPI) Exam Narrative: General: Pt is alert awake and in NAD Lungs/Chest: Trachea central Clear BS B/L, bibasilar crackles are present Cardiac: RRR. Normal S1 S2. No murmurs Circulation: Pedal pulses are intact and symmetrical. Abdomen: Normal bowel sounds.. Soft. Mild tenderness palpation in left flank and left lower quarter, Salmeron sign negative, no tenderness in right upper quadrant Extremities: No clubbing, cyanosis or edema. Warm right femoral central venous catheter : Mora in place Neurologic: Follows commands. Moves all 4 extremities PERRL AO x3, muscle strength slightly decreased in the right lower extremity as compared to left lower extremity, sensation to touch intact, no redness swelling on spine, patient has scoliosis. No point tenderness on spine Skin: No Rash, several scars from old surgical incisions from knee surgeries, no abnormality at the site of intramuscular injection that she received as an outpatient on the right but
--- NOTE | 2023-04-08 13:04 | WPDGICN ---
Assessment and Plan Assessment and plan (1) Septic shock: Code(s): A41.9 - Sepsis, unspecified organism; R65.21 - Severe sepsis with septic shock Status: Acute Assessment and Plan: not longer on levophed and better + GNR bacteremia, most likely source is pyelonephritis already on iv antibiotics by [place] pending MRCP to rule out biliary source (had elevated bili and mild transaminitis) but abnormal blood work could also be due to septic picture- continue to monitor (2) Acute bacterial pyelonephritis: Code(s): N10 - Acute pyelonephritis; B96.89 - Other specified bacterial agents as the cause of diseases classified elsewhere Status: Acute Assessment and Plan: on abx (3) Elevated liver enzymes: Code(s): R74.8 - Abnormal levels of other serum enzymes Status: Acute Assessment and Plan: probably from sepsis but awaiting mrcp trend liver enzymes (4) Bacteremia due to Gram-negative bacteria: Code(s): R78.81 - Bacteremia Status: Acute Assessment and Plan: on abx (5) Acute respiratory failure with hypoxia: Code(s): J96.01 - Acute respiratory failure with hypoxia Status: Acute Assessment and Plan: pulmonary edema by icu (6) Nausea: Code(s): R11.0 - Nausea Status: Acute (7) Cholelithiasis: Qualifiers: Biliary obstruction: without biliary obstruction Cholecystitis presence: without cholecystitis Cholelithiasis location: gallbladder Qualified Code(s): K80.20 - Calculus of gallbladder without cholecystitis without obstruction Code(s): K80.20 - Calculus of gallbladder without cholecystitis without obstruction Status: Acute Assessment and Plan: she had similar findings about 4 years ago, denies ruq pain pending mrcp (8) Low back pain: Qualifiers: Back pain laterality: right Chronicity: acute Sciatica laterality: sciatica of right side Sciatica presence: with sciatica Qualified Code(s): M54.41 - Lumbago with sciatica, right side Code(s): M54.50 - Low back pain, unspecified Status: Acute (9) 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 She was admitted 2 days ago with severe lower back pain that started 3-4 days ago prior to admission. She has previous history of UTI (h/o ESBL last month). Denies abdominal pain but had nausea without vomiting. Her white count 11.5.? H&H 11.2 and 34.9.? Total bilirubin 3.2, AST 73, ALT 54, and alkaline phosphatase 311.? C reactive protein 38.3.? Urine is cloudy 2+ protein 2+ blood 1+ urine bilirubin leukocyte esterase 2+ urine WBC 51-100.? 4+ bacteria.? On admission was hypotensive, admitted to ICU on levophed but weaned off. She is doing better today. Blood culture growing Gram-negative bacilli.? CT abdomen and pelvis reviewed, Subtle changes of left kidney suggesting possible pyelonephritis, Hepatic steatosis, Cholelithiasis, mild gallbladder wall thickening, Diverticulosis of the colon; no evidence of diverticulitis Normal appendix Review of Systems Constitutional: Constitutional: Reports fatigue Eyes: Eyes: Denies blurry vision ENT: Reports Normal hearing present Cardiovascular: Cardiovascular: Denies chest pain Respiratory: Respiratory: Denies cough Gastrointestinal: Gastrointestinal: Reports nausea Genitourinary: Comments: h/o UTI Musculoskeletal: Musculoskeletal: Reports back pain Integumentary/Breasts: Skin/Breast: Denies rash Neurologic: Denies Abnormal speech present Psychiatric: Psychiatric: Denies confusion [facility] Past Medical History Medical History (Updated 04/08/23 @ 13:13 by Alexsander Conroy MD) Acquired valgus deform
--- NOTE | 2023-04-08 14:48 | PC.NURSE ---
Patient back from MRI.
[2023-04-08] MEDS: oxyCODONE HCL (*CRX) 5 MG TAB IR PO ×2 (16:24→20:43)
[2023-04-08] MEDS: MELATONIN 5 MG TABLET PO (20:44)
[2023-04-09] VITALS (9 sets, daily range): BP systolic 122–147; BP diastolic 59–74; PULSE 71–80; RESP 16–20; TEMP 36.5–37.1; O2SAT 91–98
[2023-04-09] MEDS: CENTRAL LINE FLUSH 10 ML IV PUSH (05:09)
[2023-04-09 05:28] LABS: Hematocrit 27.7 % (37.0-47.0); Hemoglobin 9.2 g/dL (12.0-15.0); Mean Corpuscular HGB Conc 33.2 g/dl (32-36); Mean Corpuscular Hemoglobin 28.9 pg (26-34); Mean Corpuscular Volume 87.1 fl (80-100); Mean Platelet Volume 10.5 fl (7.4-10.4); Platelet Count Result 168 k/mm3 (150-375); Red Blood Count 3.18 M/mm3 (4.2-5.4); Red Cell Distribution Width 16.7 % (11.5-14.5); White Blood Count 13.7 K/mm3 (4.5-10.0)
[2023-04-09 05:41] LABS: Alanine Aminotransferase 26 U/L (6-35); Albumin Level 3.5 g/dL (3.5-5.1); Alkaline Phosphatase 151 U/L (38-126); Anion Gap 6 mmol/L (8-16); Aspartate Amino Transferase 29 U/L (14-36); Bilirubin,Total 2.2 mg/dL (0.2-1.3); Blood Urea Nitrogen 16 mg/dL (7-17); Calcium 8.8 mg/dL (8.4-10.2); Carbon Dioxide 31 mmol/L (22-30); Chloride 98 mmol/L (98-107); Estimated CRCL calculation 59 ml/min; Estimated Glomerular Filt Rate > 60; Glucose 103 mg/dL (65-110); Phosphorus 4.1 mg/dL (2.5-4.5); Potassium 3.2 mmol/L (3.4-5.0); Sodium 135 mmol/L (137-145)
[2023-04-09] MEDS: MORPHINE SULFATE (*CRX) 2 MG/ML INJ IV PUSH (08:13)
[2023-04-09] MEDS: DOCUSATE SODIUM 100 MG CAPSULE PO ×2 (08:34→17:48)
[2023-04-09] MEDS: ENOXAPARIN 40 MG/0.4 ML SYRINGE SUB-Q (08:34)
[2023-04-09] MEDS: ANASTROZOLE (*CHEMO) 1 MG TABLET PO (08:34)
[2023-04-09] MEDS: CYANOCOBALAMIN 1,000 MCG TABLET 1000 MCG PO (08:34)
[2023-04-09] MEDS: CHOLECALCIFEROL 400 UNITS TABLET (VIT D) PO ×2 (08:34→17:48)
[2023-04-09] MEDS: FLUoxetine HCL 20 MG CAPSULE BY MOUTH (08:35)
[2023-04-09] MEDS: POTASSIUM CHLORIDE 20 MEQ ER TABLET 40 MEQ PO (08:35)
[2023-04-09] MEDS: MEROPENEM 1 GM in SODIUM CHLORIDE 0.9% IV 100 ML 200 ML IVPB (08:55)
--- NOTE | 2023-04-09 10:12 | PCPTNOTE ---
Pt has a femoral Line at this time. Will see pt when safe to mobilize.
--- NOTE | 2023-04-09 10:15 | PM.IMPN ---
Progress Note: A&P Assessment and Plan (1) Septic shock: Code(s): A41.9 - Sepsis, unspecified organism; R65.21 - Severe sepsis with septic shock Status: Acute Assessment and Plan: Patient presented with picture consistent with sepsis secondary to UTI pyelonephritis and possible cholecystitis Blood culture growing Gram-negative bacilli. She has history of ESBL. Urine cultures negative till now CT abdomen and pelvis does not show any renal stones or hydronephrosis CT does show gallstones with gallbladder wall thickening although patient does not have any tenderness on exam in right upper quadrant GI consult. Pending MRCP (2) Acute respiratory failure with hypoxia: Code(s): J96.01 - Acute respiratory failure with hypoxia Status: Acute Assessment and Plan: Resolved (3) Acute bacterial pyelonephritis: Code(s): N10 - Acute pyelonephritis; B96.89 - Other specified bacterial agents as the cause of diseases classified elsewhere Status: Acute Assessment and Plan: On IV meropenem (4) Cholelithiasis: Qualifiers: Biliary obstruction: without biliary obstruction Cholecystitis presence: without cholecystitis Cholelithiasis location: gallbladder Qualified Code(s): K80.20 - Calculus of gallbladder without cholecystitis without obstruction Code(s): K80.20 - Calculus of gallbladder without cholecystitis without obstruction Status: Acute Assessment and Plan: CT scan shows gallstones which patient was aware of for last 4 years but now has elevated liver enzyme MRCP is ordered to evaluate biliary tree which was delayed as patient was on vasopressor yesterday Consult GI (5) Elevated liver enzymes: Code(s): R74.8 - Abnormal levels of other serum enzymes Status: Acute Assessment and Plan: Levels improving see above (6) Other spondylosis with radiculopathy, lumbosacral region: Code(s): M47.27 - Other spondylosis with radiculopathy, lumbosacral region Status: Acute Assessment and Plan: Patient has chronic back pain and CT scan shows severe degenerative joint disease Continue pain control Will consult PT and OT Subjective Date/time seen: 04/09/23 10:15 Interval history: Patient reports low back ache. No abdominal pain Review of Systems Review of Systems: All systems reviewed & are unremarkable except as noted in HPI and below (HPI) Exam Narrative: General: Pt is alert awake and in NAD Lungs/Chest: Trachea central Clear BS B/L, bibasilar crackles are present Cardiac: RRR. Normal S1 S2. No murmurs Circulation: Pedal pulses are intact and symmetrical. Abdomen: Normal bowel sounds.. Soft. Mild tenderness palpation in left flank and left lower quarter, Salmeron sign negative, no tenderness in right upper quadrant Extremities: No clubbing, cyanosis or edema. Warm right femoral central venous catheter : Mora in place Neurologic: Follows commands. Moves all 4 extremities PERRL AO x3, muscle strength slightly decreased in the right lower extremity as compared to left lower extremity, sensation to touch intact, no redness swelling on spine, patient has scoliosis. No point tenderness on spine Skin: No Rash, several scars from old surgical incisions from knee surgeries, no abnormality at the site of intramuscular injection that she received as an outpatient on the right buttock Objective Data Vital Signs Vital Signs: Vital Signs - 24 hr 04/08/23 12:00 04/08/23 10:30 04/08/23 10:45 Temperature Pulse Rate 84 88 87 Respiratory Rate 23 H 23 H 28 H Blood Pressure Pulse Oximetry 100 99 100 Oxygen Delivery High Flow Therapy with Na Oxygen Flow Rate 30 Fraction of Inspired Oxygen 50 04/08/23 11:01 04/08/23 11:04 04/08/23 11:40 Temperature Pulse Rate 84 88 86 Respiratory Rate 26 H 18 17 Blood Pressure 106/79 Pulse Oximetry 100 98 100 Oxygen Delivery Oxygen Flow Rate Fraction of Insp
--- NOTE | 2023-04-09 14:12 | WPDGIPROGNO ---
Progress Note: A&P Assessment and Plan (1) Bacteremia due to Gram-negative bacteria: Code(s): R78.81 - Bacteremia Status: Acute Assessment and Plan: on iv abx septic shock resolved (2) Discitis of lumbar region: Code(s): M46.46 - Discitis, unspecified, lumbar region Status: Acute Assessment and Plan: still with low back pain reviewed mrcp no biliary disease but found discitis L1 with possible small abscess by Rt psoas- on iv antibiotics and probably will need spine surgery consult- by primary no need of ercp (3) Elevated liver enzymes: Code(s): R74.8 - Abnormal levels of other serum enzymes Status: Acute Assessment and Plan: stable probably from sepsis no need of ercp or gi intervention at this point (4) Low back pain: Qualifiers: Back pain laterality: right Chronicity: acute Sciatica laterality: sciatica of right side Sciatica presence: with sciatica Qualified Code(s): M54.41 - Lumbago with sciatica, right side Code(s): M54.50 - Low back pain, unspecified Status: Acute (5) Cholelithiasis: Qualifiers: Biliary obstruction: without biliary obstruction Cholecystitis presence: without cholecystitis Cholelithiasis location: gallbladder Qualified Code(s): K80.20 - Calculus of gallbladder without cholecystitis without obstruction Code(s): K80.20 - Calculus of gallbladder without cholecystitis without obstruction Status: Acute (6) Acute bacterial pyelonephritis: Code(s): N10 - Acute pyelonephritis; B96.89 - Other specified bacterial agents as the cause of diseases classified elsewhere Status: Acute Assessment and Plan: on iv abx Subjective Date/time seen: 04/09/23 14:12 Interval history: patient was moved to floor, still with persistent back pain and rt flank. unchanged. Review of Systems Review of Systems: All systems reviewed & are unremarkable except as noted in HPI and below Exam Const: General: comfortable and no acute distress HENMT: Face/Nose/Sinus: Normal nares present Eyes: General: appearance normal, both eyes and all related structures Neck: Neck: supple Resp: Auscultation: clear to auscultation bilaterally Cardio: Rate: regular rate Rhythm: regular rhythm GI: Inspection: non-distended GI Palp: Yes Soft to palpation and No Guarding due to palpation present (GI) Back/Spine/Pelvis: Other: rt flank pain Skin: General skin exam: normal color Neuro: Speech: normal speech Motor exam (neuro): 5/5 motor strength present throughout Extrem: General: normal to inspection Psych: Mental Status: mental status grossly normal Objective Data Vital Signs Vital Signs: Vital Signs - 24 hr 04/08/23 16:00 04/08/23 16:00 04/08/23 16:00 Temperature Pulse Rate 82 80 82 Respiratory Rate 20 22 H Blood Pressure 125/93 H Pulse Oximetry 99 98 Oxygen Delivery High Flow Therapy with Na Oxygen Flow Rate 3 Fraction of Inspired Oxygen 04/08/23 17:12 04/08/23 18:11 04/08/23 18:00 Temperature 98.3 F Pulse Rate 82 79 Respiratory Rate 26 H Blood Pressure 115/47 L Pulse Oximetry 93 96 Oxygen Delivery Oxygen Flow Rate Fraction of Inspired Oxygen 04/08/23 19:56 04/08/23 20:00 04/08/23 20:00 Temperature 97.6 F Pulse Rate 82 84 82 Respiratory Rate 20 20 Blood Pressure 121/64 Pulse Oximetry 99 99 Oxygen Delivery Nasal Cannula Oxygen Flow Rate 2 Fraction of Inspired Oxygen 50 04/08/23 22:00 04/08/23 23:31 04/09/23 00:00 Temperature 97.1 F L Pulse Rate 76 84 80 Respiratory Rate 20 Blood Pressure 118/60 Pulse Oximetry 96 Oxygen Delivery Oxygen Flow Rate Fraction of Inspired Oxygen 04/09/23 00:00 04/09/23 02:00 04/09/23 04:00 Temperature Pulse Rate 80 76 76 Respiratory Rate 20 Blood Pressure Pulse Oximetry 96 Oxygen Delivery Nasal Cannula Oxygen Flow Rate 2 Fract
[2023-04-09] MEDS: oxyCODONE HCL (*CRX) 5 MG TAB IR PO (15:39)
--- NOTE | 2023-04-09 16:20 | PC.NURSE ---
This patient, Lnyne Hoskins, was received from [facility] on 04/09/23 at 1620. Patient/family oriented to unit policies and routines. Report received from Debra.
--- NOTE | 2023-04-09 16:30 | PC.NURSE ---
This patient, Lynne Hoskins, was transferred to [[id number] ] on 04/09/23 at 1620. Personal belongings sent with patient. Report given to [SOURAV Castillo @ 1600 ]. Appropriate documentation sent with patient.
--- NOTE | 2023-04-09 17:20 | PCPTNOTE ---
On 04/09/23, the student, [iMmi Landeros], provided care and completed [facility] documentation on this patient. I have reviewed the student's documentation and agree with the findings.
[2023-04-09] MEDS: ERTAPENEM 1 GM/NS 50 ML 1 GM/50 ML BAG IVPB (17:48)
[2023-04-09] MEDS: MELATONIN 5 MG TABLET PO (20:51)
[2023-04-10] MEDS: oxyCODONE HCL (*CRX) 5 MG TAB IR PO ×3 (01:08→20:01)
[2023-04-10 05:43] VITALS: BP 145/81; PULSE 70; RESP 16; TEMP 36.2; O2SAT 96
[2023-04-10] MEDS: ACETAMINOPHEN 325 MG TABLET 650 MG PO (06:12)
[2023-04-10] MEDS: ONDANSETRON INJ 4 MG/2 ML VIAL IV PUSH (06:12)
[2023-04-10 06:42] LABS: Hematocrit 30.7 % (37.0-47.0); Hemoglobin 9.9 g/dL (12.0-15.0); Mean Corpuscular HGB Conc 32.2 g/dl (32-36); Mean Platelet Volume 10.9 fl (7.4-10.4); Platelet Count Result 237 k/mm3 (150-375); Red Blood Count 3.53 M/mm3 (4.2-5.4); Red Cell Distribution Width 16.8 % (11.5-14.5); White Blood Count 15.7 K/mm3 (4.5-10.0)
[2023-04-10 06:53] LABS: Alanine Aminotransferase 38 U/L (6-35); Albumin Level 3.5 g/dL (3.5-5.1); Alkaline Phosphatase 153 U/L (38-126); Anion Gap 7 mmol/L (8-16); Aspartate Amino Transferase 52 U/L (14-36); Blood Urea Nitrogen 15 mg/dL (7-17); Calcium 9.3 mg/dL (8.4-10.2); Carbon Dioxide 32 mmol/L (22-30); Chloride 94 mmol/L (98-107); Estimated CRCL calculation 70 ml/min; Estimated Glomerular Filt Rate > 60; Glucose 107 mg/dL (65-110); Potassium 3.7 mmol/L (3.4-5.0); Sodium 133 mmol/L (137-145)
[2023-04-10] MEDS: ENOXAPARIN 40 MG/0.4 ML SYRINGE SUB-Q (08:53)
[2023-04-10] MEDS: CHOLECALCIFEROL 400 UNITS TABLET (VIT D) PO ×2 (08:53→16:31)
[2023-04-10] MEDS: ANASTROZOLE (*CHEMO) 1 MG TABLET PO (08:53)
[2023-04-10] MEDS: FLUoxetine HCL 20 MG CAPSULE BY MOUTH (08:53)
[2023-04-10] MEDS: CYANOCOBALAMIN 1,000 MCG TABLET 1000 MCG PO (08:53)
[2023-04-10] MEDS: DOCUSATE SODIUM 100 MG CAPSULE PO ×2 (08:53→16:31)
[2023-04-10] MEDS: PREGABALIN (*CRX) 75 MG CAPSULE 150 MG PO ×2 (10:04→16:33)
[2023-04-10 11:49] VITALS: BMI 30.9
--- NOTE | 2023-04-10 13:22 | PCPTNOTE ---
Attempted to see patient for PT, however patient was out of the room for testing.
[2023-04-10 14:00] VITALS: BP 111/55; PULSE 68; RESP 20; TEMP 36.2; O2SAT 96
--- NOTE | 2023-04-10 14:10 | PCPTNOTE ---
Attempted to see patient for PT, however patient declined due to back pain 05/23. RN aware. Patient just got back in room from testing.
--- NOTE | 2023-04-10 14:42 | PM.IMPN ---
Progress Note: A&P Assessment and Plan (1) Septic shock: Code(s): A41.9 - Sepsis, unspecified organism; R65.21 - Severe sepsis with septic shock Status: Acute Assessment and Plan: Patient presented with picture consistent with sepsis secondary to UTI pyelonephritis and possible cholecystitis Blood culture growing Gram-negative bacilli. She has history of ESBL. Urine cultures negative till now CT abdomen and pelvis does not show any renal stones or hydronephrosis CT does show gallstones with gallbladder wall thickening although patient does not have any tenderness on exam in right upper quadrant MRCP resulted discitis at L1 MRI L spine ordered Neurosurgery on board Pt will benefit from transfer to facility with ID care for senior living iv ABX (2) Acute respiratory failure with hypoxia: Code(s): J96.01 - Acute respiratory failure with hypoxia Status: Acute Assessment and Plan: Wean of oxygen (3) Acute bacterial pyelonephritis: Code(s): N10 - Acute pyelonephritis; B96.89 - Other specified bacterial agents as the cause of diseases classified elsewhere Status: Acute Assessment and Plan: On IV meropenem (4) Cholelithiasis: Qualifiers: Biliary obstruction: without biliary obstruction Cholecystitis presence: without cholecystitis Cholelithiasis location: gallbladder Qualified Code(s): K80.20 - Calculus of gallbladder without cholecystitis without obstruction Code(s): K80.20 - Calculus of gallbladder without cholecystitis without obstruction Status: Acute Assessment and Plan: CT scan shows gallstones which patient was aware of for last 4 years but now has elevated liver enzyme MRCP is ordered to evaluate biliary tree which was delayed as patient was on vasopressor yesterday Consult GI (5) Elevated liver enzymes: Code(s): R74.8 - Abnormal levels of other serum enzymes Status: Acute Assessment and Plan: See above (6) Other spondylosis with radiculopathy, lumbosacral region: Code(s): M47.27 - Other spondylosis with radiculopathy, lumbosacral region Status: Acute Assessment and Plan: Patient has chronic back pain and CT scan shows severe degenerative joint disease Continue pain control Will consult PT and OT Subjective Date/time seen: 04/10/23 14:42 Interval history: Patient denies back pain or abdominal pains Afebrile Pt seen by GI and neurosurgery likely will need transfer to facility with ID after MRI spine test today Transfer for diskitis to be arranged Review of Systems Review of Systems: no specific complaints All systems reviewed & are unremarkable except as noted in HPI and below (HPI) Exam Narrative: General: Pt is alert awake and in NAD Lungs/Chest: Trachea central Clear BS B/L, bibasilar crackles are present Cardiac: RRR. Normal S1 S2. No murmurs Circulation: Pedal pulses are intact and symmetrical. Abdomen: Normal bowel sounds.. Soft. Mild tenderness palpation in left flank and left lower quarter, Salmeron sign negative, no tenderness in right upper quadrant Extremities: No clubbing, cyanosis or edema. Warm right femoral central venous catheter : Mora in place Neurologic: Follows commands. Moves all 4 extremities PERRL AO x3, muscle strength slightly decreased in the right lower extremity as compared to left lower extremity, sensation to touch intact, no redness swelling on spine, patient has scoliosis. No point tenderness on spine Skin: No Rash, several scars from old surgical incisions from knee surgeries, no abnormality at the site of intramuscular injection that she received as an outpatient on the right buttock Objective Data Vital Signs Vital Signs: Vital Signs - 24 hr 04/09/23 15:20 04/09/23 16:00 04/09/23 17:18 Temperature 37.1 C 36.6 C Pulse Rate 78 77 Respiratory Rate 18 16 Blood Pressure 130/63 147/70 H Pulse Oximetry 91 93 Oxygen Delivery Nasal
[2023-04-10 15:14] LABS: Appearance Urine Clear (Clear); Bacteria Urine None Seen /hpf; Bilirubin Urine Negative (Negative); Color Urine Yellow (Yellow); Glucose Urine UA Negative (Negative); Ketones Urine Negative (Negative); Leukocyte Esterase Ur Negative LEU/UL (Negative); Nitrate Urine Negative (Negative); Non Pathogenic Casts 0-2; Protein Urine Trace mg/dL (Negative); Specific Grav Ur 1.021 (1.001-1.035); Squamous Epithelial Cell Urine None seen /hpf (Few); WBC Urine 0-5 /hpf
[2023-04-10 15:16] LABS: Add Urine Microscopic? YES
[2023-04-10] MEDS: ERTAPENEM 1 GM/NS 50 ML 1 GM/50 ML BAG IVPB (16:28)
[2023-04-10] MEDS: MELATONIN 5 MG TABLET PO (21:58)
[2023-04-10] MEDS: SENNA/DOCUSATE SODIUM TABLET 1 TAB PO (21:58)
[2023-04-10 22:03] VITALS: BP 120/55; PULSE 71; RESP 18; TEMP 36.6; O2SAT 95
[2023-04-10] MEDS: FLUTICASONE PROPIONATE 0.05% NA SPR 16 GM BTL (*BKC) 1 SPRAY NASAL (23:03)
[2023-04-11 03:55] VITALS: O2SAT 97
[2023-04-11] MEDS: oxyCODONE HCL (*CRX) 5 MG TAB IR PO ×2 (05:18→12:53)
[2023-04-11 05:43] VITALS: BP 132/67; PULSE 75; RESP 16; TEMP 36.2; O2SAT 94
[2023-04-11 06:31] LABS: Hematocrit 32.1 % (37.0-47.0); Hemoglobin 10.4 g/dL (12.0-15.0); Mean Corpuscular HGB Conc 32.4 g/dl (32-36); Mean Corpuscular Hemoglobin 28.1 pg (26-34); Mean Corpuscular Volume 86.8 fl (80-100); Mean Platelet Volume 10.7 fl (7.4-10.4); Platelet Count Result 254 k/mm3 (150-375); Red Cell Distribution Width 16.7 % (11.5-14.5); White Blood Count 15.2 K/mm3 (4.5-10.0)
[2023-04-11 06:43] LABS: Alanine Aminotransferase 43 U/L (6-35); Albumin Level 3.5 g/dL (3.5-5.1); Alkaline Phosphatase 153 U/L (38-126); Anion Gap 4 mmol/L (8-16); Aspartate Amino Transferase 47 U/L (14-36); Bilirubin,Total 1.8 mg/dL (0.2-1.3); Blood Urea Nitrogen 14 mg/dL (7-17); Calcium 9.1 mg/dL (8.4-10.2); Carbon Dioxide 36 mmol/L (22-30); Chloride 91 mmol/L (98-107); Estimated CRCL calculation 84 ml/min; Estimated Glomerular Filt Rate > 60; Glucose 104 mg/dL (65-110); Sodium 131 mmol/L (137-145)
[2023-04-11 08:08] VITALS: O2SAT 96
[2023-04-11 08:19] VITALS: O2SAT 94
[2023-04-11] MEDS: CYANOCOBALAMIN 1,000 MCG TABLET 1000 MCG PO (09:45)
[2023-04-11] MEDS: ANASTROZOLE (*CHEMO) 1 MG TABLET PO (09:45)
[2023-04-11] MEDS: CHOLECALCIFEROL 400 UNITS TABLET (VIT D) PO ×2 (09:45→17:01)
[2023-04-11] MEDS: ENOXAPARIN 40 MG/0.4 ML SYRINGE SUB-Q (09:45)
[2023-04-11] MEDS: DOCUSATE SODIUM 100 MG CAPSULE PO ×2 (09:45→17:01)
[2023-04-11] MEDS: FLUoxetine HCL 20 MG CAPSULE BY MOUTH (09:45)
[2023-04-11] MEDS: PREGABALIN (*CRX) 75 MG CAPSULE 150 MG PO ×2 (09:45→17:01)
[2023-04-11] MEDS: FLUTICASONE PROPIONATE 0.05% NA SPR 16 GM BTL (*BKC) 1 SPRAY NASAL (09:46)
[2023-04-11] MEDS: VANCOMYCIN 1,250 MG/NS 250 ML 1,250 MG/250 ML BAG 166.67 MG IVPB (09:46)
[2023-04-11] MEDS: MORPHINE SULFATE (*CRX) 2 MG/ML INJ IV PUSH (09:51)
--- NOTE | 2023-04-11 12:56 | PM.IMPN ---
Progress Note: A&P Assessment and Plan (1) Other spondylosis with radiculopathy, lumbosacral region: Code(s): M47.27 - Other spondylosis with radiculopathy, lumbosacral region Status: Acute Assessment and Plan: Patient has chronic back pain and CT scan shows severe degenerative joint disease Continue pain control Will consult PT and OT (2) Discitis of lumbar region: Code(s): M46.46 - Discitis, unspecified, lumbar region Status: Acute Assessment and Plan: MRCP resulted discitis at L1 MRI L spine ordered Neurosurgery on board or curbside discussion as per discussion Pt will benefit from transfer to facility with ID care for fci iv ABX [facility] Transfer line contacted for transfer Pt is started on iv vancomycin yesterday MRI spine shows- - L1-L2 discitis with associated early osteomyelitis involving the adjacent L1 and L2 vertebral bodies. 2. Secondary small right psoas muscle abscess. 3. Otherwise mild lumbar and lower thoracic spondylosis. (3) Septic shock: Code(s): A41.9 - Sepsis, unspecified organism; R65.21 - Severe sepsis with septic shock Status: Acute Assessment and Plan: Patient presented with picture consistent with sepsis secondary to UTI pyelonephritis and possible cholecystitis Blood culture growing Gram-negative bacilli. She has history of ESBL. Urine cultures negative till now CT abdomen and pelvis does not show any renal stones or hydronephrosis CT does show gallstones with gallbladder wall thickening although patient does not have any tenderness on exam in right upper quadrant (4) Acute respiratory failure with hypoxia: Code(s): J96.01 - Acute respiratory failure with hypoxia Status: Acute Assessment and Plan: Wean of oxygen (5) Acute bacterial pyelonephritis: Code(s): N10 - Acute pyelonephritis; B96.89 - Other specified bacterial agents as the cause of diseases classified elsewhere Status: Acute Assessment and Plan: On IV meropenem (6) Cholelithiasis: Qualifiers: Biliary obstruction: without biliary obstruction Cholecystitis presence: without cholecystitis Cholelithiasis location: gallbladder Qualified Code(s): K80.20 - Calculus of gallbladder without cholecystitis without obstruction Code(s): K80.20 - Calculus of gallbladder without cholecystitis without obstruction Status: Acute Assessment and Plan: CT scan shows gallstones which patient was aware of for last 4 years but now has elevated liver enzyme MRCP is ordered to evaluate biliary tree which was delayed as patient was on vasopressor yesterday Consult GI (7) Elevated liver enzymes: Code(s): R74.8 - Abnormal levels of other serum enzymes Status: Acute Assessment and Plan: See above Subjective Date/time seen: 04/11/23 12:56 Interval history: Patient denies back pain or abdominal pains Afebrile Pt seen by GI and neurosurgery likely will need transfer to facility with ID after MRI spine test today Transfer for diskitis to be arranged calling [facility] transfer facility pt lives in [facility]. MRI spine - L1-L2 discitis with associated early osteomyelitis involving the adjacent L1 and L2 vertebral bodies. 2. Secondary small right psoas muscle abscess. 3. Otherwise mild lumbar and lower thoracic spondylosis. Review of Systems Review of Systems: No specific complaints All systems reviewed & are unremarkable except as noted in HPI and below (HPI) Constitutional: Constitutional: Reports as per HPI and Reports no additional constitutional complaints Cardiovascular: Cardiovascular: Reports no additional cardiovascular complaints Respiratory: Respiratory: Reports no additional respiratory complaints and Reports no additional respiratory complaints Gastrointestinal: Gastrointestinal: Reports as per HPI and Reports no additional gastrointestinal complaints Musculoskeletal:
--- NOTE | 2023-04-11 13:21 | PM.DS ---
DS: Admitting Diagnosis Discharge Date 04/11/2023 Admitting Diagnosis BACK PAIN DS: Discharge Diagnosis Discharge Diagnosis (1) Other spondylosis with radiculopathy, lumbosacral region: Code(s): M47.27 - Other spondylosis with radiculopathy, lumbosacral region Status: Acute Assessment and Plan: Patient has chronic back pain and CT scan shows severe degenerative joint disease Continue pain control Will consult PT and OT (2) Discitis of lumbar region: Code(s): M46.46 - Discitis, unspecified, lumbar region Status: Acute Assessment and Plan: MRCP resulted discitis at L1 MRI L spine ordered Neurosurgery on board or curbside discussion as per discussion Pt will benefit from transfer to facility with ID care for snf iv ABX [facility] Transfer line contacted for transfer Pt is started on iv vancomycin yesterday MRI spine shows- - L1-L2 discitis with associated early osteomyelitis involving the adjacent L1 and L2 vertebral bodies. 2. Secondary small right psoas muscle abscess. 3. Otherwise mild lumbar and lower thoracic spondylosis. (3) Septic shock: Code(s): A41.9 - Sepsis, unspecified organism; R65.21 - Severe sepsis with septic shock Status: Acute Assessment and Plan: Patient presented with picture consistent with sepsis secondary to UTI pyelonephritis and possible cholecystitis Blood culture growing Gram-negative bacilli. She has history of ESBL. Urine cultures negative till now CT abdomen and pelvis does not show any renal stones or hydronephrosis CT does show gallstones with gallbladder wall thickening although patient does not have any tenderness on exam in right upper quadrant (4) Acute respiratory failure with hypoxia: Code(s): J96.01 - Acute respiratory failure with hypoxia Status: Acute Assessment and Plan: Weaned off oxygen (5) Acute bacterial pyelonephritis: Code(s): N10 - Acute pyelonephritis; B96.89 - Other specified bacterial agents as the cause of diseases classified elsewhere Status: Acute Assessment and Plan: On IV meropenem BC shows ESBL [place]pt [place] [facility] [place] [id number] [place] (6) Cholelithiasis: Qualifiers: Biliary obstruction: without biliary obstruction Cholecystitis presence: without cholecystitis Cholelithiasis location: gallbladder Qualified Code(s): K80.20 - Calculus of gallbladder without cholecystitis without obstruction Code(s): K80.20 - Calculus of gallbladder without cholecystitis without obstruction Status: Acute Assessment and Plan: CT scan shows gallstones which patient was aware of for last 4 years but now has elevated liver enzyme MRCP is ordered to evaluate biliary tree which was delayed as patient was on vasopressor yesterday (7) Elevated liver enzymes: Code(s): R74.8 - Abnormal levels of other serum enzymes Status: Acute Assessment and Plan: See above DS: Summary Hospital Course Hospital Course: 77-year-old female patient who has tree of Guillain-[place].? She currently walks with a cane.? The patient came into the emergency room today for complaints of severe lower back pain that started 3-4 days ago.? She stated it is more on the right side than on the left.? The patient has difficulty ambulating with her cane and has not been able to ambulate for the past 3 days to the pain.? The patient has lower extremity weakness due to the Guillain- [place].? She denied any numbness or tingling to her lower extremities.? The patient received her normal cortisone shot by her primary care doctor this past .? She stated it did not help and it did not last long.? She has had no fever chills.? Her white count is noted to be 11.5.? H&H is 11.2 and 34.9.? Her sodium is 131.? Her glucose is 139.? Total bilirubin 3.2, AST 73, ALT 54, and alkaline phosphatase 311.? C reactive protein 38.3.? Urine is cloudy 2+ protein 2+ blood 1+ urine bilirubin leukocyte esterase 2
--- NOTE | 2023-04-11 13:33 | PM.TDS ---
Transfer Discharge Sum: Prov Provider Date of admission: 04/06/23 14:02 Primary care physician: Willa Ruff MD Admitting clinician: Junior Molina MD Consults: 04/06/23 Consult to Physician Routine Comment: Consulting Provider: Samy Truong Reason for consultation: ICU Has provider been notified: Yes 04/07/23 Consult to Physician Routine Comment: Consulting Provider: Alexsander Conroy call center analyst/MD group to consult: GI Reason for consultation: Cholelithiasis, elevated liver enzymes Has provider been notified: Yes 04/10/23 Consult to Physician Routine Comment: spoke to office @1152 (,) Consulting Provider: Zane Lozano call center analyst/MD group to consult: Reason for consultation: discitis L1 Has provider been notified: Yes DS: Admitting Diagnosis Discharge Date 04/11/2023 Admitting Diagnosis Back pain DS: Discharge Diagnosis Discharge Diagnosis (1) Other spondylosis with radiculopathy, lumbosacral region: Code(s): M47.27 - Other spondylosis with radiculopathy, lumbosacral region Status: Acute Assessment and Plan: Patient has chronic back pain and CT scan shows severe degenerative joint disease Continue pain control Will consult PT and OT (2) Discitis of lumbar region: Code(s): M46.46 - Discitis, unspecified, lumbar region Status: Acute Assessment and Plan: MRCP resulted discitis at L1 MRI L spine ordered Neurosurgery on board or curbside discussion as per discussion Pt will benefit from transfer to facility with [facility] iv [facility] Transfer line contacted for transfer Pt is started on iv vancomycin yesterday MRI spine shows- - L1-L2 discitis with associated early osteomyelitis involving the adjacent L1 and L2 vertebral bodies. 2. Secondary small right psoas muscle abscess. 3. Otherwise mild lumbar and lower thoracic spondylosis. (3) Septic shock: Code(s): A41.9 - Sepsis, unspecified organism; R65.21 - Severe sepsis with septic shock Status: Acute Assessment and Plan: Patient presented with picture consistent with sepsis secondary to UTI pyelonephritis and possible cholecystitis Blood culture growing Gram-negative bacilli. She has history of ESBL. Urine cultures negative till now CT abdomen and pelvis does not show any renal stones or hydronephrosis CT does show gallstones with gallbladder wall thickening although patient does not have any tenderness on exam in right upper quadrant (4) Acute respiratory failure with hypoxia: Code(s): J96.01 - Acute respiratory failure with hypoxia Status: Acute Assessment and Plan: Weaned off oxygen (5) Acute bacterial pyelonephritis: Code(s): N10 - Acute pyelonephritis; B96.89 - Other specified bacterial agents as the cause of diseases classified elsewhere Status: Acute Assessment and Plan: On IV meropenem BC shows [place] [facility] [id number] [place] (6) Cholelithiasis: Qualifiers: Biliary obstruction: without biliary obstruction Cholecystitis presence: without cholecystitis Cholelithiasis location: gallbladder Qualified Code(s): K80.20 - Calculus of gallbladder without cholecystitis without obstruction Code(s): K80.20 - Calculus of gallbladder without cholecystitis without obstruction Status: Acute Assessment and Plan: CT scan shows gallstones which patient was aware of for last 4 years but now has elevated liver enzyme MRCP is ordered to evaluate biliary tree which was delayed as patient was on vasopressor yesterday (7) Elevated liver enzymes: Code(s): R74.8 - Abnormal levels of other serum enzymes Status: Acute Assessment and Plan: See above Transfer Discharge Sum: Med Medications Active and Home Medications: Home Medications multivitamin 1 tablet PO DAILY 08/06/19 [History Confirmed 04/06/23] anastrozole 1 mg tablet 1 mg PO DAILY
[2023-04-11 14:00] VITALS: BP 120/54; PULSE 79; RESP 20; TEMP 37; O2SAT 91
[2023-04-11] MEDS: ERTAPENEM 1 GM/NS 50 ML 1 GM/50 ML BAG IVPB (17:00)
--- NOTE | 2023-04-11 17:24 | WPDNEUROSGCN ---
Assessment and Plan Assessment and plan (1) Discitis of lumbar region: Code(s): M46.46 - Discitis, unspecified, lumbar region Status: Acute (2) Bacteremia due to Gram-negative bacteria: Code(s): R78.81 - Bacteremia Status: Acute Plan Ms. Rashid Hoskins is a 77-year-old female with history of Guillain-Bradford syndrome who presented to the hospital on April 06 with several days of severe lower back pain who was found to have L1-2 osteomyelitis diskitis on an MRCP. She has since had dedicated imaging of her lumbar spine which appears to show epidural abscess versus phlegmon at this level as well causing [id number] stenosis. She has reasonably good strength in her lower extremities with exception of pain limited weakness of bilateral quadriceps. Dr. Lozano had already spoken with her attending physician over the phone yesterday that this patient would benefit from an inpatient infectious disease consult, and it seems that transfer is currently being arranged. I agree that this is the best course of action given her incomplete treatment for her ESBL UTI last month and fairly extensive spread of her infection. I do not think that she needs any urgent neurosurgical intervention at this time. The patient and her are aware that transfer is being arranged, and there happy to be able to get more specialized care elsewhere. Consult date: 04/11/23 HPI: Lynne Alee Hoskins is a 77 year old female with history of polio as a child, breast cancer, Guillain-Bradford syndrome who presented to the hospital several days ago with severe back pain. Last month, she was diagnosed with an ESBL UTI for which she was treated with cefidnir for 5 days. Around 04/02, she started developing significant low back pain. She went to her primary care physician and then to the ER where workup was positive for ESBL UTI and bacteremia. An MRCP was performed which showed osteomyelitis and diskitis at L1-2 for which Neurosurgery is consulted. Currently, she has fairly significant pain in her lower back. Pain is constant and can intermittently radiate into the left leg or the right leg. She denies any new paresthesias in legs. She has essentially bedbound since admission and feels generally weak because of this. Of note, she was diagnosed with Guillain-Bradford 2019 finishing chemotherapy her breast cancer. She ambulates with a cane since that diagnosis. She has had a Mora catheter in place but denies bowel or bladder changes prior to this admission. Review of Systems Review of Systems: All systems reviewed & are unremarkable except as noted in HPI and below PMFSH Past Medical History Medical History (Updated 04/09/23 @ 14:13 by Alexsander Conroy MD) Acquired valgus deformity of right ankle Advance care planning Arthritis Arthritis of ankle Bacteremia due to Gram-negative bacteria Degenerative arthritis of right knee Degenerative joint disease, ankle, foot, toe Discitis of lumbar region Estrogen receptor positive status (ER+) (~2017) GBS (Guillain [place] syndrome) Guillain-[place]ford H/O poliomyelitis History of hypokalemia (~2018) History of vaginal delivery (~1961) History of vaginal delivery (~1967) Leg weakness, bilateral (~2017) Malignant tumor of breast Negative depression screening 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
== END 2023-04-11 18:30 | disposition short-term general hospital (02) | DRG 871 ==
LOC: ANHED 14:08 → ANHICU 14:55 → ANHIMU 04-08 17:33 → ANH3MEDSUR 04-09 16:26
PROVIDERS: Family Medicine; Internal Medicine; Nurse Practitioner Family; Admitting Provider Internal Medicine; Emergency Provider Preventive Medicine Aerospace Medicine; PCP Family Medicine; Visit Provider Hospitalist
DX: A41.51 Sepsis due to Escherichia coli [E. coli] (principal); J96.01 Acute respiratory failure with hypoxia; Z16.12 Extended spectrum beta lactamase (ESBL) resistance; N10 Acute pyelonephritis; M46.26 Osteomyelitis of vertebra, lumbar region; F32.1 Major depressive disorder, single episode, moderate; M46.46 Discitis, unspecified, lumbar region; K80.20 Calculus of gallbladder without cholecystitis without obstruction; K57.30 Diverticulosis of large intestine without perforation or abscess without bleeding; G65.0 Sequelae of Guillain-Barre syndrome; M62.81 Muscle weakness (generalized); M17.11 Unilateral primary osteoarthritis, right knee; M19.079 Primary osteoarthritis, unspecified ankle and foot; M47.26 Other spondylosis with radiculopathy, lumbar region; G89.29 Other chronic pain; G62.9 Polyneuropathy, unspecified; G14 Postpolio syndrome; F41.1 Generalized anxiety disorder; Z96.659 Presence of unspecified artificial knee joint; Z85.3 Personal history of malignant neoplasm of breast; Z79.811 Long term (current) use of aromatase inhibitors
CPT/HCPCS: 36415; 71045; 72131; 72158; 74177; 74183; 76376; 80053; 81001; 82310; 82533; 82550; 83605; 83735; 83880; 84100; 84132; 84145; 85025; 85027; 85652; 86140; 87040; 87077; 87086; 87088; 87186; 93306; 96361; 96365; 96375; 97110; 97161; 97166; 97530; 99285; A9270; A9577; C1751; J0613; J0696; J1335; J1650; J1720; J1940; J2185; J2270; J2405; J3370; J3475; J3480; J7030; J7050; P9047; Q9967

== ENCOUNTER 2023-06-20 13:02 | Outpatient (CLI) | payer MEDICARE, SELFPAY ==
[2023-06-20 14:06] LABS: Anion Gap 11 mmol/L (8-16); Blood Urea Nitrogen 11 mg/dL (7-17); Calcium 8.9 mg/dL (8.4-10.2); Carbon Dioxide 21 mmol/L (22-30); Chloride 108 mmol/L (98-107); Estimated Glomerular Filt Rate > 60; Glucose 98 mg/dL (65-110); Sodium 140 mmol/L (137-145)
== END 2023-06-20 13:03 | disposition home or self-care (01) ==
PROVIDERS: PCP Family Medicine; Visit Provider Physician Assistant
DX: E87.6 Hypokalemia (principal)
CPT/HCPCS: 36415; 80048

== ENCOUNTER 2023-09-26 11:12 | Outpatient (CLI) | payer MEDICARE, SELFPAY ==
[2023-09-26 12:20] LABS: Alanine Aminotransferase 17 U/L (6-35); Albumin Level 4.4 g/dL (3.5-5.1); Alkaline Phosphatase 98 U/L (38-126); Anion Gap 8 mmol/L (8-16); Aspartate Amino Transferase 25 U/L (14-36); Bilirubin,Total 1.2 mg/dL (0.2-1.3); Blood Urea Nitrogen 14 mg/dL (7-17); Calcium 9.3 mg/dL (8.4-10.2); Carbon Dioxide 27 mmol/L (22-30); Chloride 104 mmol/L (98-107); Cholesterol 230 mg/dL (0-200); Estimated Glomerular Filt Rate > 60; Glucose 103 mg/dL (65-110); HDL Direct 63 mg/dL; Potassium 3.7 mmol/L (3.4-5.0); Sodium 139 mmol/L (137-145); Triglycerides 73 mg/dL (<150)
[2023-09-26 12:30] LABS: LDL Cholesterol Direct 111 mg/dL
[2023-09-26 12:42] LABS: Hemoglobin A1C 5.5 % (<5.7)
== END 2023-09-26 11:13 | disposition home or self-care (01) ==
PROVIDERS: PCP Family Medicine; Visit Provider Physician Assistant
DX: R74.01 Elevation of levels of liver transaminase levels (principal); R79.89 Other specified abnormal findings of blood chemistry; Z13.220 Encounter for screening for lipoid disorders; R73.09 Other abnormal glucose
CPT/HCPCS: 36415; 80053; 80061; 83036

== ENCOUNTER 2023-09-26 15:14 | Emergency (ER) | payer MEDICARE, SELFPAY ==
[2023-09-26 15:33] VITALS: BP 107/60; PULSE 95; RESP 18; TEMP 36.4; O2SAT 99
--- NOTE | 2023-09-26 15:41 | ED.GENADULT ---
HPI - General Adult General Chief complaint: Upper Respiratory Infection Stated complaint: congestion,sorethroat Source: patient, RN notes reviewed and old records reviewed Mode of arrival: ambulatory Limitations: no limitations History of Present Illness HPI narrative: 78-year-old female [facility] with complaints sore throat, cough, congestion, fever this started yesterday. Patient states highest fever was 101. Patient states ibuprofen reduce fever. Patient denies dizziness, weakness, chest pain, vomiting, wheezing. MD complaint: sore throat, cough/congestion Onset (ago): day(s) (1-2) Related Data Home Medications Medication Instructions Recorded Confirmed multivitamin 1 tablet PO DAILY 08/06/19 09/26/23 anastrozole 1 mg tablet 1 mg PO DAILY 09/08/19 09/26/23 cyanocobalamin (vitamin B-12) 1,000 mcg PO DAILY 09/08/19 09/26/23 1,000 mcg capsule cholecalciferol (vitamin D3) 10 10 mcg PO BID 06/03/20 09/26/23 mcg (400 unit) capsule denosumab 60 mg/mL subcutaneous 60 mg subcut [id number] 05/14/22 09/26/23 syringe (Prolia) hydrocortisone 2.5 % topical cream 1 applic topical BID PRN Rash 03/06/23 09/26/23 doxycycline hyclate 100 mg capsule 100 mg DIRECTED 09/26/23 09/26/23 Allergies Allergy/AdvReac Type Severity Reaction Status Date / Time No Known Allergies Allergy Verified 08/05/23 14:37 Review of Systems Constitutional: Constitutional: Reports no additional constitutional complaints, Reports body ache(s), Denies chills, Denies fatigue, Reports fever(s) and Denies headache(s) Eyes: Eyes: Reports no additional eye complaints and Denies blurry vision ENT: Reports system reviewed and no additional complaints, except as documented, Denies vertigo, Denies dizziness, Denies ear discharge, Denies otalgia, Denies facial pain, Denies headache(s), Reports nasal congestion, Reports nasal discharge, Denies sinus pain, Denies sinus pressure and Reports sore throat Cardiovascular: Cardiovascular: Reports no additional cardiovascular complaints, Denies chest pain, Denies chest pain at rest, Denies rapid heart rate and Denies dyspnea Respiratory: Respiratory: Reports no additional respiratory complaints, Reports chest congestion, Reports cough, Denies pain on inspiration, Denies pain with cough and Denies dyspnea Gastrointestinal: Gastrointestinal: Denies abdominal pain, Denies diarrhea, Denies nausea and Denies vomiting Integumentary/Breasts: Skin/Breast: Denies rash Neurologic: Reports system reviewed and no additional complaints, except as documented, Denies vertigo, Denies dizziness and Denies headache(s) Endocrine: Endocrine: Denies fatigue PMFSH Past Medical History Medical History Acquired valgus deformity of right ankle Advance care planning Arthritis Arthritis of ankle Bacteremia due to Gram-negative bacteria Degenerative arthritis of right knee Degenerative joint disease, ankle, foot, toe Discitis of lumbar region Estrogen receptor positive status (ER+) (~2017) GBS (Guillain [place] syndrome) Guillain-[place] H/O poliomyelitis History of hypokalemia (~2018) History of vaginal delivery (~1961) History of vaginal delivery (~1967) Leg weakness, bilateral (~2017) Malignant tumor of breast Negative depression screening 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
== END 2023-09-26 16:21 | disposition home or self-care (01) ==
PROVIDERS: Emergency Provider Registered Nurse; PCP Family Medicine
DX: U07.1 COVID-19 (principal); Z79.899 Other long term (current) drug therapy
CPT/HCPCS: 36415; 80053; 80061; 83036; 87081; 87426; 87804; 87880; 99213; C9803; G0463

== ENCOUNTER 2023-11-11 15:37 | Emergency (ER) | payer MEDICARE, SELFPAY ==
--- NOTE | ~2023-11-11 | XR_ITS ---
EXAM: XR wrist LT min 3V DATE: 11/11/2023 16:16 HISTORY: FALL 3 DAYS AGO, WRIST PAIN . COMPARISON: None available. FINDINGS: Normal mineralization. Mildly comminuted, mildly impacted, intra-articular fracture of the distal left radius. No lytic or blastic lesion. Moderate scattered arthritic changes. No erosion or periosteal change. Wrist soft tissue swelling. IMPRESSION: Mildly comminuted, mildly impacted, intra-articular fracture of the distal left radius. Reviewed, dictated and finalized at location K. NESS ASST
--- NOTE | 2023-11-11 15:54 | ED.UPPEXIN ---
HPI - Extremity Injury (Upper) General Chief Complaint: Extremity Injury, Upper Stated Complaint: rt wrist injury Time Seen by Provider: 11/11/23 16:30 Source: patient and RN notes reviewed Mode of arrival: ambulatory Limitations: no limitations History of Present Illness HPI narrative: 70-year-old female presents concern for right wrist injury. Reports on Saturday she fell backwards and caught herself. Reports she has had wrist pain and swelling with slight bruising. She reports taking Tylenol and Motrin. Reports pain is minimal at rest and worsens with throat range of motion MD complaint: injury to: left and wrist Related Data Home Medications Medication Instructions Recorded Confirmed multivitamin 1 tablet PO DAILY 08/06/19 11/07/23 anastrozole 1 mg tablet 1 mg PO DAILY 09/08/19 11/07/23 cyanocobalamin (vitamin B-12) 1,000 mcg PO DAILY 09/08/19 11/07/23 1,000 mcg capsule cholecalciferol (vitamin D3) 10 10 mcg PO BID 06/03/20 11/07/23 mcg (400 unit) capsule denosumab 60 mg/mL subcutaneous 60 mg subcut [id number] 05/14/22 11/07/23 syringe (Prolia) hydrocortisone 2.5 % topical cream 1 applic topical BID PRN Rash 03/06/23 11/07/23 doxycycline hyclate 100 mg capsule 100 mg DIRECTED 09/26/23 11/07/23 Allergies Allergy/AdvReac Type Severity Reaction Status Date / Time No Known Allergies Allergy Verified 11/11/23 15:52 Review of Systems Review of Systems: CONSTITUTIONAL: Denies malaise, chills, sweats, or fever. SKIN: Denies rash or itching, open skin, laceration, abrasion, redness, warmth MUSCULOSKELETAL: Reports left wrist pain NEUROLOGIC: Denies numbness, weakness All systems reviewed & are unremarkable except as noted in HPI and below PMFSH Past Medical History Medical History Acquired valgus deformity of right ankle Advance care planning Arthritis Arthritis of ankle Bacteremia due to Gram-negative bacteria Degenerative arthritis of right knee Degenerative joint disease, ankle, foot, toe Discitis of lumbar region Estrogen receptor positive status (ER+) (~2017) GBS (Guillain [place] syndrome) Guillain-[place] H/O poliomyelitis History of hypokalemia (~2018) History of vaginal delivery (~1961) History of vaginal delivery (~1967) Leg weakness, bilateral (~2017) Malignant tumor of breast Negative depression screening 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ly history of elevated blood lipids Family history of cardiovascular disease AAA (abdominal aortic aneurysm, ruptured) Sibling Hypertension Family history of diabetes mellitus in first degree relative Father Family history of osteoarthritis Family history of heart disease in male family member before age 55 Patient's father is Family history of cardiovascular disease Family history of arthritis Other Arthritis Diabetes mellitus Heart disease Social History Social History Social History: She is and has 2 children. 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 She is a lifelong nonsmoker. She does not use any alcohol marijuana or illicit drugs. Code status full code Smoking status: Never smoker Second hand tobacco smoke exposure: No Additional smoking assessment commen
[2023-11-11 16:04] VITALS: BP 144/78; PULSE 80; RESP 16; TEMP 36.6; O2SAT 100
== END 2023-11-11 16:49 | disposition home or self-care (01) ==
PROVIDERS: Emergency Provider Nurse Practitioner; PCP Family Medicine
DX: S52.572A Other intraarticular fracture of lower end of left radius, initial encounter for closed fracture (principal); W19.XXXA Unspecified fall, initial encounter; Z85.3 Personal history of malignant neoplasm of breast; Z90.12 Acquired absence of left breast and nipple; Z96.652 Presence of left artificial knee joint
CPT/HCPCS: 29125; 73110; 99214; A4565; G0463

== ENCOUNTER 2023-11-12 15:36 | Outpatient (CLI) | payer MEDICARE, SELFPAY ==
--- NOTE | ~2023-11-12 | MM_ITS ---
EXAMINATION: MM screening nicole BI w kate HISTORY: Screening TECHNIQUE: Craniocaudal and mediolateral oblique 3-D tomosynthesis images were obtained and synthetic 2-D images were generated. CAD analysis was submitted and interpreted. COMPARISON: Comparison to multiple prior studies sequentially, with oldest reviewed study dated 07/15. BREAST PARENCHYMAL COMPOSITION: There are scattered areas of fibroglandular density. FINDINGS: There is no evidence of suspicious mass, calcification, or architectural distortion to sugg est malignancy in either breast. There has been no suspicious interval change. IMPRESSION: 1. No mammographic evidence of malignancy. 2. Recommend routine screening mammography in one year. BI-RADS Category 1: Negative Reviewed, dictated and finalized at location A. 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
== END 2023-11-12 15:37 | disposition home or self-care (01) ==
PROVIDERS: PCP Family Medicine; Visit Provider Internal Medicine Hematology & Oncology
DX: Z12.31 Encounter for screening mammogram for malignant neoplasm of breast (principal)
CPT/HCPCS: 77063; 77067

== ENCOUNTER 2023-11-24 11:34 | Emergency (ER) | payer MEDICARE, SELFPAY ==
[2023-11-24 11:50] VITALS: BP 125/75; PULSE 98; RESP 18; TEMP 36.1; O2SAT 97
--- NOTE | 2023-11-24 12:17 | ED.SKABFB ---
HPI - Skin/Abscess/Foreign Bdy General Chief complaint: Skin/Abscess/Foreign Body Stated complaint: rash on lower leg Time Seen by Provider: 11/24/23 12:17 Source: patient Mode of arrival: ambulatory Limitations: no limitations History of Present Illness HPI narrative: 78-year-old female presents with complaint of redness, warmth and swelling to right lower extremity for 3 days. Patient concerned for infection. Denies injury. No history of cellulitis. All systems reviewed and negative except as noted above. Related Data Home Medications Medication Instructions Recorded Confirmed multivitamin 1 tablet PO DAILY 08/06/19 11/24/23 anastrozole 1 mg tablet 1 mg PO DAILY 09/08/19 11/24/23 cyanocobalamin (vitamin B-12) 1,000 mcg PO DAILY 09/08/19 11/24/23 1,000 mcg capsule cholecalciferol (vitamin D3) 10 10 mcg PO BID 06/03/20 11/24/23 mcg (400 unit) capsule denosumab 60 mg/mL subcutaneous 60 mg subcut [id number] 05/14/22 11/24/23 syringe (Prolia) hydrocortisone 2.5 % topical cream 1 applic topical BID PRN Rash 03/06/23 11/24/23 Allergies Allergy/AdvReac Type Severity Reaction Status Date / Time No Known Allergies Allergy Verified 11/24/23 11:55 Review of Systems Review of Systems: CONSTITUTIONAL: Denies fever, chills, or sweats. EYES: Denies visual changes, redness, or discharge. ENT: Denies rhinorrhea, congestion, sore throat, or otalgia. CARDIOVASCULAR: Denies chest pain, palpitations, or edema. RESPIRATORY: Denies cough or dyspnea. GASTROINTESTINAL: Denies abdominal pain, nausea, vomiting, or diarrhea. GENITOURINARY: Denies dysuria or hematuria. SKIN: Denies rash or itching. Reports redness warmth and swelling to right lower extremity. MUSCULOSKELETAL: Denies back pain, joint pain, or myalgia. NEUROLOGIC: Denies headache, numbness, or weakness. PSYCHIATRIC: Denies anxiety or depression. All other systems reviewed are negative, except as documented in HPI. [facility] Past Medical History Medical History Acquired valgus deformity of right ankle Advance care planning Arthritis Arthritis of ankle Bacteremia due to Gram-negative bacteria Degenerative arthritis of right knee Degenerative joint disease, ankle, foot, toe Discitis of lumbar region Estrogen receptor positive status (ER+) (~2017) GBS (Guillain [place] syndrome) Guillain-[place] H/O poliomyelitis History of hypokalemia (~2018) History of vaginal delivery (~1961) History of vaginal delivery (~1967) Leg weakness, bilateral (~2017) Malignant tumor of breast Negative depression screening 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ly history of elevated blood lipids Family history of cardiovascular disease AAA (abdominal aortic aneurysm, ruptured) Sibling Hypertension Family history of diabetes mellitus in first degree relative Father Family history of osteoarthritis Family history of heart disease in male family member before age 55 Patient's father is Family history of cardiovascular disease Family history of arthritis Other Arthritis Diabetes mellitus Heart disease Social History Social History (Updated 11/18/23 @ 12:57 by VIKAS Apodaca) Social History: She is and has 2 children. 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
== END 2023-11-24 12:30 | disposition home or self-care (01) ==
PROVIDERS: Emergency Provider Nurse Practitioner Family; PCP Family Medicine
DX: L03.115 Cellulitis of right lower limb (principal); Z85.3 Personal history of malignant neoplasm of breast; M17.11 Unilateral primary osteoarthritis, right knee; G62.9 Polyneuropathy, unspecified; Z92.21 Personal history of antineoplastic chemotherapy
CPT/HCPCS: 99213; G0463

== ENCOUNTER 2023-12-09 13:52 | Outpatient (CLI) | payer MEDICARE, SELFPAY ==
[2023-12-09 14:18] LABS: Basophils Absolute Auto 0.1 K/mm3 (0.0-0.1); Basophils Percent Auto 0.7 % (0.2-1.2); Eosinophils Absolute Auto 0.2 K/mm3 (0-0.3); Eosinophils Percent Auto 1.8 % (0-4.4); Hematocrit 44.5 % (37.0-47.0); Hemoglobin 13.5 g/dL (12.0-15.0); Immature Granulocyte Absolute 0.03 K/mm3 (0.00-0.031); Immature Granulocyte Percent A 0.4 % (0-0.5); Lymphocytes Absolute Auto 1.83 K/mm3 (0.9-3.2); Lymphocytes Percent Auto 22.3 % (18.3-44.2); Mean Corpuscular HGB Conc 30.3 g/dl (32-36); Mean Corpuscular Volume 92.1 fl (80-100); Mean Platelet Volume 10.3 fl (7.4-10.4); Monocytes Absolute Auto 0.6 K/mm3 (0.1-0.6); Monocytes Percent Auto 7.7 % (2.6-8.5); Neutrophils Absolute Auto 5.5 K/mm3 (1.3-6.7); Neutrophils Percent Auto 67.1 % (45.5-73.1); Platelet Count Result 294 k/mm3 (150-375); Red Blood Count 4.83 M/mm3 (4.2-5.4); Red Cell Distribution Width 15.1 % (11.5-14.5); White Blood Count 8.2 K/mm3 (4.5-10.0)
== END 2023-12-09 13:53 | disposition home or self-care (01) ==
PROVIDERS: PCP Family Medicine; Referring Provider Internal Medicine Hematology & Oncology; Visit Provider Physician Assistant
DX: R53.83 Other fatigue (principal); Z92.21 Personal history of antineoplastic chemotherapy
CPT/HCPCS: 36415; 85025

== ENCOUNTER 2024-05-21 11:00 | Outpatient (RCR) | payer MEDICARE, SELFPAY ==
--- NOTE | 2024-04-10 12:05 | OPREHPOC ---
Outpatient Therapy Plan of Care This is a Multidisciplinary Plan of Care that may contain components documented by all disciplines (PT, OT, and ST.) PT Problem 1 PT Problem #1 Knowledge Deficit PT Goal 1 Goal *indep with HEP Target Visit 10 PT Problem 2 PT Problem #2 Pain PT Goal 1 Goal 1* pain rating at worst of 4/10 2* Oswestry self rating of 26% limitation in activity level 3* supine L hip flexion without an increase in pain Target Visit 10 PT Problem 3 PT Problem #3 Impaired Strength PT Goal 1 Goal increase strength of LEs to improve mobility 1* sit to supine without use of UE to move L LE 2* supine R SLR x 20 reps 3* supine L SLR x 15 reps 4* 2 minute walking test distance of 200' with cane
--- NOTE | 2024-04-10 12:06 | PTOPEVAL1 ---
Assessment and note entered by Dory Chester, PT Evaluation Information Assessment Status Evaluation Diagnosis back pain, weakness Onset March 2023 Subjective Information hospitalized in March 2023 with sepsis, blood infection, pneumonia,hospitalized for 2 weeks, intense back pain and weakness of legs; history of low back pain, worse now, into L hip and leg; MRI report states lumbar DDD; Activity: use cane all time; use scooter for distances more than 1 block; no falls; doing lying down and sitting leg exercises; home with ; have wheeled walker, but not use it; Reported Pain Level Pain Score Self Report Additional Pain Score Comments pain range in the past week: 2-6/10 bilateral low back, into L groin and quad to knee; increase pain: walking 1 block; bending over and doing house work decrease pain: sit, rest, ibuprofen, celebrex PRN does heavy home tasks, vacuum; have pain in hands and wrist due to arthritis; Assessment PT Clinical Summary Lynne has the diagnosis of lumbar spondylosis, L leg pain and weakness. Her medical history includes Guillan [place] syndrome, polio with R LE residual weakness, R TKR and recent hospitalization with sepsis and pneumonia. She uses a cane for mobility and her assists with home tasks. Self assessment Oswestry rating of 36% limitation. MRI report states lumbar DDD. She has not had an xray of her L hip. With the evaluation: poor standing position of trunk and hips; 2 minute walking test distance of 125' with cane; weakness of L LE due to pain over quad and lateral hip; Skilled PT services are indicated for therapeutic exercises to increase strength and mobility, modalities for pain and education for HEP and positioning. Plan of Care Interventions Electrical Stimulation,Hot Pack/Cold Pack,Manual Therapy,Neuro Re-education,Patient Education,Therapeutic Activities,Therapeutic Exercise,Ultrasound,Other Other Interventions annalisaing, IASTM
--- NOTE | 2024-05-21 11:44 | PTOPDC ---
Assessment and note entered by Dory Chester, PT Discharge Report Assessment Status Discharge Diagnosis back pain, weakness Onset March 2023 Subjective Information better since coming for therapy--pain in groin and front of leg is gone; feel stronger when walking not afraid of falling when I step down; more reps with the exercises--do them daily; doing exercises in the water also--able to get in/ out of the pool with ladder by myself, at first had to have a boost getting out of the pool; is doing laundry, cooking and home tasks; Reported Pain Level Pain Score Self Report Additional Pain Score Comments pain range in the past week: 0-2/10; R and L low back, L lateral hip; muscles sore and tender; Assessment PT Clinical Summary Lynne has received 10 PT sessions. Compared to the initial evaluation: pain rating from 2-6/10 to 0-2/10; self assessment Oswestry rating from 36% to % limitation in activity; increase strength with reps of R and L LE mat and sitting exercises, but continues to have weakness of R hip due to previous polio and issues; increase 2 minute walking distance from 125' to 180'; education completed for HEP and safety with motility' The goals were partially met. Discharge PT services. She is to continue with her HEP and monitor back pain with home activities with rest PRN. Plan of Care PT Services Indicated No
== END 2024-05-21 13:38 | disposition home or self-care (01) ==
LOC: ANHPT 11:00
PROVIDERS: PCP Family Medicine; Visit Provider Physician Assistant
DX: M79.605 Pain in left leg (principal); M47.816 Spondylosis without myelopathy or radiculopathy, lumbar region; R26.81 Unsteadiness on feet
CPT/HCPCS: 97110; 97116; 97140; 97161; 97530

== ENCOUNTER 2024-09-22 14:36 | Outpatient (CLI) | payer MEDICARE, SELFPAY ==
--- NOTE | ~2024-09-22 | DEXA_ITS ---
Bone Density Report Name: JEFFERY ALONZO Age: 79 Sex: Female Ethnicity: White Date of : 1945 Indication: postmenopausal osteoporosis; monitoring treatment; height loss; cancer; Referring Provider: MOISÉS GALLEGOS Study: Bone densitometry was performed. Exam Date: September 22, 2024 Accession number: [id number] Bone Density: Region BMD T-score Z-score Classification AP Spine(L1-L4) 1.273 2.1 4.7 Normal Femoral Neck (Left) 0.716 -1.2 1.1 Osteopenia Total Hip (Left) 0.817 -1.0 1.0 Normal Femoral Neck (Right) 0.617 -2.1 0.2 Osteopenia Total Hip (Right) 0.759 -1.5 0.5 Osteopenia Total Hip Mean 0.788 -1.3 0.8 Osteopenia World Health Organization criteria for BMD impression classify patients as: Normal (T-score at or above -1.0), Osteopenia (T-score between -1.0 and -2.5), or Osteoporosis (T-score at or below -2.5). 10-year Fracture Risk: FRAX not reported because: Treated for osteoporosis Previous Exams: Region Exam Age BMD T-score BMD Change BMD Change Date g/cm2 vs Baseline vs Previous AP Spine (L1-L4) 09/22/2024 79 1.273 2.1 0.373 (41.4%)* 0.373 (41.4%)* 01/21/2020 74 0.900 -1.3 Total Hip(Left) 09/22/2024 79 0.817 -1.0 0.173 (26.9%)* 0.126 (18.2%)* 09/20/2022 77 0.691 -2.1 0.047 (7.3%)* 0.047 (7.3%)* 01/21/2020 74 0.644 -2.4 Total Hip(Right) 09/22/2024 79 0.759 -1.5 0.152 (25.1%)* 0.138 (22.2%)* 09/20/2022 77 0.621 -2.6 0.014 (2.4%) 0.014 (2.4%) 01/21/2020 74 0.606 -2.8 *Denotes significance at 95% confidence level, LSC for AP Spine = 0.022 g/cm2, LSC for Total Hip = 0.027 g/cm2 Clinical Information Provided by Patient: Is being treated for osteoporosis Has used the following medications: Prolia (i.e. denosumab), Vitamin D, Calcium, anastrozole Has the following medical conditions: Cancer, polio 5 years old Patient maximum height was 60 Menopause Age: 53 No regular weight bearing exercise Drinks caffeinated beverages Onset of menses at age 11 Number of children 2 Impression: The patient has low bone mass, based on the Right Femoral Neck T-score. No significant bone loss was observed. Discussion: PATIENT UNDER TREATMENT WITH NO SIGNIFICANT BMD LOSS SINCE LAST EXAM. In an untreated patient, BMD typically declines with age. A lack of decline or gain is usually a sign that treatment is efficacious and fracture risk is reduced. It is important to ask patients whether they are taking their medications and to encourage continued and appropriate compliance with their osteoporosis therapies to reduce fracture risk. It is also important to review their risk factors and encourage appropriate calcium and vitamin D intakes, exercise, fall prevention and other lifestyle measures. Follow-Up: Consider a repeat BMD and Vertebral Fracture Assessment (VFA) exam in 2 years or sooner if medically necessary, to reassess this patient's status. Reported by: RADHA on 09/22/2024 3:41:00 PM. Reviewed, dictated and finalized at location [facility]
== END 2024-09-22 14:37 | disposition home or self-care (01) ==
LOC: ANHIMG 14:37
PROVIDERS: PCP Family Medicine; Visit Provider Internal Medicine Hematology & Oncology
DX: M81.0 Age-related osteoporosis without current pathological fracture (principal)
CPT/HCPCS: 77080

== ENCOUNTER 2025-03-26 07:45 | Outpatient (CLI) | payer MEDICARE, SELFPAY ==
--- NOTE | ~2025-03-26 | MR_ITS ---
MRI of the lumbar spine Clinical History: Inflammatory polyneuropathy Technique: Axial T2-weighted and gradient images, and sagittal T1-weighted, T2-weighted, and STIR syd ges were acquired. Findings: No fracture present. There is 7 mm retrolisthesis of L1 over L2. No suspicious bone marrow signal abnormality seen. At L1-L2, there is severe degenerative disc narrowing without significant disc bulge or herniation. T here is advanced facet arthropathy. No central canal stenosis. There is severe bilateral neural will inal narrowing. At L2-L3, there is moderate degenerative distended. There is mild disc bulge with moderate facet arth ropathy. No central canal stenosis. There is moderate bilateral neural foraminal narrowing. L3-L4, there is moderate degenerative disc narrowing. There is mild disc bulge and severe facet arthr opathy. No central canal stenosis. There is moderate bilateral neural foraminal narrowing, left worse than right. At L4-L5, there is severe facet arthropathy without disc bulge or herniation. No spinal canal stenosi s or neural foraminal narrowing. At L5-S1, there is no disc bulge or herniation. There is severe facet arthropathy. No spinal canal st enosis or neural foraminal narrowing. Paravertebral soft tissues are unremarkable. Impression: 7 mm retrolisthesis of L1 over L2. Advanced degenerative spondylosis at L1-L2, L2-L3, L3-L4. Reviewed, dictated and finalized at [facility]. Impression: 7 mm retrolisthesis of L1 over L2. Advanced degenerative spondylosis at L1-L2, L2-L3, L3-L4.
--- OUTSIDE RECORDS SUMMARY | 2025-03-26 07:53 | XMS_ITS | Encounter Summary ---
Author Organization [facility] Address [address] [place] [id number] Care Team Providers Care Marketing Project Manager Name Role Phone Mack Jay MD Primary Care Provider Encounter Details Date Type Department Care Team (Late Contact Info) Description 11/11/2018 Chart Note [facility] Radiation Therapy [address] [place] [address] [place] [address] [place] [address] Social History Tobacco Use Types Packs/Day Years Used Date Smoking Tobacco: Never Smokeless Tobacco: Never Alcohol Use Standard Drinks/Week Comments Yes 0 (1 standard drink = 0.6 oz pur e alcohol) socially Comments No Sex and Gender Information Value Date Recorded Sex Assigned at Female 07/09/2024 4:05 PM CDT Legal Sex Female 2:24 PM CDT Gender Identity Female 07/09/2024 4:05 PM CDT Sexual Orientation Asexual 07/09/2024 4: 05 PM CDT documented as of this encounter Plan of Treatment Upcoming Encounters Date Type Department Care Team (Late Contact Info) Description 07/22/2025 2:30 PM CDT Office Visit [facility] Oncology and Hematology - [place] [address] [facility] [address] [place] [address] Charly Alvarado MD [address] [facility] [address] [place] [address] documented as of this encounter Visit Diagnoses Not on filedocumented in this encounter Care Teams Marketing Project Manager Relationship Specialty Start Date End Date Mack Jay MD [address] [place] [address] PCP - General Family Practice 01/19/25 documented as of this encounter
--- OUTSIDE RECORDS SUMMARY | 2025-03-26 07:53 | XMS_ITS | Clinical Summary ---
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 Gender Identity Not on file Sexual Orientation Not on file Plan of Treatment Health Maintenance Due Date Last Done Comments DEXA Bone Density 1945 Hepatitis C Virus (HCV) Screening 1945 TdaP Immunization 1945 Pneumococcal Immunization (50+ years) (1 of 1 - PCV) 1995 Zoster Immunization (2 of 3) 02/06/2013 12/12/2012 Respiratory Syncytial Virus (RSV) Immunization (Adult) (1 - 1-dose 75+ series) 2020 Influenza Immunization (#1) 06/14/202406/16, 07/10/2017, 07/15/2016, Additional history exists SARS-COV-2 Immunization ( season) 2024 12/21/2020, 11/22/2020 Hepatitis B Immunization Aged Out No longer eligible based on patient's age to complete this topic Meningococcal Immunization (ACWY) Aged Out No longer eligible based on patient's age to complete this topic Rotavirus Immunization Aged Out No lo nger eligible based on patient's age to complete this topic
--- OUTSIDE RECORDS SUMMARY | 2025-03-26 07:53 | XMS_ITS | Encounter Summary ---
Author Organization [facility] Address [address] [place] [address] Care Team Providers Care Computer Hardware Technician Name Role Phone Mack Jay MD Primary Care Provider [phone] Reason for Visit * Reason Comments Medication Refill Encounter Details Date Type Department Care Team (Late Contact Info) Description 03/10/2019 Refill [facility] Oncology and Hematology [place] Srinivas Gonzalez [address] [place] [address] Charly Alvarado MD [address] [facility] [address] [place] [address] Social History Tobacco Use Types Packs/Day Years [...] Description 07/22/2025 2:30 PM CDT Office Visit [facility] Oncology [facility] Hematology [place] Srinivas [address] [place] [address] Charly Alvarado MD [address] [facility] [address] [place] [address] documented as of this encounter Visit Diagnoses Not on filedocumented in this encounter Care Teams Computer Hardware Technician Relationship Specialty Start Date End Date Mack Jay MD [address] [facility] [address] [place] [address] PCP - General Family Practice 01/19/25 documented as of this encounter
--- OUTSIDE RECORDS SUMMARY | 2025-03-26 07:53 | XMS_ITS | Clinical Summary ---
Author Organization [facility] Address [address] [facility] [place] [address] Care Team Providers Care Geotechnical Intern Name Role Phone Willa Ruff MD Primary Care Provider + Source Comments [facility],non-owned Affiliates and Associated Physician Practices is amultiple site organization consisting of ambulatory clinics and hospital sitesin [place], [place], [place] and [place]. This disclosure is being madepursuant to the Care Everywhere program and may not contain all information available regarding this patient. Last updated 18.[facility] Allergies No known active allergies Medications * Be aware that medications may not be up to date on this document. Alwaysverify current medications with the patient. oxyCODONE, immediate release, (Roxicodone) 10 MG tabletIndicati ons:Osteomyeli tis of lumbar spine (HCC) Take 1 (one) tablet by mouth every 6 hours as needed 12 tablet 3 Active acetaminophen (Tylenol) 325 MG tablet Take 2 (two) tablets by mouth every 6 hours as needed Maximum allowable Acetaminophen amount = 4 Grams (4000 mg) / 24 hours. 3 Active pregabalin (Lyrica) 150 MG capsule Take 1 (one) capsule by mouth 2 times daily 3 Active FLUoxetine (PROzac) 20 MG capsule Take 1 (one) capsule by mouth once daily 3 Active anastrozole (Arimidex) 1 MG tablet Take 1 (one) tablet by mouth once daily 3 Active cyanocobalamin 1000 MCG Take 1 (one) tablet by mouth once daily 3 Active polyethylene glycol 3350 (Miralax) 17 g packet Take 17 (seventeen) g by mouth 2 times daily 3 Active senna (Senokot) 8.6 MG tablet Take 1 (one) tablet by mouth once daily 3 Active melatonin 5 MG tablet Take 1 (one) tablet by mouth at bedtime 3 Active vitamin D3 (Cholecalcifer ol) 10 MCG (400 UNIT) tablet Take 1 (one) tablet by mouth once daily 3 Active Active Problems Problem Noted Date Diagnosed Date 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 Not very hard 04/15/2023 [facility] [place] [facility] Occupat ional Health - Occupational Stress Questionnaire Answer Date Recorded Do you feel stress - tense, restless, nervous, or anxious, or unable to sleep at night because your mind is troubled all the time - these days? To some extent 04/15/2023 Hunger Vital Sign Answer Date Recorded Within the past 12 months, y ou worried that your food would run out before you got the money to buy more. Never true 04/15/20 23 Within the past 12 months, t he food you bought just didn't last and you didn't have money to get more. Never true 04/15/2023 PRAPARE - Transportation Answer Date Re corded In the past 12 months, has l ack of transportation kept you from medical appointments or from getting medications? No 12/2022 In the past 12 months, has l ack of transportation kept you from meetings, work, or from getting things needed for daily living? No 04/15/2023 Housing Stability Vital Sign Answer Moe e Recorded In the last 12 months, was t here a time when you were not able to pay the mortgage or rent on time? No 04/15/2023 In the last 12 months, how many places have you lived? 1 04/15/2023 In the last 12 months, was t here a time when you did not have a steady place to sleep or slept in a retirement (including now)? No 04/15/2023 Comments Unknown Sex and Gender Information Value Date Recorded Sex Assigned at Not on file Legal Sex Female 3:45 PM CDT Gender Identity Not on file Sexual Orientation Not on file Last Filed Vital Signs Vital Sign Reading Time Taken Comments Blood Pressure 128/55 04/21/2023 4:10 PM CDT Pulse 75 04/21/2023 4:10 PM CDT Temperature 36.6 C (97.8 F) 04/21/2023 4:10 PM CDT Respiratory Rate 18 04/21/2023 4:10 PM CDT Oxygen Saturation 95% 04/21/2023 4:10 PM CDT Inhaled Oxygen Concentration - - Weight 61.2 kg (135 lb) 04/11/2023 7:49 PM CDT Height 152.4 cm (5') 04/11/2023 7:49 PM CDT Body Mass Index 26.37 04/11/2023 7:49 PM CDT Plan of Treatment Health Maintenance Due Date Last Done Comments BONE DENSITY TESTING 1945 MEDICARE AWV 12 MONTHS 1945 DTAP/TDAP/TD VACCINES (1 - Tdap) 1964 PNEUMOCOCCAL VACCINE 50+ (1 of 1 - PCV) 1995 ZOSTER VACCINE (1 of 2) 1995 Respiratory Syncytial Virus (RSV) Vaccine Pt: or over 60 yrs (1 - 1-dose 75+ series) 2020 COVID-19 VACCINE ( - 2023-2 5 season) 2024 DEPRESSION SCREENING 10/14/2024 INFLUENZA VACCINE (Season Ended) 2025 07/10/20 18 HEPATITIS B VACCINE Aged Out No longe r eligible based on patient's age to complete this topic HIB VACCINE Aged Out No longer eligi ble based on patient's age to complete this topic HPV VACCINE Aged Out No longer eligi ble based on patient's age to complete this topic MENINGOCOCCAL (Group B) VACC INE SHARED DECISION-MAKING Aged Out No longer eligibl e based on patient's age to complete this topic MENINGOCOCCAL GROUPS A/C/Y/W VACCINE Aged Out No longer eligible b ased on patient's age to complete this topic Insurance MEDICARE [facility] MEDICARE [facility] Advance Directives * Full Code (Latest Code Status on File) Date Activated Date Inactivated Comments 04/11/2023 8:26 PM 04/21/2023 7:34 PM Care Teams Geotechnical Intern Relationship Specialty Start Date End Date Willa Ruff MD [address] [facility] [address] [place] [address] PCP - General Family Medicine 04/11/23
--- OUTSIDE RECORDS SUMMARY | 2025-03-26 07:53 | XMS_ITS | Clinical Summary ---
Author Organization [facility] Address [address] [place] [address] Care Team Providers Care Finisher Card Tender Name Role Phone Mack Jay MD Primary Care Provider [phone] Allergies No known active allergies Medications multivitamin (DAILY-BRYAN) tablet Take 1 Tablet by mouth daily. Active pregabalin (LYRICA) 150 mg Capsule Take 150 mg by mouth daily. Active cyanocobalamin (VITAMIN B-12) 100 mcg tablet Take 100 mcg by mouth daily. Active denosumab (PROLIA) 60 mg/mL Syringe 11/14/2019 Activ e FLUoxetine (PROzac) 20 mg capsule Take 20 mg by mouth daily. 07/25/2022 Active anastrozole (ARIMIDEX) 1 mg tabletIndicatio ns:Malignant neoplasm of upper-outer quadrant of left breast in female, estrogen receptor positive (CMS/HCC) Take 1 Tablet (1 mg) by mouth daily. 90 Tablet 2 07/20/2024 Active celecoxib (CeleBREX) 200 mg capsule TAKE 1 CAPSULE BY MOUTH ONCE DAILY NEEDED FOR ACUTE PAIN 12/22/2024 Active losartan (COZAAR) 25 mg tablet Take 1 Tablet by mouth daily. 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 Other fatigue 10/17/2018 Aromatase inhibitor use 07/17/2018 Seroma of breast 05/23/2018 Lymphedema of breast 05/23/2018 Venous insufficiency 05/16/2018 Breast cancer metastasized to axillary lymph nod e, left 04/30/2018 Malignant neoplasm of upper- outer quadrant of left breast in female, estrogen receptor positive 04/15/2018 Postmenopausal hormone therapy 04/15/2018 Resolved Problems Problem Noted Date Diagnosed Date Resolved Date Estrogen receptor positive 04/15/2018 0 10/24/2018 Abnormal ultrasound of breast 03/18/2018 12/12/2018 Abnormal mammogram 03/18/2018 9 Lump of left breast 03/18/2018 12/13/19 19 Enlarged lymph nodes in armpit 03/18/2018 12/12/2018 Encounters Date Type Department Care Team Description 03/16/2025 External Device Data [facility] ABSTRACTION Provider, Abstract 03/09/2025 External Device Data [facility] ABSTRACTION Provider, Abstract 03/04/2025 External Device Data [facility]STRACTION Provider, Abstract 03/02/2025 External Device Data [facility] ABSTRACTION Provider, Abstract 02/10/2025 Abstract [facility] Oncology and Hematology [facility] Srinivas [address] [place] [address] Charly Alvarado MD 01/19/2025 1:00 PM CDT Office Visit [facility] Oncology and Hematology [facility] Darrius Gonzalez [address] [place] [address] Charly Alvarado MD Malignant neoplasm of upper-outer quadrant of left breast in female, estrogen receptor positive (CMS/HCC) (Primary Dx); Visit for screening mammogram 01/19/2025 Orders Only [facility] Oncology and Hematology [facility] Darrius Gonzalez [address] [place] [address] Charly Alvarado MD 01/18/2025 Orders Only [facility] Oncology and Hematology [place] Darrius [address] [place] [address] Charly Alvarado MD 12/30/2024 External Device Data [facility] ABSTRACTION Provider, Abstract 12/30/2024 External Device Data [facility] ABSTRACTION Provider, Abstract from Last 3 Months Immunizations Immunization Administration Dates Next Due Influenza Seasonal Unspecified Formulation IM Family History Medical History Relation Name Comments Heart Disease Brother 1 Other Brother 1 Stroke Brother 1 Other Brother 2 Heart Disease Father Heart Disease Mother Hypertension Mother Other Mother Healthy Sister 1 Healthy Sister 2 Healthy Sister 3 Relation Name Status Comments Brother 1 Alive Brother 2 Father Mother Sister 1 Alive Sister 2 Alive Sister 3 Alive Social History Tobacco Use Types Packs/Day Years Used Date Smoking Tobacco: Never Smokeless Tobacco: Never Tobacco Cessation:Counseling Given: Not Answered Alcohol Use Standard Drinks/Week Comments Yes 0 (1 standard drink = 0.6 oz pur e alcohol) socially Comments No Sex and Gender Information Value Date Recorded Sex Assigned at Female 07/09/2024 4:05 PM CDT Legal Sex Female 2:24 PM CDT Gender Identity Female 07/09/2024 4:05 PM CDT Sexual Orientation Asexual 07/09/2024 4: 05 PM CDT Last Filed Vital Signs Vital Sign Reading Time Taken Comments Blood Pressure 114/70 01/19/2025 1:16 PM CDT Pulse 85 01/19/2025 1:16 PM CDT Temperature 36.7 C (98.1 F) 01/19/2025 1:16 PM CDT Respiratory Rate 15 01/19/2025 1:16 PM CDT Oxygen Saturation 91% 01/19/2025 1:16 PM CDT Inhaled Oxygen Concentration - - Weight 71.7 kg (158 lb) 01/19/2025 1:16 PM CDT Height 152.4 cm (5') 07/31/2022 2:11 PM CDT Body Mass Index 30.86 07/31/2022 2:11 PM CDT Plan of Treatment Upcoming Encounters Date Type Department Care Team (Late st Contact Info) Description 07/22/2025 2:30 PM CDT Office Visit [facility] Oncology and Hematology - [place] [address] [facility] [address] [place] [address] Charly Alvarado MD [address] [facility] [address] [place] [address] Health Maintenance Due Date Last Done Comments DTAP/TDAP/TD VACCINES (1 - Tdap) 1964 PNEUMOCOCCAL VACCINE 50+ YEA RS (1 of 2 - PCV) 1964 ZOSTER VACCINE (1 of 2) 1964 RSV VACCINE (60+ or ) (1 - 1-dose 75+ series) 2020 INFLUENZA VACCINE (#1) 2024 07/10/2018 OSTEOPOROSIS SCREENING 01/20/2025 0, 01/21/2020, 02/13/2018 Procedures Procedure Name Priority Date/Time Associated Diagnosis Comments CBC MIXED CELL DIFFERENTIAL Routine 01/15/2025 3:08 PM CDT COMPREHENSIVE METABOLIC PANEL Routine 01/15/2025 3:05 PM CDT CANCER ANTIGEN 15-3 Routine 01/15/2025 1 0:31 AM CDT XR DEXA BONE DENSITY AXIAL 1 OR MORE SITES Routine 01/21/2020 Osteoporosis, unspecified osteoporosis type, unspecified pathological fracture presence from Last 3 Months or Most Recently Relevant to Health Maintenance Results * CBC MIXED CELL DIFFERENTIAL (01/15/2025 3:08 PM CDT) Blood us Charly Alvarado MD HEMATOLOGY ORDERABLES Final Res ult * COMPREHENSIVE METABOLIC PANEL (01/15/2025 3:05 PM CDT) Blood us Charly Alvarado MD CHEMISTRY ORDERABLES Final Resu lt * CANCER ANTIGEN 15-3 (01/15/2025 10:31 AM CDT) Blood us Charly Alvarado MD CHEMISTRY ORDERABLES Final Resu lt * XR DEXA BONE DENSITY AXIAL 1 OR MORE SITES (01/21/2020) Anatomical Region Laterality Modality Other us Charly Alvarado MD DIAGNOSTIC IMAGING ORDERABLES F inal Result from Last 3 Months or Most Recently Relevant to Health Maintenance Insurance [facility] [id number] [place] [id number] [facility] [id number] Care Teams Finisher Card Tender Relationship Specialty Start Date End Date Mack Jay MD [address] [facility] [address] [place] [address] PCP - General Family Practice 01/19/25
== END 2025-03-26 07:46 | disposition home or self-care (01) ==
PROVIDERS: PCP Family Medicine; Visit Provider Psychiatry & Neurology Neurology
DX: G61.89 Other inflammatory polyneuropathies (principal); M51.369 Other intervertebral disc degeneration, lumbar region without mention of lumbar back pain or lower extremity pain; M47.896 Other spondylosis, lumbar region
CPT/HCPCS: 72148

== ENCOUNTER 2025-04-02 14:45 | Outpatient (CLI) | payer MEDICARE, SELFPAY ==
--- NOTE | ~2025-04-02 | MM_ITS ---
EXAMINATION: MM screening nicole BI w kate HISTORY: Screening TECHNIQUE: Craniocaudal and mediolateral oblique 3-D tomosynthesis images were obtained and synthetic 2-D images were generated. CAD analysis was submitted and interpreted. COMPARISON: Comparison to multiple prior studies sequentially, with oldest reviewed study dated 01/23. BREAST PARENCHYMAL COMPOSITION: Not dense: There are scattered areas of fibroglandular density. FINDINGS: There is a developing mass in the subareolar location of the right breast. There is a devel oping asymmetry superiorly in the left breast on MLO view and centrally posterior to the nipple along the posterior third on CC view. There are no suspicious calcifications. IMPRESSION: 1. Developing right breast mass. Developing left breast asymmetries. 2. Additional mammographic views and possible breast ultrasound are recommended. BI-RADS Category 0: Incomplete: Needs additional imaging evaluation. Reviewed, dictated and finalized at location A. IMPRESSION: 1. Developing right breast mass. Developing left breast asymmetries. 2. Additional mammographic views and possible breast ultrasound are recommended . BI-RADS Category 0: Incomplete: Needs additional imaging evaluation.
== END 2025-04-02 14:46 | disposition home or self-care (01) ==
LOC: ANHIMG 14:47
PROVIDERS: PCP Family Medicine; Visit Provider Internal Medicine Hematology & Oncology
DX: Z12.31 Encounter for screening mammogram for malignant neoplasm of breast (principal); R92.8 Other abnormal and inconclusive findings on diagnostic imaging of breast
CPT/HCPCS: 77063; 77067

== ENCOUNTER 2025-04-15 12:54 | Outpatient (CLI) | payer MEDICARE, SELFPAY ==
--- OUTSIDE RECORDS SUMMARY | 2025-04-15 12:59 | XMS_ITS | Encounter Summary ---
Author Organization [facility] Address [address] [place] [address] Care Team Providers Care Rivet Catcher Name Role Phone Mack Jay MD Primary Care Provider [phone] Encounter Details Date Type Department Care Team (Late Contact Info) Description 11/11/2018 Chart Note [facility] Radiation Therapy [address] [place] [address] [place] [address] [place] [address] Social History Tobacco Use Types [...] Description 07/22/2025 2:30 PM CDT Office Visit [facility] Oncology and Hematology - [place] [address] [facility] [address] [place] [address] Charly Alvarado MD [address] [facility] [address] [place] [address] documented as of this encounter Visit Diagnoses Not on filedocumented in this encounter Care Teams Rivet Catcher Relationship Specialty Start Date End Date Mack Jay MD [address] [place] [address] PCP - General Family Practice 01/19/25 documented as of this encounter
--- OUTSIDE RECORDS SUMMARY | 2025-04-15 12:59 | XMS_ITS | Clinical Summary ---
Author Organization [facility] Address [address] [place] [address] Care Team Providers Care Hot Braider Name Role Phone Mack Jay MD Primary Care Provider [phone] Allergies No known active allergies Medications multivitamin [...] Encounters Date Type Department Care Team Description 04/06/2025 External Device Data STL ABSTRACTION Provider, Abstract 04/05/2025 Orders Only [facility] Oncology [facility] Hematology [facility] [address] [place] [address] Charly Alvarado MD Abnormal mammogram of both breasts (Primary Dx) 04/05/2025 Orders Only [facility] Oncology and Hematology [facility] Srinivas [address] [place] [address] Charly Alvarado MD 03/16/2025 External Device Data STL ABSTRACTION Provider, Abstract 03/09/2025 External Device Data STL ABSTRACTION Provider, Abstract 03/04/2025 External Device Data STL ABSTRACTION Provider, Abstract 03/02/2025 External Device Data STL ABSTRACTION Provider, Abstract 02/10/2025 Abstract [facility] Oncology [facility] Srinivas Gonzalez [address] [place] [address] Charly Alvarado MD 01/19/2025 1:00 PM CDT Office Visit [facility] Oncology [facility] Hematology [facility] Darrius [address] [place] [address] Charly Alvarado MD Malignant neoplasm of upper-outer quadrant of left breast in female, estrogen receptor positive (CMS/HCC) (Primary Dx); Visit for screening mammogram 01/19/2025 Orders Only [facility] Oncology [facility] Hematology [facility] Darri[address] [place] [address] Charly Alvarado MD 01/18/2025 Orders Only [facility] Oncology and Hematology - [place] [address] [place] [address] Charly Alvarado MD from Last 3 Months Immunizations Immunization Administration [...] Description 07/22/2025 2:30 PM CDT Office Visit [facility] Oncology and Hematology - [place] [address] [place] [address] Charly Alvarado MD [address] [facility] [address] [place] [address] Health Maintenance Due Date Last Done Comments DTAP/TDAP/TD VACCINES (1 - Tdap) 1964 PNEUMOCOCCAL VACCINE 50+ YEA RS (1 of 2 - PCV) 1964 ZOSTER VACCINE (1 of 2) 1964 RSV VACCINE (60+ or ) (1 - 1-dose 75+ series) 2020 OSTEOPOROSIS SCREENING 01/20/2025 0, 01/21/2020, 02/13/2018 INFLUENZA VACCINE (#1) 2025 07/10/2018 Procedures Procedure Name Priority Date/Time Associated Diagnosis Comments MAMMO SCREENING BILAT Routine 04/02/2025 9:19 AM CDT CBC MIXED CELL DIFFERENTIAL Routine 01/15/2025 3:08 PM CDT COMPREHENSIVE METABOLIC PANEL Routine 01/15/2025 3:05 PM CDT CANCER ANTIGEN 15-3 Routine 01/15/2025 1 0:31 AM CDT XR DEXA BONE DENSITY AXIAL 1 OR MORE SITES Routine 01/21/2020 Osteoporosis, unspecified osteoporosis type, unspecified pathological fracture presence from Last 3 Months or Most Recently Relevant to Health Maintenance Results * MAMMO SCREENING BILAT (04/02/2025 9:19 AM CDT) Anatomical Region Laterality Modality Breast Bilateral Mammography Charly Alvarado MD MAMMO ORDERABLES Final Result * CBC MIXED CELL DIFFERENTIAL (01/15/2025 3:08 PM CDT) Blood us Charly Alvarado MD HEMATOLOGY ORDERABLES Final Res ult * COMPREHENSIVE METABOLIC PANEL (01/15/2025 3:05 PM CDT) Blood us Charly Alvarado MD CHEMISTRY ORDERABLES Final Resu lt * CANCER ANTIGEN 15-3 (01/15/2025 10:31 AM CDT) Blood Charly Alvarado MD CHEMISTRY ORDERABLES Final Resu lt * XR DEXA BONE DENSITY AXIAL 1 OR MORE SITES (01/21/2020) Anatomical Region Laterality Modality Other Charly Avlarado MD DIAGNOSTIC IMAGING ORDERABLES F inal Result from Last 3 Months or Most Recently Relevant to Health Maintenance Insurance MEDICARE PART A AND B [facility] [id number] MEDICARE PART A AND B [facility] [id number] Care Teams Hot Braider Relationship Specialty Start Date End Date Mack Jay MD [address] [facility] [address] [place] [address] PCP - General Family Practice 01/19/25
--- OUTSIDE RECORDS SUMMARY | 2025-04-15 12:59 | XMS_ITS | Clinical Summary ---
Author Organization [facility] Address [address] [place] [address] Care Team Providers Care Railroad Car Truck Builder Name Role Phone Unavailable Primary Care Provider Unavailabl e Social History Tobacco Use Types Packs/Day Years Used Date Smoking Tobacco: Never Assessed Comments Unknown Sex and Gender Information Value Date Recorded Sex Assigned at Not on file Legal Sex Female 4:04 PM SHORT ORDER COOK Gender Identity Not on file Sexual Orientation [...]
--- OUTSIDE RECORDS SUMMARY | 2025-04-15 12:59 | XMS_ITS | Encounter Summary ---
Author Organization [facility] Address [address] [place] [address] Care Team Providers Care Residential Assistant Name Role Phone Mack Jay MD Primary Care Provider Reason for Visit * Reason Comments Medication Refill Encounter Details Date Type Department Care Team (Late Contact Info) Description 03/10/2019 Refill [facility] Oncology and Hematology [place] Srin[address] [place] [address] Charly Alvarado MD [address] [facility] [address] [place] [address] Social History Tobacco Use Types [...] Description 07/22/2025 2:30 PM CDT Office Visit [facility] Oncology [facility] Hematology [place] Srin[address] [place] [address] Charly Alvarado MD [address] [facility] [address] [place] [address] documented as of this encounter Visit Diagnoses Not on filedocumented in this encounter Care Teams Residential Assistant Relationship Specialty Start Date End Date Mack Jay MD [address] [facility] [address] [place] [address] PCP - General Family Practice 01/19/25 documented as of this encounter
--- OUTSIDE RECORDS SUMMARY | 2025-04-15 12:59 | XMS_ITS | Clinical Summary ---
Author Organization [facility] Address [address] [facility] [place] [address] Care Team Providers Care It Portfolio Manager Name Role Phone Willa Ruff MD Primary Care Provider + Source Comments [facility],non-owned Affiliates and Associated Physician Practices is amultiple site organization consisting of ambulatory clinics and hospital sitesin [place], [place], [place] and [place]. This disclosure is being madepursuant to the Care Everywhere program and may not contain all information available regarding this patient. Last updated 18.[facility] Allergies No known active allergies Medications * [...] care, and heating? Not very hard 04/15/2023 [facility] [place] of Occupat ional Health - Occupational Stress [...] season) 2024 DEPRESSION SCREENING 10/14/2024 INFLUENZA VACCINE (#1) 2025 07/10/2018 HEPATITIS B VACCINE Aged Out No longe [...] age to complete this topic Insurance MEDICARE [facility] MEDICARE [facility] Advance Directives * Full Code (Latest Code Status on File) Date Activated Date Inactivated Comments 04/11/2023 8:26 PM 04/21/2023 7:34 PM Care Teams It Portfolio Manager Relationship Specialty Start Date End Date Willa Ruff MD [address] [facility] [address] [place] [address] PCP - General Family Medicine 04/11/23
--- NOTE | 2025-04-15 15:00 | NEURO_ITS ---
Clinical note: The patient is 79-year-old with complaints of paresthesias and weakness in her both feet and legs. There is no history of diabetes mellitus. Surgery in the right knee and foot in the past. On a brief neurological examination no focal muscle wasting or fasciculations were seen. The results of the study are as follows. Summary of findings: 1. Left and right medial plantar and sural sensory responses were absent. 2. Left and right peroneal motor distal latencies were moderately prolonged on left and normal on the right side however amplitudes were significantly decreased. Section velocities were essentially within normal limits. There was no focal slowing across the fibular head. 3. Left and right tibial motor distal latencies were within normal limits. Amplitudes were mild to moderately decreased right more than left side. Conduction velocity the however within normal limits. 4. Bilateral H-reflex were absent. 5. EMG examination was performed where various muscles were examined in both lower limbs and related paraspinal muscles. Mild chronic denervation changes were seen in paraspinal muscles at today right L Three, 4, 5 levels. Peripheral muscles show motor unit changes and loss of motor unit recruitment and L5-S1 distribution as shown below. Some changes also seen in both vastus medialis and right rectus femoris. Impression: EMG and nerve conduction study on both lower limbs show followings: 1. Evidence of moderate, length-dependent, axonal type peripheral neuropathy. Etiologic correlation is recommended. 2. Evidence of diffuse , chronic L3-S1 radiculopathy. Denervation changes were seen in paraspinal and decreased recruitment was noted in peripheral muscles as shown below. Radiographic correlation is recommended. There was no evidence for myopathic process. Remainder of the findings were within acceptable normal limits. Spenser Hoang MD, FAAN, FAANEM Neurology and electrodiagnostic Medicine Nerve Conduction Studies Motor Nerve Results ? Latency Amplitude F-Lat Segment Distance CV Comment Site (ms) (mV) (ms) (cm) (m/s) Left Peroneal (EDB) Motor Ankle 6.6 0.52 Bel Fib Head 12.7 0.54 Bel Fib Head-Ankle 270 44 Pop Fossa 14.4 0.64 Pop Fossa-Bel Fib Head 70 41 Right Peroneal (EDB) Motor Ankle 5.0 0.68 Bel Fib Head 10.7 0.37 Bel Fib Head-Ankle 220 39 Pop Fossa 11.9 0.54 Pop Fossa-Bel Fib Head 70 58 Left Tibial (AHB) Motor Ankle 5.2 4.4 Knee 13.7 5.0 Knee-Ankle 350 41 Right Tibial (AHB) Motor Ankle 3.6 2.4 Knee 12.1 1.24 Knee-Ankle 350 41 Sensory Nerve Results ? Latency (Peak) Amplitude (P-P) Segment Distance CV Comment Site (ms) (?V) (cm) (m/s) Left Medial Plantar (Ortho) Sensory Great Toe-Med Mall NR NR Great Toe-Med Mall 90 NR Right Medial Plantar (Ortho) Sensory Great Toe-Med Mall NR NR Great Toe-Med Mall 100 NR Left Sural Sensory Calf-Lat Mall NR NR Calf-Lat Mall 120 NR Right Sural Sensory Calf-Lat Mall NR NR Calf-Lat Mall 120 NR H-Reflex Results ? M-Lat H Lat H Peak-Peak Amp M Peak-Peak Amp H-M Lat Site (ms) (ms) mV mV (ms) Left Tibial H-Reflex Pop Fossa - NR - - NR Right Tibial H-Reflex Pop Fossa - NR - - NR Electromyography ?Side Muscle Nerve Ins Act Fibs Psw Amp Dur Recrt Comment Right BicepsFemS Sciatic Nml Nml Nml Incr >12ms +2 Right Semimembranosus Sciatic Nml Nml Nml Incr >12ms +3 Right AntTibialis Dp Br Fibular Nml Nml Nml Incr >12ms +4 Right Gastroc Tibial Nml Nml Nml Incr >12ms +3 Right VastusMed Femoral Nml Nml 1+ Incr >12ms +3 Right RectFemoris Femoral Nml Nml Nml Incr >12ms +2 Right GluteusMax InfGluteal Nml Nml Nml Nml >12ms +1 Right TensorFascLat SupGluteal Nml Nml Nml Incr >12ms +1 Left BicepsFemS Sciatic Nml Nml Nml Incr >12ms +2 Left Semimembranosus Sciatic Nml Nml Nml Nml Nml Nml Left AntTibialis Dp Br Fibular Nml Nml 1+ Incr >12ms +3 Left Gastroc Tibial Nml Nml Nml Nml Nml +4 Left VastusMed Femoral Nml Nml Nml Incr >12ms +3 Left GluteusMax InfGluteal Nml Nml Nml Nml Nml Nml Left TensorFascLat SupGluteal Nml Nml 1+ Nml Nml Nml Left L4 Parasp Rami Incr Nml Nml Nml Nml Nml Right L4 Parasp Rami Nml 1+ Nml Nml Nml Nml CRD Left L5 Parasp Rami Nml Nml Nml Nml Nml Nml Right L5 Parasp Rami Nml Nml 1+ Nml Nml Nml CRD Left L3 Parasp Rami Nml Nml Nml Nml Nml Nml Left RectFemoris Femoral Nml Nml Nml Incr >12ms +2 Right L3 Parasp Rami Nml Nml 1+ Nml Nml Nml
== END 2025-04-15 12:55 | disposition home or self-care (01) ==
LOC: ANHNEURO 12:56
PROVIDERS: PCP Family Medicine; Visit Provider Psychiatry & Neurology Neurology
DX: G62.89 Other specified polyneuropathies (principal); E11.9 Type 2 diabetes mellitus without complications
CPT/HCPCS: 95886; 95910

== ENCOUNTER 2025-04-23 13:23 | Outpatient (CLI) | payer MEDICARE, SELFPAY ==
--- NOTE | ~2025-04-23 | MMUS_ITS ---
EXAMINATION: MM diagnostic nicole BI w kate, US breast LT limited HISTORY: 79-year-old woman with a personal history of breast cancer, diagnosed and treated in 2019 wi lumpectomy, radiation & chemotherapy presents for diagnostic evaluation of a developing mass in th e subareolar location of the right breast, developing asymmetry in the superior left breast and the p osterior third of the left breast on cc view. TECHNIQUE: Additional 3-D tomosynthesis images of bilateral breasts were performed and synthetic 2-D images were generated. CAD analysis was submitted and interpreted. High resolution limited left breast ultrasound was performed. COMPARISON: Examination is compared with multiple prior studies, performed most recently on 04/02/2025 and dating back to 07/26/2022. BREAST PARENCHYMAL COMPOSITION:Not Dense. There are scattered areas of fibroglandular density. FINDINGS: MAMMOGRAPHIC FINDINGS: The developing mass within the subareolar location of the right breast is unchanged from 07/26/2022 ( diagnostic mammography and ultrasound at that time was also performed) for which no further dedicated follow-up is needed. The developing asymmetry in the superior left breast corresponds to patient's lumpectomy scar, consis tent with prior history of breast cancer. The posterior third of the left breast on CC view effaces with spot compression, likely representing a summation artifact (overlapping fibroglandular tissues) for which focused ultrasound examination wi ll be performed for confirmation. ULTRASOUND: Sonographic evaluation of the posterior third of the left breast ranging from 2-4 o'clock and 8-10:00 demonstrates benign fibroglandular elements without a cystic or solid lesion of concern. IMPRESSION: No mammographic or sonographic evidence to suggest the presence of malignancy. Resumption of yearly mammography is recommended. BI-RADS Category 2: Benign finding(s). Reviewed, dictated and finalized at location A. IMPRESSION: No mammographic or sonographic evidence to suggest the presence of malignancy. Resumption of yearly mammography is recommended. BI-RADS Category 2: Benign finding(s).
--- OUTSIDE RECORDS SUMMARY | 2025-04-23 13:26 | XMS_ITS | Clinical Summary ---
Author Organization [facility] Address [address] [facility] [place] [address] Care Team Providers Care Gamma Operator Name Role Phone Willa Ruff MD Primary Care Provider + Source Comments [facility],non-owned Affiliates and Associated Physician Practices is amultiple site organization consisting of ambulatory clinics and hospital sitesin [place], [place], [place] and [place]. This disclosure is being madepursuant to the Care Everywhere program and may not contain all information available regarding this patient. Last updated 18.[facility] Allergies No known active allergies Medications * [...] care, and heating? Not very hard 04/15/2023 [facility] [place] of Occupat ional Health - Occupational Stress [...] place to sleep or slept in a half-way (including now)? No 04/15/2023 Comments Unknown Sex [...] age to complete this topic Insurance MEDICARE [facility] MEDICARE [facility] Advance Directives * Full Code (Latest Code Status on File) Date Activated Date Inactivated Comments 04/11/2023 8:26 PM 04/21/2023 7:34 PM Care Teams Gamma Operator Relationship Specialty Start Date End Date Willa Ruff MD [address] [facility] [address] [place] [address] PCP - General Family Medicine 04/11/23
--- OUTSIDE RECORDS SUMMARY | 2025-04-23 13:26 | XMS_ITS | Clinical Summary ---
Author Organization [facility] Address [address] [place] [address] Care Team Providers Care Barge Worker Name Role Phone Mack Jay MD Primary Care Provider [phone] Allergies No known active allergies Medications multivitamin [...] STL ABSTRACTION Provider, Abstract 04/05/2025 Orders Only [facility] Oncology and Hematology [facility] [address] [place] [address] Charly Alvarado MD Abnormal mammogram of both breasts (Primary Dx) 04/05/2025 Orders Only [facility] Oncology and [facility] [address] [place] [address] Charly Alvarado MD 03/16/2025 External Device Data STL ABSTRACTION Provider, Abstract 03/09/2025 External Device Data [place] ABSTRACTION Provider, Abstract 03/04/2025 External Device Data [place] ABSTRACTION Provider, Abstract 03/02/2025 External Device Data ST[place] ABSTRACTION Provider, Abstract 02/10/2025 Abstract [facility] Oncology [facility] [address] [place] [address] Charly Alvarado MD from Last 3 Months [...] Description 07/22/2025 2:30 PM CDT Office Visit [facility] Oncology and Hematology - [place] [address] [facility] [address] [place] [address] Charly Alvarado MD [address] [facility] [address] [place] [address] Health Maintenance Due Date Last [...] SCREENING BILAT Routine 04/02/2025 9:19 AM CDT XR DEXA BONE DENSITY AXIAL 1 OR MORE SITES Routine 01/21/2020 Osteoporosis, unspecified osteoporosis type, unspecified pathological fracture presence from Last 3 Months or Most Recently Relevant to Health Maintenance Results * MAMMO SCREENING BILAT (04/02/2025 9:19 AM CDT) Anatomical Region Laterality Modality Breast Bilateral Mammography Charly Alvarado MD MAMMO ORDERABLES Final Result * XR DEXA BONE DENSITY AXIAL 1 OR MORE SITES (01/21/2020) Anatomical Region Laterality Modality Other Charly Alvarado MD DIAGNOSTIC IMAGING ORDERABLES F inal Result from Last 3 Months or Most Recently Relevant to Health Maintenance Insurance MEDICARE PART A AND B [facility] [id number] MEDICARE PART A AND B [facility] [id number] Care Teams Barge Worker Relationship Specialty Start Date End Date Mack Jay MD [address] [facility] [address] [place] [address] PCP - General Family Practice 01/19/25
--- OUTSIDE RECORDS SUMMARY | 2025-04-23 13:26 | XMS_ITS | Encounter Summary ---
Author Organization [facility] Address [address] [place] [address] Care Team Providers Care Wood Veneer Taper Name Role Phone Mack Jay MD Primary Care Provider Reason for Visit * Reason Comments Medication Refill Encounter Details Date Type Department Care Team (Late Contact Info) Description 03/10/2019 Refill [facility] Oncology and Hematology [place] Srin[address] [place] [address] Charly Alvarado MD [address] [facility] [place] [address] [place] [address] Social History Tobacco Use Types [...] Description 07/22/2025 2:30 PM CDT Office Visit [facility] Oncology [facility] Hematology [place] Srinivas [address] [place] [address] Charly Alvarado MD [address] [facility] [place] [address] [place] [address] documented as of this encounter Visit Diagnoses Not on filedocumented in this encounter Care Teams Wood Veneer Taper Relationship Specialty Start Date End Date Mack Jay MD [address] [facility] [address] [place] [address] PCP - General Family Practice 01/19/25 documented as of this encounter
--- OUTSIDE RECORDS SUMMARY | 2025-04-23 13:26 | XMS_ITS | Clinical Summary ---
Author Organization [facility] Address [address] [place] [address] Care Team Providers Care Orthopedic Physician Name Role Phone Unavailable Primary Care Provider Unavailabl e Social History Tobacco Use Types Packs/Day Years Used Date Smoking Tobacco: Never Assessed Comments Unknown Sex and Gender Information Value Date Recorded Sex Assigned at Not on file Legal Sex Female 4:04 PM TEST RIDER Gender Identity Not on file Sexual Orientation [...]
--- OUTSIDE RECORDS SUMMARY | 2025-04-23 13:26 | XMS_ITS | Encounter Summary ---
Author Organization [facility] Address [address] [place] [address] Care Team Providers Care Instrument Lens Grinder Apprentice Name Role Phone Mack Jay MD Primary Care Provider [phone] Encounter Details Date Type Department Care Team (Late Contact Info) Description 11/11/2018 Chart Note [facility] Radiation Therapy [address] [place] [address] [place] [address] [place] [address] Social History Tobacco Use Types [...] Description 07/22/2025 2:30 PM CDT Office Visit [facility] Oncology and Hematology - [place] [address] [facility] [address] [place] [address] Charly Alvarado MD [address] [facility] [address] [place] [address] documented as of this encounter Visit Diagnoses Not on filedocumented in this encounter Care Teams Instrument Lens Grinder Apprentice Relationship Specialty Start Date End Date Mack Jay MD [address] [place] [address] PCP - General Family Practice 01/19/25 documented as of this encounter
== END 2025-04-23 13:24 | disposition home or self-care (01) ==
LOC: ANHIMG 13:25
PROVIDERS: PCP Family Medicine; Visit Provider Internal Medicine Hematology & Oncology
DX: R92.8 Other abnormal and inconclusive findings on diagnostic imaging of breast (principal)
CPT/HCPCS: 76642; 77062; 77066; G0279

== ENCOUNTER 2025-04-23 15:04 | Outpatient (CLI) | payer MEDICARE, SELFPAY ==
--- OUTSIDE RECORDS SUMMARY | 2025-04-23 15:08 | XMS_ITS | Clinical Summary ---
Author Organization [facility] Address [address] [place] [address] Care Team Providers Care Consulting Manager Name Role Phone Unavailable Primary Care Provider Unavailabl e Social History Tobacco Use Types Packs/Day Years Used Date Smoking Tobacco: Never Assessed Comments Unknown Sex and Gender Information Value Date Recorded Sex Assigned at Not on file Legal Sex Female 4:04 PM TABLEAU DEVELOPER Gender Identity Not on file Sexual Orientation [...]
--- OUTSIDE RECORDS SUMMARY | 2025-04-23 15:08 | XMS_ITS | Encounter Summary ---
Author Organization [facility] Address [address] [place] [address] Care Team Providers Care Finish Opener Name Role Phone Mack Jay MD Primary Care Provider [phone] Reason for Visit * Reason Comments Medication Refill Encounter Details Date Type Department Care Team (Late Contact Info) Description 03/10/[address] [facility] Oncology and Hematology [place] Srinivas [address] [place] [address] Charly Alvarado MD [address] [facility] [address] [place] [address] Social History Tobacco Use Types [...] 07/22/2025 2:30 PM CDT Office Visit [facility] Oncology [facility] Hematology [place] Srinivas [address] [place] [address] Charly Alvarado MD [address] [facility] [address] [place] [address] documented as of this encounter Visit Diagnoses Not on filedocumented in this encounter Care Teams Finish Opener Relationship Specialty Start Date End Date Mack Jay MD [address] [facility] [address] [place] [address] PCP - General Family Practice 01/19/25 documented as of this encounter
--- OUTSIDE RECORDS SUMMARY | 2025-04-23 15:08 | XMS_ITS | Encounter Summary ---
Author Organization [facility] Address [address] [place] [address] Care Team Providers Care Superintendent Menagerie Name Role Phone Mack Jay MD Primary Care Provider Encounter Details Date Type Department Care Team (Late Contact Info) Description 11/11/2018 Chart Note [facility] Radiation Therapy [address] [place] [address] [place] [address] [place] [address] Social History Tobacco Use Types [...] Description 07/22/2025 2:30 PM CDT Office Visit [facility] Oncology and Hematology - [place] [address] [facility] [address] [place] [address] Charly Alvarado MD [address] [facility] [address] [place] [address] documented as of this encounter Visit Diagnoses Not on filedocumented in this encounter Care Teams Superintendent Menagerie Relationship Specialty Start Date End Date Mack Jay MD [address] [place] [address] PCP - General Family Practice 01/19/25 documented as of this encounter
--- OUTSIDE RECORDS SUMMARY | 2025-04-23 15:08 | XMS_ITS | Clinical Summary ---
Author Organization [facility] Address [address] [place] [address] Care Team Providers Care Lan Analyst Name Role Phone Mack Jay MD Primary Care Provider [phone] Allergies No known active allergies Medications multivitamin [...] STL ABSTRACTION Provider, Abstract 04/05/2025 Orders Only [facility] Oncology and Hematology [facility] [address] [place] [address] Charly Alvarado MD Abnormal mammogram of both breasts (Primary Dx) 04/05/2025 Orders Only [facility] and [facility] [address] [place] [address] Charly Alvarado MD 03/16/2025 External Device Data STL ABSTRACTION Provider, Abstract 03/09/2025 External Device Data STL ABSTRACTION Provider, Abstract 03/04/2025 External Device Data STL ABSTRACTION Provider, Abstract 03/02/2025 External Device Data STL ABSTRACTION Provider, Abstract 02/10/2025 Abstract [facility]cology [facility] [address] [place] [address] Charly Alvarado MD from Last 3 Months [...] Description 07/22/2025 2:30 PM CDT Office Visit [facility] Oncology and Hematology - [place] [address] [facility] [address] [place] [address] Charly Alvarado MD [address] [facility] [address] [place] [address] Health Maintenance Due Date Last Done Comments DTAP/TDAP/TD VACCINES (1 - Tdap) 1964 PNEUMOCOCCAL VACCINE 50+ YEA RS (1 of 2 - PCV) 1964 Traditional Medicare (ACO) A nnual Wellness Visit 1964 ZOSTER VACCINE (1 of 2) 1964 RSV VACCINE (60+ or ) (1 - 1-dose 75+ series) 2020 OSTEOPOROSIS SCREENING 01/20/2025 , 01/21/2020, 02/13/2018 INFLUENZA VACCINE (#1) 2025 07/10/2018 [...] Maintenance Insurance MEDICARE PART A AND B [facility] [id number] MEDICARE PART A AND B [facility] [id number] Care Teams Lan Analyst Relationship Specialty Start Date End Date Mack Jay MD [address] [facility] [address] [place] [address] PCP - General Family Practice 01/19/25
--- OUTSIDE RECORDS SUMMARY | 2025-04-23 15:08 | XMS_ITS | Clinical Summary ---
Author Organization [facility] Address [address] [place] [address] Care Team Providers Care Lead Bi Developer Name Role Phone Willa Ruff MD Primary Care Provider + Source Comments [facility],non-owned Affiliates and Associated Physician Practices is amultiple site organization consisting of ambulatory clinics and hospital sitesin [place], [place], [place] and [place]. This disclosure is being madepursuant to the Care Everywhere program and may not contain all information available regarding this patient. Last updated 18.[facility] Allergies No known active allergies Medications * [...] care, and heating? Not very hard 04/15/2023 [employer] [place] of Occupat ional Health - Occupational Stress [...] place to sleep or slept in a prison (including now)? No 04/15/2023 Comments Unknown Sex [...] age to complete this topic Insurance MEDICARE [facility] MEDICARE [facility] Advance Directives * Full Code (Latest Code Status on File) Date Activated Date Inactivated Comments 04/11/2023 8:26 PM 04/21/2023 7:34 PM Care Teams Lead Bi Developer Relationship Specialty Start Date End Date Willa Ruff MD [address] [facility] [address] [place] [address] PCP - General Family Medicine 04/11/23
[2025-04-23 16:15] LABS: Thyroid Stimulating Hormone 1.030 uIU/mL (0.465-4.680)
== END 2025-04-23 15:05 | disposition home or self-care (01) ==
LOC: ANHLAB 15:06
PROVIDERS: PCP Family Medicine; Visit Provider Family Medicine
DX: R63.5 Abnormal weight gain (principal); R53.83 Other fatigue
CPT/HCPCS: 36415; 84443

== ENCOUNTER 2025-05-14 09:53 | Outpatient (RCR) | payer MEDICARE, SELFPAY ==
--- NOTE | 2025-05-14 11:02 | OPREHPOC ---
Outpatient Therapy Plan of Care This is a Multidisciplinary Plan of Care that may contain components documented by all disciplines (PT, OT, and ST.) PT Problem 1 PT Problem #1 Knowledge Deficit PT Goal 1 Goal / Goal Update 1* independent with HEP 2* correct body mechanics and posture with exercises Target Visit 10 PT Problem 2 PT Problem #2 Pain PT Goal 1 Goal / Goal Update 1* pt report pain at worst of 4/10 2* no radicular pain into L lateral hip Target Visit 10 PT Problem 3 PT Problem #3 Impaired Strength PT Goal 1 Goal / Goal Update increase strength of trunk and LE's to improve mobility skills and stability to spine: 1* gross strength of R hip and knee 4-/5 2* gross strength of L LE 4/5 3* sit/stand without use of UE x 5 reps Target Visit 10 PT Problem 4 PT Problem #4 Impaired Functional Mobility PT Goal 1 Goal / Goal Update 1* 2 minute walking test distance of 250' with cane 2* 5 reps sit/stand time of 17 seconds 3* pt report NO falls Target Visit 10
--- NOTE | 2025-05-14 11:02 | PTOPEVAL1 ---
Assessment and note entered by Dory Chester, PT Evaluation Information Assessment Status Evaluation ICD-10 Condition Codes (PT) Pain in low back M54.50 Onset about 1 year Subjective Information chronic back pain, worse in the past year; had MRI of back and nerve conduction test on legs; have fallen 5x in past 6 months, legs give out or hit L toe on step; has to help her get off floor; had therapy at another facility for leg strengthening and L arm lymphedema; have been doing exercises in her pool at home this summer- walking and leg exercises; activity: use cane in the house all the time and when go out, use wheeled walker, wheel chair or motorized scooter; wear R ankle brace due to ankle issues; Goal: get rid of back pain; Reported Pain Level Pain Score 3: Self Report Additional Pain Score Comments pain range in the past week: 1-7/10; bilateral low back, into L lateral hip/ R lumbar only increase pain: walking at most time of 30 minutes; house work 30 minutes --then have to stop decrease pain: heat, sit, rest, lie flat on back sleeping is OK Assessment PT Clinical Summary Lynne has the diagnosis of low back pain, post polio syndrome with R LE weakness. She has had falls due to legs give out or L toe catching on step. Pain limits her walking and home task ability, requires frequent breaks due to pain. She uses a cane, wheeled walker, wheel chair or motorized scooter for mobility. Back Index self rating of 48% limitation in activity level. Medical history includes: chronic back pain, [place], polio, breast cancer with L UE lymphedema, R TKR. With the evaluation: weakness of both legs, poor standing posture of trunk and hips; 5 reps sit/ stand time of 21 seconds with 1 UE use; 2 minute walking test distance of 185' with cane; supine R hip flexion and abduction active motions increase back pain. She does report a fear of falling again. Skilled PT services are indicated for modalities to decrease pain; therapeutic exercises to increase strength of hips and LE's, with education for HEP, posture and body mechanics. Plan of Care Interventions Electrical Stimulation,Hot Pack/Cold Pack,Manual Therapy,Neuro Re-education,Patient/Caregiver Education,Therapeutic Activities,Therapeutic Exercise,Other Other Interventions taping PT Services Indicated Yes Treatment Frequency and 1-2x/wk for 10 visits Duration These treatments will address the objective and functional deficits as defined above. The patient will be advanced safely and appropriately in order for the patient to progress towards his/her prior level of function. Additional exercises will be introduced and as well as a comprehensive home exercise program upon discharge, if needed, ?to ensure carryover of functional gains achieved in the clinic. This treatment plan has been reviewed and agreement upon by the patient.
--- NOTE | 2025-05-26 10:44 | OPREHPOC ---
Outpatient Therapy Plan of Care This is a Multidisciplinary Plan of Care that may contain components documented by all disciplines (PT, OT, and ST.) PT Problem 1 PT Problem #1 Knowledge Deficit PT Goal 1 Goal / Goal Update 1* independent with HEP 2* correct body mechanics and posture with exercises 05-26-25 d/c pt called and canceled therapy goals were not addressed Target Visit 10 PT Problem 2 PT Problem #2 Pain PT Goal 1 Goal / Goal Update 1* pt report pain at worst of 01/21 2* no radicular pain into L lateral hip 05-26-25 d/c pt called and canceled therapy goals were not addressed Target Visit 10 PT Problem 3 PT Problem #3 Impaired Strength PT Goal 1 Goal / Goal Update increase strength of trunk and LE's to improve mobility skills and stability to spine: 1* gross strength of R hip and knee 4-/5 2* gross strength of L LE 4/5 3* sit/stand without use of UE x 5 reps 05-26-25 d/c pt called and canceled therapy goals were not addressed Target Visit 10 PT Problem 4 PT Problem #4 Impaired Functional Mobility PT Goal 1 Goal / Goal Update 1* 2 minute walking test distance of 250' with cane 2* 5 reps sit/stand time of 17 seconds 3* pt report NO falls 05-26-25 d/c pt called and canceled therapy goals were not addressed Target Visit 10
--- NOTE | 2025-05-26 10:44 | PTOPDC ---
Assessment and note entered by Dory Chester, PT Assessment Status Discharge - Pt Not Present ICD-10 Condition Codes (PT) Pain in low back M54.50 Onset about 1 year Subjective Information pt called and canceled therapy appointments; stated she was going to be out of town and then wants to see her dr again to see what to do about her back. Assessment PT Clinical Summary Lynne had the PT evaluation on May 14 for low back pain. She then called and canceled her appointments. Discharge PT. The goals were not addressed. Plan of Care PT Services Indicated No
== END 2025-05-26 11:19 | disposition home or self-care (01) ==
LOC: ANHPT 09:53
PROVIDERS: PCP Family Medicine; Visit Provider Psychiatry & Neurology Neurology
DX: M54.9 Dorsalgia, unspecified (principal); G89.29 Other chronic pain; G61.89 Other inflammatory polyneuropathies; G14 Postpolio syndrome
CPT/HCPCS: 97110; 97162; 97530

== ENCOUNTER 2025-06-03 14:24 | Outpatient (CLI) | payer MEDICARE, SELFPAY ==
--- NOTE | ~2025-06-03 | US_ITS ---
EXAMINATION:US venous doppler LE RT INDICATION:Right leg swelling and pain TECHNIQUE: Multiple grayscale, color flow and Doppler images of the right lower extremity deep venous systems were obtained and reviewed. COMPARISON:No prior studies for comparison. FINDINGS: The common femoral, superficial femoral and popliteal veins demonstrate normal respiratory variation, augmentation and compressibility. Color flow is also seen within the posterior tibial, peroneal, greater saphenous and profunda veins. IMPRESSION: 1: No lower extremity deep venous thrombosis. Reviewed, dictated and finalized at location O.
--- OUTSIDE RECORDS SUMMARY | 2025-06-03 14:38 | XMS_ITS | Encounter Summary ---
Author Organization [facility] Address [address] [place] [address] Care Team Providers Care Life Management Teacher Name Role Phone Mack Jay MD Primary Care Provider Encounter Details Date Type Department Care Team (Late Contact Info) Description 11/11/2018 Chart Note [facility] Radiation Therapy [address] [place] [address] [place] [address] [place] [address] Social History Tobacco Use Types [...] Center Oncology and Hematology - [place] [address] [facility] [address] [place] [address] Charly Alvarado MD [address] [facility] [address] [place] [address] documented as of this encounter Visit Diagnoses Not on filedocumented in this encounter Care Teams Life Management Teacher Relationship Specialty Start Date End Date Mack Jay MD [address] [place] [address] PCP - General Family Practice 01/19/25 documented as of this encounter
--- OUTSIDE RECORDS SUMMARY | 2025-06-03 14:38 | XMS_ITS | Clinical Summary ---
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 Gender Identity Not on file Sexual Orientation Not on file Plan of Treatment Health Maintenance Due Date Last Done Comments Hepatitis C Virus (HCV) Screening 1945 TdaP Immunization 1945 Pneumococcal Immunization (50+ years) (1 of 1 - PCV) 1995 Zoster Immunization (2 of 3) 02/06/2013 12/12/2012 Respiratory Syncytial Virus (RSV) Immunization (Adult) (1 - 1-dose 75+ series) 2020 SARS-COV-2 Immunization (3 - season) 2024 12/21/2020, 11/22/2020 Influenza Immunization (#1) 06/14/202506/16, 07/10/2017, 07/15/2016, Additional history exists Hepatitis B Immunization Aged Out No longer eligible based on patient's age to complete this topic Human Papillomavirus (HPV) Immunization Aged Out No longer eligible based on patient's age to complete this topic Meningococcal Immunization (ACWY) Aged Out No longer eligible based on patient's age to complete this topic Rotavirus Immunization Aged Out No lo nger eligible based on patient's age to complete this topic
--- OUTSIDE RECORDS SUMMARY | 2025-06-03 14:38 | XMS_ITS | Clinical Summary ---
Author Organization [facility] Address [address] [place] [address] Care Team Providers Care Position Classification Specialist Name Role Phone Mack Jay MD Primary Care Provider [phone] Allergies No known active allergies Medications multivitamin [...] Encounters Date Type Department Care Team Description 06/01/2025 External Device Data STL ABSTRACTION Provider, Abstract 05/18/2025 External Device Data STL ABSTRACTION Provider, Abstract 04/28/2025 External Device Data STL ABSTRACTION Provider, Abstract 04/27/2025 External Device Data STL ABSTRACTION Provider, Abstract 04/06/2025 External Device Data STL ABSTRACTION Provider, Abstract 04/05/2025 Orders Only [facility] Oncology and Hematology [facility] [address] [place] [address] Charly Alvarado MD Abnormal mammogram of both breasts (Primary Dx) 04/05/2025 Orders Only [facility] Oncology and Hematology [place] [address] [place] [address] Charly Alvarado MD 03/16/2025 External Device Data [...] ([facility]) Oncology and Hematology - [place] [address] [facility] [address] [place] [address] Charly Alvarado MD [address] [facility] [address] [place] [address] Health Maintenance Due Date Last Done Comments DTAP/TDAP/TD VACCINES (1 - Tdap) 1964 PNEUMOCOCCAL VACCINE 50+ YEA RS (1 of 2 - PCV) 1964 ZOSTER VACCINE (1 of 2) 1964 RSV VACCINE (60+ or ) (1 - 1-dose 75+ series) 2020 INFLUENZA VACCINE (#1) 2025 07/10/2018 OSTEOPOROSIS SCREENING 09/22/2029 4, 01/21/2020, 01/21/2020, Additional history exists Procedures Procedure Name Priority Date/Time Associated Diagnosis [...] Maintenance Insurance MEDICARE PART A AND B [facility] [id number] MEDICARE PART A AND B [facility] [id number] Care Teams Position Classification Specialist Relationship Specialty Start Date End Date Mack Jay MD [address] [facility] [address] [place] [address] PCP - General Family Practice 01/19/25
--- OUTSIDE RECORDS SUMMARY | 2025-06-03 14:38 | XMS_ITS | Encounter Summary ---
Author Organization [facility] Address [address] [place] [address] Care Team Providers Care Equity Manager Name Role Phone Mack Jay MD Primary Care Provider Encounter Details Date Type Department Care Team (Late st Contact Info) Description 06/01/2025 External Device Data STL ABSTRACTION Provider, Abstract NO ADDRESS ON FILE Social History Tobacco Use Types Packs/Day Years [...] 07/22/2025 2:30 PM CDT Office Visit [facility] Oncology and Hematology - [place] [address] [facility] [address] [place] [address] Charly Alvarado MD [address] [facility] [address] [place] [address] documented as of this encounter Visit Diagnoses Not on filedocumented in this encounter Care Teams Equity Manager Relationship Specialty Start Date End Date Mack Jay MD [address] [facility] [address] [place] [address] PCP - General Family Practice 01/19/25 documented as of this encounter
--- OUTSIDE RECORDS SUMMARY | 2025-06-03 14:38 | XMS_ITS | Clinical Summary ---
Author Organization [facility] Address [address] [place] [address] Care Team Providers Care Child And Family Therapist Name Role Phone Willa Ruff MD Primary Care Provider + Source Comments [facility],non-owned Affiliates and Associated Physician Practices is amultiple site organization consisting of ambulatory clinics and hospital sitesin [place], [place], [place] and [place]. This disclosure is being madepursuant to the Care Everywhere program and may not contain all information available regarding this patient. Last updated 18.[facility] Allergies No known active allergies Medications * [...] care, and heating? Not very hard 04/15/2023 [facility] of Occupat ional Health - Occupational Stress [...] place to sleep or slept in a care home (including now)? No 04/15/2023 Comments Unknown Sex [...] age to complete this topic Insurance MEDICARE [facility] [place] [address] [facility] Advance Directives * Full Code (Latest Code Status on File) Date Activated Date Inactivated Comments 04/11/2023 8:26 PM 04/21/2023 7:34 PM Care Teams Child And Family Therapist Relationship Specialty Start Date End Date Willa Ruff MD [address] [facility] [address] [place] [address] PCP - General Family Medicine 04/11/23
--- OUTSIDE RECORDS SUMMARY | 2025-06-03 14:38 | XMS_ITS | Encounter Summary ---
Author Organization [facility] Address [address] [place] [address] Care Team Providers Care Duplicator Punch Operator Name Role Phone Mack Jay MD Primary Care Provider [phone] Reason for Visit * Reason Comments Medication Refill Encounter Details Date Type Department Care Team (Late Contact Info) Description 03/10/2019 Refill [facility] Oncology and Hematology [place] [address] [place] [address] Charly Alvarado MD [address] [facility] [address] [place] [address] Social History Tobacco Use Types [...] Description 07/22/2025 2:30 PM CDT Office Visit [facility] Oncology [facility] Hematology [place] [address] [place] [address] Charly Alvarado MD [address] [facility] [address] [place] [address] documented as of this encounter Visit Diagnoses Not on filedocumented in this encounter Care Teams Duplicator Punch Operator Relationship Specialty Start Date End Date Mack Jay MD [address] [facility] [address] [place] [address] PCP - General Family Practice 01/19/25 documented as of this encounter
== END 2025-06-03 14:25 | disposition home or self-care (01) ==
LOC: ANHIMG 14:30
PROVIDERS: PCP Family Medicine; Visit Provider Psychiatry & Neurology Neurology
DX: J96.01 Acute respiratory failure with hypoxia (principal)
CPT/HCPCS: 93971

== ENCOUNTER 2025-06-07 19:08 | Emergency (ER) | payer MEDICARE, SELFPAY ==
--- OUTSIDE RECORDS SUMMARY | 2025-06-07 19:12 | XMS_ITS | Clinical Summary ---
Author Organization 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
--- OUTSIDE RECORDS SUMMARY | 2025-06-07 19:12 | XMS_ITS | Encounter Summary ---
Author Organization [facility] Address [address] [place] [address] Care Team Providers Care Credit Representative Name Role Phone Mack Jay MD Primary Care Provider Reason for Visit * Reason Comments Medication Refill Encounter Details Date Type Department Care Team (Late Contact Info) Description 03/10/2019 Refill [facility] Oncology and Hematology [address] [place] [address] Charly Alvarado MD [address] [facility] [address] [place] [address] Social History Tobacco Use Types [...] Description 07/22/2025 2:30 PM CDT Office Visit [facility]cology [facility] Hematology [address] [place] [address] Charly Alvarado MD [address] [facility] [address] [place] [id number] documented as of this encounter Visit Diagnoses Not on filedocumented in this encounter Care Teams Credit Representative Relationship Specialty Start Date End Date Mack Jay MD [address] [facility] [address] [place] [address] PCP - General Family Practice 01/19/25 documented as of this encounter
--- OUTSIDE RECORDS SUMMARY | 2025-06-07 19:12 | XMS_ITS | Encounter Summary ---
Author Organization [facility] Address [address] [place] [address] Care Team Providers Care Stone Rubber Name Role Phone Mack Jay MD Primary Care Provider [phone] Encounter Details Date Type Department Care Team (Late Contact Info) Description 11/11/2018 Chart Note [facility] Radiation Therapy [address] [place] [address] [place] [address] [place] [address] Social History Tobacco Use Types [...] 07/22/2025 2:30 PM CDT Office Visit [facility] Oncology and Hematology - [place] [address] [facility] [address] [place] [address] Charly Alvarado MD [address] [facility] [address] [place] [address] documented as of this encounter Visit Diagnoses Not on filedocumented in this encounter Care Teams Stone Rubber Relationship Specialty Start Date End Date Mack Jay MD [address] [place] [address] [place] [address] PCP - General Family Practice 01/19/25 documented as of this encounter
--- OUTSIDE RECORDS SUMMARY | 2025-06-07 19:12 | XMS_ITS | Clinical Summary ---
Author Organization [facility] Address [address] [place] [address] Care Team Providers Care Tablet Tester Name Role Phone Willa Ruff MD Primary Care Provider + Source Comments [facility],non-owned Affiliates and Associated Physician Practices is amultiple site organization consisting of ambulatory clinics and hospital sitesin [place], [place], [place] and [place]. This disclosure is being madepursuant to the Care Everywhere program and may not contain all information available regarding this patient. Last updated 18.[facility] Allergies No known active allergies Medications * [...] care, and heating? Not very hard 04/15/2023 [facility] [place] [facility] - Occupational Stress [...] place to sleep or slept in a [place] health care facility (including now)? No 04/15/2023 Comments Unknown Sex [...] age to complete this topic Insurance MEDICARE [facility] MEDICARE [facility] Advance Directives * Full Code (Latest Code Status on File) Date Activated Date Inactivated Comments 04/11/2023 8:26 PM 04/21/2023 7:34 PM Care Teams Tablet Tester Relationship Specialty Start Date End Date Willa Ruff MD [address] [facility] [address] [place] [address] PCP - General Family Medicine 04/11/23
--- OUTSIDE RECORDS SUMMARY | 2025-06-07 19:15 | XMS_ITS | Clinical Summary ---
Author Organization [facility] Address [address] [place] [address] Care Team Providers Care Xm1 Tank Driver Name Role Phone Mack Jay MD Primary Care Provider [phone] Allergies No known active allergies Medications multivitamin [...] STL ABSTRACTION Provider, Abstract 04/05/2025 Orders Only [facility] Oncology and Hematology [facility] [address] [place] [address] Charly Alvarado MD Abnormal mammogram of both breasts (Primary Dx) 04/05/2025 Orders Only [facility] Oncology and Hematology [facility] [address] [place] [address] Charly Alvarado MD 03/16/2025 External Device Data [...] Description 07/22/2025 2:30 PM CDT Office Visit [facility] Oncology and Hematology - [place] [address] [facility] [address] [place] [address] Charly Alvarado MD [address] [facility] [address] [place] [address] Health Maintenance Due Date Last [...] Most Recently Relevant to Health Maintenance Insurance * Guarantor: Lynne Skinner Account Type Relation to Patient Date of Phone Billing Address Personal/Family Self [address] [place] [address] MEDICARE PART A AND B [facility] [id number] * Guarantor: Lynne Skinner Account Type Relation to Patient Date of Phone Billing Address Personal/Family Self [address] [place] [address] MEDICARE PART A AND B [facility] [id number] Care Teams Xm1 Tank Driver Relationship Specialty Start Date End Date Mack Jay MD [address] [facility] [address] [place] [address] PCP - General Family Practice 01/19/25
--- NOTE | 2025-06-07 19:16 | ED_ITS ---
HPI - Skin/Abscess/Foreign Bdy General Chief complaint: Extremity Injury, Upper Stated complaint: arm swelling, warm to the tough Source: patient and RN notes reviewed Mode of arrival: ambulatory Limitations: no limitations History of Present Illness HPI narrative: Patient is a 79-year-old female who presents to the [facility] with complaints of erythema to her left upper extremity. Patient reports history of lymphedema in the left upper extremity, which was diagnosed after patient had breast surgery removing 4 lymph nodes. Patient states that she chronically has increased size in the left arm compared to the right due to the lymphedema. However, she noted erythema and warmth to the extremity earlier today. Patient was concerned about possible infection. Denies recent fevers or chills. Related Data Home Medications ?Medication ?Instructions ?Recorded ?Confirmed ?Last Taken ?Type multivitamin 1 tablet PO DAILY 08/06/19 0 04/27/25 10/27/22 History cyanocobalamin (vitamin B-12) 1,000 mcg PO DAILY 09/0804/27/25 10/27/22 History 1,000 mcg capsule cholecalciferol (vitamin D3) 10 10 mcg PO BID 06/03/20 04/27/25 10/27/22 History mcg (400 unit) capsule denosumab 60 mg/mL subcutaneous 60 mg subcut [id number] 05/14/22 04/27/25 Unknown History syringe (Prolia) Allergies Allergy/AdvReac Type Severity Reaction Status Date / Time No Known Allergies Allergy Verified 06/07/25 19:24 Review of Systems Review of Systems: CONSTITUTIONAL: Denies fever, chills, or sweats. EYES: Denies visual changes, redness, or discharge. ENT: Denies otalgia and sore throat CARDIOVASCULAR: Denies chest pain, palpitations, or edema. RESPIRATORY: Denies cough or dyspnea. GASTROINTESTINAL: Denies abdominal pain, nausea, vomiting, or diarrhea. GENITOURINARY: Denies dysuria or hematuria. SKIN: Reports redness and warmth to the left upper extremity. MUSCULOSKELETAL: Denies back pain, joint pain, or myalgia. NEUROLOGIC: Denies headache, numbness, or weakness. Pertinent positives per HPI. 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) Malignant tumor of breast H/O poliomyelitis Arthritis Advance care planning Negative depression screening 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 History of vaginal delivery (~1967) History of vaginal delivery (~1961) S/P radiation therapy 4-12 wks ago (~2018) S/P chemotherapy, time since greater than 12 weeks (~2017) Estrogen receptor positive status (ER+) (~2017) History of hypokalemia (~2018) Leg weakness, bilateral (~2017) Neuropathy (~2017) Surgical History Surgical History S/P total knee arthroplasty H/O arthrodesis (~1956) H/O dilation and curettage (~1974) S/P lumpectomy, left breast (~2017) Family History Family History Mother Hypertension Family history of elevated blood lipids Family history of cardiovascular disease AAA (abdominal aortic aneurysm, ruptured) Sibling Hypertension Family history of diabetes mellitus in first degree relative Father Family history of osteoarthritis Family history of heart disease in male family member before age 55 Patient's father is Family history of cardiovascular disease Family history of arthritis Other Arthritis Diabetes mellitus Heart disease Social History Social History Social History: She is and has 2 children. 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 She is a lifelong nonsmoker. She does not use any alcohol marijuana or illicit drugs. Code status full code Smoking status: Never smoker Second hand tobacco smoke exposure: No Additional smoking assessment comments: DENIES ANY FORM OF TOBACCO USE Alcohol intake: former Drinks per week: 1 Alcohol use details: ONE DRINK PER MONTH Substance use: never Substance use type: does not use Do You Feel Safe in your Home?: Yes Lack of Transportation: No Lack of Food: Never True Current Housing: I Have Housing Concerned About Future Housing: No Difficulty Paying Gas/Electric Bills: No Difficulty Paying for Meds: No Currently Unemployed: No Education: High School Diploma/GED Difficulty w/ Childcare or Family Care: No Living arrangements: with family Additional living arrangements comments: lives w/ , 1984,: 2nd : Hector Mike: first : 18 years Occupation/Education: retired Gender identity (if verbalized by the patient): Female Sexual Orientation (if Verbalized by the Patient): Straight or Heterosexual Spiritual care concerns: No Agree to blood products: Yes Comments At the time of my signature, I reviewed and agree with the nursing past medical, surgical, social, and family history. There is no relevant family history pertinent to the patient complaint. Exam Narrative: GENERAL: This is a well-nourished, well-developed patient, in no apparent distress. HEAD: normocephalic, atraumatic. EYES: PERRL. Sclera clear/white. Vision is grossly intact. EARS: External ears normal, auditory canals clear and without drainage, TMs normal without perforation. Hearing grossly intact. NOSE: External nose normal with no obvious nasal discharge, nares without redness, no rhinorrhea. THROAT: Mucous membranes moist, posterior pharynx clear. NECK: Neck supple, non-tender without lymphadenopathy, masses or thyromegaly. CARDIOVASCULAR: Regular rate and rhythm without murmurs, gallops, or rubs. RESPIRATORY: Clear to auscultation. Breath sounds equal bilaterally. No wheezes, rales, or rhonchi. GASTROINTESTINAL: Abdomen soft, non-tender, nondistended. Bowel sounds are active. No hepato-splenomegaly, or palpable masses. No guarding. SKIN: Lymphedema to left upper extremity. Erythema and warmth to the left upper extremity, consistent with cellulitis. NEURO: awake, alert, and oriented to person, place and time. There were no obvious focal neurologic abnormalities. Course Course Level of Care: Express Care Visit Vital Signs Vital signs: Vital Signs Temperature 97.2 F L 06/07/25 19:17 Pulse Rate 84 06/07/25 19:17 Respiratory Rate 18 06/07/25 19:17 Blood Pressure 130/69 06/07/25 19:17 Pulse Oximetry 98 06/07/25 19:17 Oxygen Delivery Room Air 06/07/25 19:17 Temperature 97.2 F L 06/07/25 19:17 Pulse Rate 84 06/07/25 19:17 Respiratory Rate 18 06/07/25 19:17 Blood Pressure 130/69 06/07/25 19:17 Pulse Oximetry 98 06/07/25 19:17 Oxygen Delivery Room Air 06/07/25 19:17 Reviewed MDM - Skin/Abscess/Foreign Bdy MDM Narrative Medical decision making narrative: Clean with soap and water only; Avoid using alcohol and peroxide. Elevate the affected area if possible Alternate Tylenol/ibuprofen for as needed for pain Acetaminophen(Tylenol) 650- 1000mg every 4-6hours with max of 4000mg/day. Nonsteroidal anti-inflammatory agent (NSAIDs-ibuprofen): 400mg every 4-6hours with max 2400mg/day Take antibiotic until it's gone. Please schedule a follow up visit with your personal physician for further evaluation and treatment within 1-3 days OR if your symptoms persist, change or worsen significantly before you can contact your personal physician then please, without delay, go to the emergency department for further evaluation. Differential Diagnosis Differential diagnosis: Likely cellulitis, contact dermatitis and other ( lymphedema) Critical Care Time Critical Care Time Critical Care Time: No Discharge Plan Discharge Clinical Impression: Cellulitis of left upper extremity Patient Disposition: Home Condition: Stable Instructions: Antibiotic Form, Cellulitis (ED) Additional Instructions: Clean with soap and water only; Avoid using alcohol and peroxide. Elevate the affected area if possible Alternate Tylenol/ibuprofen for as needed for pain Acetaminophen(Tylenol) 650- 1000mg every 4-6hours with max of 4000mg/day. Nonsteroidal anti-inflammatory agent (NSAIDs-ibuprofen): 400mg every 4-6hours with max 2400mg/day Take antibiotic until it's gone. Please schedule a follow up visit with your personal physician for further evaluation and treatment within 1-3 days OR if your symptoms persist, change or worsen significantly before you can contact your personal physician then please, without delay, go to the emergency department for further evaluation. Patient Language: Mohawk Prescriptions: New cephalexin 500 mg capsule 500 mg PO Q8H 10 Days Qty: 30 0RF No Action (DME) Aerochamber MV Spacer See Rx Instructions .Route Qty: 1 0RF Rx Instructions: As directed multivitamin Tablet 1 tablet PO DAILY cholecalciferol (vitamin D3) 10 mcg (400 unit) capsule 10 mcg PO BID pregabalin 75 mg capsule 150 mg PO BID 90 Days Qty: 360 1RF tramadol 50 mg tablet 50 mg PO Q6H PRN (Reason: pain) Qty: 120 5RF celecoxib [Celebrex] 200 mg capsule See Rx Instructions .ROUTE .COMPLEX PRN (Reason: pain) Qty: 90 0RF Rx Instructions: Take 1 capsule by mouth once a day prn for acute pain Prolia 60 mg/mL syringe 60 mg subcut [id number] Rx Instructions: LAST TAKEN SEVERAL MONTHS AGO DECEMBER 2022 fluoxetine 40 mg capsule 40 mg PO DAILY Qty: 90 1RF cyanocobalamin (vitamin B-12) 1,000 mcg Capsule 1,000 mcg PO DAILY losartan 25 mg tablet 25 mg PO DAILY Qty: 90 1RF Follow-up/Referrals: Mack Jay MD [Primary Care Provider, Family Practice] Time of Disposition: 19:27
[2025-06-07 19:17] VITALS: BP 130/69; PULSE 84; RESP 18; TEMP 36.2; O2SAT 98
== END 2025-06-07 19:30 | disposition home or self-care (01) ==
PROVIDERS: Emergency Provider Nurse Practitioner; PCP Family Medicine
DX: L03.114 Cellulitis of left upper limb (principal); I73.9 Peripheral vascular disease, unspecified; G61.0 Guillain-Barre syndrome; E66.9 Obesity, unspecified; Z68.31 Body mass index [BMI] 31.0-31.9, adult; M17.11 Unilateral primary osteoarthritis, right knee; Z85.3 Personal history of malignant neoplasm of breast; Z92.3 Personal history of irradiation; Z92.21 Personal history of antineoplastic chemotherapy; Z86.16 Personal history of COVID-19
CPT/HCPCS: 99213; G0463

== ENCOUNTER 2025-08-17 13:30 | Outpatient (RCR) | payer MEDICARE, SELFPAY ==
--- NOTE | 2025-06-04 14:16 | PTOPEVAL1 ---
Assessment and note entered by Olivia Cornejo, PT Evaluation Information Assessment Status Evaluation Diagnosis M54.9, G89.29, G61.89, G14 ICD-10 Condition Codes (PT) Abnormalities of gait and mobility R26.9,Weakness R53.1 Onset Chronic Subjective Information States was doing leg therapy, and balance issues. States is falling more Dr. 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 Lasted 6 months until she could get from her walker to a cane. 2 years ago had sepsis that also got into low back /spine. Was in [place] [facility] and then to [facility] for 2 weeks. Was able to go from wheel chair and progressed to cane. Has not managed to get back to ambulation without a cane, last time was 5 years ago. Taking Celebrex 2x daily am and pm, only takes at flare ups yesterday her back was really bad, up to a 9/10 Always has a hint of pain with walking around, but can reduce with rest Reported Pain Level Pain Score 2: Self Report Assessment PT Clinical Summary Pt presents with complaints of back pain, and balance/walking deficits. Pt has multiple co- morbidities including neuropathy, and post-polio syndrome. Pt demonstrates leg length discrepancy L >R, significant weakness in lumbopelvic core TRAM and glutes. Pt will benefit from physical therapy to address deficits, educate and progress heel insert to account for leg length discrepancy, and improve overall function with less pain. Plan of Care Interventions Hot Pack/Cold Pack,Manual Therapy,Neuro Re- education,Patient/Caregiver Education,Therapeutic Activities,Therapeutic Exercise,Self-Care/Home Management PT Services Indicated Yes Treatment Frequency and 2x weekly x 10 visits Duration These treatments will address the objective and functional deficits as defined above. The patient will be advanced safely and appropriately in order for the patient to progress towards his/her prior level of function. Additional exercises will be introduced and as well as a comprehensive home exercise program upon discharge, if needed, ?to ensure carryover of functional gains achieved in the clinic. This treatment plan has been reviewed and agreement upon by the patient.
--- NOTE | 2025-06-04 14:16 | OPREHPOC ---
Outpatient Therapy Plan of Care This is a Multidisciplinary Plan of Care that may contain components documented by all disciplines (PT, OT, and ST.) PT Problem 1 PT Problem #1 Knowledge Deficit PT Goal 1 Goal / Goal Update Pt will be independent in HEP Pt will verbalize understanding of diagnosis and prognosis Target Visit 10 PT Problem 2 PT Problem #2 Pain PT Goal 1 Goal / Goal Update Pt will report lowest pain rating at 0/10 to show improvement in overall discomfort Target Visit 10 PT Goal 2 Goal / Goal Update Pt will report greatest pain level at 3/10 or less to improve ADLs and activities Target Visit 20 PT Problem 3 PT Problem #3 Impaired Strength PT Goal 1 Goal / Goal Update Pt will demo core strength of 3+/5 of the TRAM to improve lumbopelvic stability Target Visit 10 PT Goal 2 Goal / Goal Update Pt will demo 4/5 or greater strength in BLE to improve lumbopelvic stability Target Visit 20
--- NOTE | 2025-07-20 13:25 | PTOPPROG ---
Assessment and note entered by Vince Ugalde, PT Evaluation Information Assessment Status Progress Diagnosis M54.9, G89.29, G61.89, G14 ICD-10 Condition Codes (PT) Abnormalities of gait and mobility R26.9,Weakness R53.1 Onset Chronic Subjective Information Pt reports she feels 50% recovered overall. She states her back pain is much less and has noticed some improvements in her strength, endurance and balance. Pt states she has been participating more in household duties. Pt has noticed some increased L hip pain that hurts everyday but varies in intensity, she notes the hip pain gets worse as she walks and limits her abilities. Assessment PT Clinical Summary Patient's lower back and hip pain has improved overall as evidenced by advancements in symptoms, mobility. However, some limitations are still present such as limited functional mobility and gait due to increased pain and decreased strength and endurance. Patient would benefit from continued skilled physical therapy services to address the above listed impairments and facilitate a return to their prior level of function. Plan of Care Interventions Hot Pack/Cold Pack,Manual Therapy,Neuro Re- education,Patient/Caregiver Education,Therapeutic Activities,Therapeutic Exercise,Self-Care/Home Management PT Services Indicated Yes Treatment Frequency and 1-2x week for 6 visits Duration These treatments will address the objective and functional deficits as defined above. The patient will be advanced safely and appropriately in order for the patient to progress towards his/her prior level of function. Additional exercises will be introduced and as well as a comprehensive home exercise program upon discharge, if needed, ?to ensure carryover of functional gains achieved in the clinic. This treatment plan has been reviewed and agreement upon by the patient.
--- NOTE | 2025-08-17 14:26 | PTOPDC ---
Assessment and note entered by Vince Ugalde, PT Evaluation Information Assessment Status Discharge Diagnosis M54.9, G89.29, G61.89, G14 ICD-10 Condition Codes (PT) Abnormalities of gait and mobility R26.9,Weakness R53.1 Onset Chronic Subjective Information Pt reports she has some mild lower back and groin pain that is always present but is overall feeling better. Pt states she feels more confident walking but still does not have the endurance she would like for longer distances. Reported Pain Level Pain Score 3: Self Report Assessment PT Clinical Summary Patient's lower back and hip pain has improved overall as evidenced by advancements in symptoms, mobility, strength, and overall functional use of the extremity. Patient has met therapy goals and is pleased with progress made towards the remaining goals. Patient to discharge from physical therapy this date and continue with updated home exercise program as instructed. Patient to contact physical therapist or primary care provider if questions or concerns arise. Plan of Care PT Services Indicated No
== END 2025-08-18 16:05 | disposition home or self-care (01) ==
LOC: ANHGOSHPT 13:30
PROVIDERS: PCP Family Medicine; Visit Provider Psychiatry & Neurology Neurology
DX: M54.9 Dorsalgia, unspecified (principal); G89.29 Other chronic pain; G61.89 Other inflammatory polyneuropathies; G14 Postpolio syndrome
CPT/HCPCS: 97110; 97112; 97140; 97162; 97530; 99213; G0463

== ENCOUNTER 2025-08-18 16:57 | Emergency (ER) | payer MEDICARE, SELFPAY ==
[2025-08-18 17:08] VITALS: BP 135/59; PULSE 81; RESP 28; TEMP 36.3; O2SAT 94
[2025-08-18] MEDS: TETANUS,DIPHTHERIA,AC PERTUSSIS ADULT (0.5 ML) BOOSTRIX IM (17:17)
--- NOTE | 2025-08-18 17:32 | ED.SKABFB ---
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 She is not up-to-date on her tetanus vaccine. She dress the wound prior to arrival with a pressure dressing. Related Data Home Medications ?Medication ?Instructions ?Recorded ?Confirmed ?Last Taken ?Type multivitamin 1 tablet PO DAILY 08/06/19 08/18/25 10/27/22 History cyanocobalamin (vitamin B-12) 1,000 mcg PO DAILY 09/08/19 08/18/25 10/27/22 History 1,000 mcg capsule cholecalciferol (vitamin D3) 10 10 mcg PO BID 06/03/20 08/18/25 10/27/22 History mcg (400 unit) capsule denosumab 60 mg/mL subcutaneous 60 mg subcut [id number] 05/14/22 08/18/25 Unknown History syringe (Prolia) fluoxetine 40 mg capsule mg 08/18/25 Unknown History Allergies Allergy/AdvReac Type Severity Reaction Status Date / Time No Known Allergies Allergy Verified 08/18/25 16:59 [facility] Past Medical History Medical History Carcinoma of breast Cold feet Obesity COVID Chronic acquired lymphedema Peripheral vascular disease Discitis of lumbar region Bacteremia due to Gram-negative bacteria Degenerative joint disease, ankle, foot, 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 Degenerative arthritis of right knee Post-polio syndrome Arthritis of ankle 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) Malignant tumor of breast H/O poliomyelitis Arthritis Advance care planning Negative depression screening 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 History of vaginal delivery (~1967) History of vaginal delivery (~1962) S/P radiation therapy 4-12 wks ago (~2018) S/P chemotherapy, time since greater than 12 weeks (~2017) Estrogen receptor positive status (ER+) (~2017) History of hypokalemia (~2018) Leg weakness, bilateral (~2017) Neuropathy (~2017) Surgical History Surgical History S/P total knee arthroplasty H/O arthrodesis (~1956) H/O dilation and curettage (~1974) S/P lumpectomy, left breast (~2017) Family History Family History Mother Hypertension Family history of elevated blood lipids Family history of cardiovascular disease AAA (abdominal aortic aneurysm, ruptured) Sibling Hypertension Family history of diabetes mellitus in first degree relative Father Family history of osteoarthritis Family history of heart disease in male family member before age 55 Patient's father is Family history of cardiovascular disease Family history of arthritis Other Arthritis Diabetes mellitus Heart disease Social History Social History Social History: She is and has 2 children. 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 She is a lifelong nonsmoker. She does not use any alcohol marijuana or illicit drugs. Code status full code Second hand tobacco smoke exposure: No Additional smoking assessment comments: DENIES ANY FORM OF TOBACCO USE Alcohol intake: former Drinks per week: 1 Alcohol use details: ONE DRINK PER MONTH Substance use: never Substance use type: does not use Do You Feel Safe in your Home?: Yes Lack of Transportation: No Lack of Food: Never True Current Housing: I Have Housing Concerned About Future Housing: No Difficulty Paying Gas/Electric Bills: No Difficulty Paying for Meds: No Currently Unemployed: No Education: High School Diploma/GED Difficulty w/ Childcare or Family Care: No Living arrangements: with family Additional living arrangements comments: lives w/ , 1984,: 2nd : Hector Mike: first : 18 years Occupation/Education: retired Gender identity (if verbalized by the patient): Female Sexual Orientation (if Verbalized by the Patient): Straight or Heterosexual Spiritual care concerns: No Agree to blood products: Yes Comments At time of signature, I have reviewed and agree with nursing past medical, surgical, social and family history unless otherwise noted. Please see nursing chart for further information. There is no relevant family history pertinent to the presenting complaint Exam Narrative: GENERAL: Well-appearing, well-nourished, and in no acute distress. HEAD: Normocephalic, atraumatic. EYES: EOMI. No redness or drainage. Conjunctivae normal. ENT: Mucous membranes pink and moist. NECK: Normal AROM. CHEST: No respiratory distress. EXTREMITIES: Normal range of motion. SKIN: Warm, dry, no rash. Capillary refill normal. Normal skin turgor. 1cm superficial jagged skin tear to the dorsum of the left forearm. Small amount of serous fluid draining. Neurovascularly intact. NEURO: No focal deficits. Alert and oriented x3. Gait steady. PSYCH: Normal affect. No signs of depression or anxiety. Course Course Level of Care: Express Care Visit Vital Signs Vital signs: Vital Signs Temperature 97.3 F L 08/18/25 17:08 Pulse Rate 81 08/18/25 17:08 Respiratory Rate 28 H 08/18/25 17:08 Blood Pressure 135/59 L 08/18/25 17:08 Pulse Oximetry 94 08/18/25 17:08 Oxygen Delivery Room Air 08/18/25 17:08 Temperature 97.3 F L 08/18/25 17:08 Pulse Rate 81 08/18/25 17:08 Respiratory Rate 28 H 08/18/25 17:08 Blood Pressure 135/59 L 08/18/25 17:08 Pulse Oximetry 94 08/18/25 17:08 Oxygen Delivery Room Air 08/18/25 17:08 Reviewed. RR upon exam exam is 18. 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 She is not up-to-date on her tetanus vaccine. She dress the wound prior to arrival with a pressure dressing. Upon exam, 1 cm jagged superficial skin tear to the dorsal left forearm. Repaired with 3 Steri-Strips. Wound continues to drain is serous fluid so pressure dressing is applied. Patient's DTaP is updated today. DTap only contraindicated wtih hx of GBS if GBS occurred within 6 weeks of prior vaccination. Patient states this was not the case and etiology of her case of GBS was never found. Respiratory rate was decreased to 18 upon my exam. Remainder of VSS. Patient agrees with plan. Anticipatory guidance given. Differential Diagnosis Differential diagnosis: Likely other (abrasion, skin tear, laceration) Critical Care Time Critical Care Time Critical Care Time: No Discharge Plan Discharge Clinical Impression: Skin tear of left forearm without complication Qualifiers: Encounter type: initial encounter Qualified Code(s): S51.812A - Laceration without foreign body of left forearm, initial encounter Patient Disposition: Home Condition: Stable Instructions: Skin Tear (ED) Additional Instructions: Your skin tear was repaired with Steri-Strips. These will fall off on their own in approximately 7 days. It is fine for you to shower with them. Do not pick them off. Do not submerge your arm in standing water such as pools or hot tubs until your wound is scabbed over. Follow-up with your PCP with any signs of infection such as redness, swelling, increased pain or pus drainage. Your tetanus shot has been updated today. Patient Language: Guinean Prescriptions: No Action (DME) Aerochamber MV Spacer See Rx Instructions .Route Qty: 1 0RF Rx Instructions: As directed fluoxetine 40 mg capsule multivitamin Tablet 1 tablet PO DAILY cholecalciferol (vitamin D3) 10 mcg (400 unit) capsule 10 mcg PO BID pregabalin 75 mg capsule 150 mg PO BID 90 Days Qty: 360 1RF tramadol 50 mg tablet 50 mg PO Q6H PRN (Reason: pain) Qty: 120 5RF celecoxib [Celebrex] 200 mg capsule See Rx Instructions .ROUTE .COMPLEX PRN (Reason: pain) Qty: 90 0RF Rx Instructions: Take 1 capsule by mouth once a day prn for acute pain trazodone 50 mg tablet 25 mg PO QHS PRN (Reason: insomnia) Qty: 30 0RF Prolia 60 mg/mL syringe 60 mg subcut [id number] Rx Instructions: LAST TAKEN SEVERAL MONTHS AGO DECEMBER 2022 cyanocobalamin (vitamin B-12) 1,000 mcg Capsule 1,000 mcg PO DAILY losartan 25 mg tablet 25 mg PO DAILY Qty: 90 1RF Follow-up/Referrals: Mack Jay MD [Primary Care Provider, Family Practice] Time of Disposition: 17:40
--- OUTSIDE RECORDS SUMMARY | 2025-08-19 15:20 | XMS_ITS | Encounter Summary ---
Author Organization [facility] Address [address] [place] [address] Care Team Providers Care Reed Or Wind Instrument Repairer Name Role Phone Mack Jay MD Primary Care Provider [phone] Reason for Visit * Reason Comments Medication Refill Encounter Details Date Type Department Care Team (Late Contact Info) Description 03/10/2019 Refill [facility] Oncology and Hematology [address] [place] [address] Charly [place] MD [address] [facility] [address] [place] [address] Social History Tobacco Use Types [...] Department Care Team (Late Contact Info) Description 01/27/2026 11:00 AM CDT Office Visit [facility] Oncology [facility] Hematology [address] [place] [address] Charly [place] MD [address] [facility] [address] [place] [address] documented as of this encounter Visit Diagnoses Not on filedocumented in this encounter Care Teams Reed Or Wind Instrument Repairer Relationship Specialty Start Date End Date Mack Jay MD [address] [facility] [address] [place] [address] PCP - General Family Practice 01/19/25 documented as of this encounter
--- OUTSIDE RECORDS SUMMARY | 2025-08-19 15:20 | XMS_ITS | Clinical Summary ---
Author Organization [facility] Address [address] [place] [address] Care Team Providers Care Company Dancer Name Role Phone Mack Jay MD Primary Care Provider [phone] Allergies No known active allergies Medications multivitamin [...] Encounters Date Type Department Care Team Description 07/28/2025 8:45 AM CDT Office Visit [facility] Oncology and Hematology - [place] [address] [place] [address] Charly [place] MD Malignant neoplasm of upper-outer quadrant of left breast in female, estrogen receptor positive (CMS/HCC) (Primary Dx) 07/27/2025 External Device Data STL ABSTRACTION Provider, Abstract 07/20/2025 External Device Data STL ABSTRACTION Provider, Abstract 06/29/2025 External Device Data STL ABSTRACTION Provider, Abstract 06/24/2025 Orders Only [facility] Oncology and Hematology [facility] [address] [place] [address] Charly [place] MD 06/01/2025 External Device Data STL ABSTRACTION Provider, [...] Sign Reading Time Taken Comments Blood Pressure 139/82 07/28/2025 8:30 AM CDT Pulse 82 07/28/2025 8:30 AM CDT Temperature 36.2 C (97.2 F) 07/28/2025 8:30 AM CDT Respiratory Rate 16 07/28/2025 8:30 AM CDT Oxygen Saturation 93% 07/28/2025 8:30 AM CDT Inhaled Oxygen Concentration - - Weight 73.8 kg (162 lb 12.8 oz) 07/28/2025 8:30 AM CDT Height 152.4 cm (5') 07/31/2022 2:11 PM CDT Body Mass Index 31.79 07/31/2022 2:11 PM CDT Plan of Treatment Upcoming Encounters Date Type Department Care Team (Late st Contact Info) Description 01/27/2026 11:00 AM CDT Office Visit [facility] Oncology and Hematology - [place] [address] [facility] [address] [place] [address] Charly [place] MD [address] [facility] [address] [place] [address] Health Maintenance Due Date Last [...] Procedure Name Priority Date/Time Associated Diagnosis Comments COMPREHENSIVE METABOLIC PANEL Routine 06/23/2025 8:49 AM CDT XR DEXA BONE DENSITY AXIAL 1 OR MORE SITES Routine 01/21/2020 Osteoporosis, unspecified osteoporosis type, unspecified pathological fracture presence from Last 3 Months or Most Recently Relevant to Health Maintenance Results * COMPREHENSIVE METABOLIC PANEL (06/23/2025 8:49 AM CDT) Blood Charly [place] MD CHEMISTRY ORDERABLES Final Resu lt * XR DEXA BONE DENSITY AXIAL 1 OR MORE SITES (01/21/2020) Anatomical Region Laterality Modality Other Charly [place] MD DIAGNOSTIC IMAGING ORDERABLES F inal Result from Last 3 Months or Most Recently Relevant to Health Maintenance Insurance MEDICARE PART A AND B [facility] [id number] MEDICARE PART A AND B [facility] [id number] Care Teams Company Dancer Relationship Specialty Start Date End Date Mack Jay MD [address] [facility] [address] [place] [address] PCP - General Family Practice 01/19/25
--- OUTSIDE RECORDS SUMMARY | 2025-08-19 15:20 | XMS_ITS | Clinical Summary ---
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
--- OUTSIDE RECORDS SUMMARY | 2025-08-19 15:20 | XMS_ITS | Encounter Summary ---
Author Organization [facility] Address [address] [place] [address] Care Team Providers Care Qc Manager Name Role Phone Mack Jay MD Primary Care Provider [phone] Encounter Details Date Type Department Care Team (Late Contact Info) Description 11/11/2018 Chart Note [facility] Radiation Therapy [address] [place] [address] [place] [address] [place] [address] Social History Tobacco Use Types [...] Description 01/27/2026 11:00 AM CDT Office Visit [facility] Oncology and Hematology - [place] [address] [facility] [address] [place] [address] Charly [place] MD [address] [facility] [address] [place] [address] documented as of this encounter Visit Diagnoses Not on filedocumented in this encounter Care Teams Qc Manager Relationship Specialty Start Date End Date Mack Jay MD [address] [place] [address] [place] [address] PCP - General Family Practice 01/19/25 documented as of this encounter
--- OUTSIDE RECORDS SUMMARY | 2025-08-19 15:20 | XMS_ITS | Clinical Summary ---
Author Organization [facility] Address [address] [place] [address] Care Team Providers Care Supply Manager Name Role Phone Willa Ruff MD Primary Care Provider + Source Comments [facility],non-owned Affiliates and Associated Physician Practices is amultiple site organization consisting of ambulatory clinics and hospital sitesin [place], [place], [place] and [place]. This disclosure is being madepursuant to the Care Everywhere program and may not contain all information available regarding this patient. Last updated 18.[facility] Allergies No known active allergies Medications * [...] care, and heating? Not very hard 04/15/2023 [facility] [place] of Occupat ional Health - Occupational Stress [...] place to sleep or slept in a fpc (including now)? No 04/15/2023 Comments Unknown Sex [...] TESTING 1945 MEDICARE AWV 12 MONTHS 1945 COVID-19 VACCINE (#1) 1950 DTAP/TDAP/TD VACCINES (1 - Tdap) 1964 PNEUMOCOCCAL VACCINE 50+ (1 of 1 - PCV) 1995 ZOSTER VACCINE (1 of 2) 1995 Respiratory Syncytial Virus (RSV) Vaccine Pt: or over 60 yrs (1 - 1-dose 75+ series) 2020 DEPRESSION SCREENING 10/14/2024 INFLUENZA VACCINE (#1) 2025 [...] age to complete this topic Insurance MEDICARE [facility] MEDICARE [facility] Advance Directives * Full Code (Latest Code Status on File) Date Activated Date Inactivated Comments 04/11/2023 8:26 PM 04/21/2023 7:34 PM Care Teams Supply Manager Relationship Specialty Start Date End Date Willa Ruff MD [address] [place] [address] PCP - General Family Medicine 04/11/23
== END 2025-08-18 17:41 | disposition home or self-care (01) ==
PROVIDERS: Emergency Provider Nurse Practitioner; PCP Family Medicine
DX: S51.812A Laceration without foreign body of left forearm, initial encounter (principal); W22.8XXA Striking against or struck by other objects, initial encounter; Z23 Encounter for immunization; I73.9 Peripheral vascular disease, unspecified; G61.0 Guillain-Barre syndrome; E66.9 Obesity, unspecified; Z68.30 Body mass index [BMI] 30.0-30.9, adult; M17.11 Unilateral primary osteoarthritis, right knee; Z85.3 Personal history of malignant neoplasm of breast; Z90.12 Acquired absence of left breast and nipple; Z92.21 Personal history of antineoplastic chemotherapy; Z86.16 Personal history of COVID-19
CPT/HCPCS: 90471; 90715; 99212; G0463

== ENCOUNTER 2025-09-21 14:50 | Outpatient (CLI) | payer MEDICARE, SELFPAY ==
[2025-09-21 15:46] LABS: Creatine Kinase 66 U/L (30-135)
--- OUTSIDE RECORDS SUMMARY | 2025-09-21 17:16 | XMS_ITS | Clinical Summary ---
Author Organization [facility] Address [address] [place] [address] Care Team Providers Care Setter Juice Packaging Machines Name Role Phone Mack Jay MD Primary Care Provider [phone] Allergies No known active allergies Medications multivitamin [...] Encounters Date Type Department Care Team Description 08/31/2025 External Device Data STL ABSTRACTION Provider, Abstract 07/28/2025 8:45 AM CDT Office Visit [facility] Oncology and Hematology [facility] [address] [place] [address] Charly [place] MD Malignant neoplasm of upper-outer quadrant of left breast in female, estrogen receptor positive (CMS/HCC) (Primary Dx) 07/27/2025 External Device Data STL ABSTRACTION Provider, Abstract 07/20/2025 External Device Data STL ABSTRACTION Provider, Abstract 06/29/2025 External Device Data STL ABSTRACTION Provider, Abstract 06/24/2025 Orders Only [facility] Oncology and [facility] [address] [place] [address] Charly [place]var[place] MD from Last 3 Months [...] Description 01/27/2026 11:00 AM CDT Office Visit [facility] Oncology and Hematology - [place] [address] [facility] [address] [place] [address] Charly [place]var[place] MD [address] [facility] [address] [place] [address] Health Maintenance Due Date Last [...] Maintenance Insurance MEDICARE PART A AND B [facility] [id number] MEDICARE PART A AND B [facility] [id number] Care Teams Setter Juice Packaging Machines Relationship Specialty Start Date End Date Mack Jay MD [address] [facility] [address] [place] [address] PCP - General Family Practice 01/19/25
--- OUTSIDE RECORDS SUMMARY | 2025-09-21 17:16 | XMS_ITS | Clinical Summary ---
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
--- OUTSIDE RECORDS SUMMARY | 2025-09-21 17:16 | XMS_ITS | Encounter Summary ---
Author Organization [facility] Address [address] [place] [address] Care Team Providers Care Breadman Name Role Phone Mack Jay MD Primary Care Provider [phone] Encounter Details Date Type Department Care Team (Late Contact Info) Description 11/11/2018 Chart Note [facility] Radiation Therapy [address] [place] [address] [place] [address] [place] [address] Social History Tobacco Use Types [...] Description 01/27/2026 11:00 AM CDT Office Visit [facility] Oncology and Hematology - [place] [address] [place] [address] [facility] [address] [place] [address] Charly [place] MD [address] [facility] [address] [place] [address] [place] [address] documented as of this encounter Visit Diagnoses Not on filedocumented in this encounter Care Teams Breadman Relationship Specialty Start Date End Date Mack Jay MD [address] [facility] [address] [place] [address] PCP - General Family Practice 01/19/25 documented as of this encounter
--- OUTSIDE RECORDS SUMMARY | 2025-09-21 17:16 | XMS_ITS | Clinical Summary ---
Author Organization [facility] Address [address] [place] [address] Care Team Providers Care Metal Sorter Name Role Phone Unavailable Primary Care Provider Unavailabl e Allergies No known active allergies Medications acetaminophen (TYLENOL) 325 MG tablet Take 650 mg by mouth every 6 (six) hours as needed. 04/21/2023 Active anastrozole (ARIMIDEX) 1 mg tablet Take 1 mg by mouth. 08/31/2022 Active cholecalciferol , vitamin D3, 10 mcg (400 unit) tab Take 400 Units by mouth. 04/22/2023 Active cyanocobalamin 100 MCG tablet Take 100 mcg by mouth. Active denosumab, Prolia, (PROLIA) 60 mg/mL syrg syringe 11/14/2019 Active FLUoxetine (PROzac) 20 MG capsule Take 20 mg by mouth. 07/25/2022 Active hydrOXYzine (ATARAX) 25 MG tablet TAKE 1 TABLET BY MOUTH TWICE DAILY NEEDED FOR ITCHING 12/06/2020 Active melatonin 5 mg tab Take 5 mg by mouth. 04/21/2023 Active multivitamin (THERAGRAN) tab Take 1 tablet by mouth. Active oxyCODONE (ROXICODONE) 10 MG tab Take 10 mg by mouth every 6 (six) hours as needed. 04/21/2023 Active polyethylene glycol (GLYCOLAX) 17 gram/dose powder Take 17 g by mouth. 04/21/2023 Active pregabalin (LYRICA) 150 MG capsule Take 150 mg by mouth. 04/21/2023 Active senna (SENOKOT) 8.6 mg tablet Take 8.6 mg by mouth. 04/22/2023 Active Active Problems Problem Noted Date Diagnosed Date Discitis 05/03/2023 Osteomyelitis 05/03/2023 Sepsis 05/03/2023 Social History Tobacco Use Types Packs/Day Years Used Date Smoking Tobacco: Never Assessed Comments Unknown Sex and Gender Information Value Date Recorded Sex Assigned at Not on file Legal Sex Female 5:36 PM EDT Gender Identity Not on file Sexual Orientation Not on file Last Filed Vital Signs Vital Sign Reading Time Taken Comments Blood Pressure - - Pulse - - Temperature - - Respiratory Rate - - Oxygen Saturation - - Inhaled Oxygen Concentration - - Weight 61.2 kg (135 lb) 05/03/2023 10:32 AM PDT Height 152.4 cm (5') 05/03/2023 10:32 AM PDT Body Mass Index 26.37 05/03/2023 10:32 AM PDT Plan of Treatment Not on file Medical Devices Not on file Insurance MEDICARE [facility]
--- OUTSIDE RECORDS SUMMARY | 2025-09-21 17:17 | XMS_ITS | Clinical Summary ---
Author Organization [facility] Address [address] [place] [address] Care Team Providers Care Planning Coordinator Name Role Phone Willa Ruff MD Primary Care Provider + Source Comments [facility],non-owned Affiliates and Associated Physician Practices is amultiple site organization consisting of ambulatory clinics and hospital sitesin [place], [place], [place] and [place]. This disclosure is being madepursuant to the Care Everywhere program and may not contain all information available regarding this patient. Last updated 18.[facility] Allergies No known active allergies Medications * [...] care, and heating? Not very hard 04/15/2023 [facility] - Occupational Stress [...] place to sleep or slept in a senior care (including now)? No 04/15/2023 Comments Unknown Sex [...] age to complete this topic Insurance MEDICARE [facility] MEDICARE [facility] Advance Directives * Full Code (Latest Code Status on File) Date Activated Date Inactivated Comments 04/11/2023 8:26 PM 04/21/2023 7:34 PM Care Teams Planning Coordinator Relationship Specialty Start Date End Date Willa Ruff MD [address] [place] [address] PCP - General Family Medicine 04/11/23
--- OUTSIDE RECORDS SUMMARY | 2025-09-21 17:17 | XMS_ITS | Encounter Summary ---
Author Organization [facility] Address [address] [place] [address] Care Team Providers Care Management And Budget Analyst Name Role Phone Mack Jay MD Primary Care Provider [phone] Reason for Visit * Reason Comments Medication Refill Encounter Details Date Type Department Care Team (Late Contact Info) Description 03/10/2019 Refill [facility] Oncology and Hematology [address] [place] [address] Charly Alvarado MD [address] [place] [address] Social History Tobacco Use Types [...] Description 01/27/2026 11:00 AM CDT Office Visit [facility] Oncology [facility] Hematology [facility] [address] [place] [address] Charly Alvarado MD [address] [place] [address] documented as of this encounter Visit Diagnoses Not on filedocumented in this encounter Care Teams Management And Budget Analyst Relationship Specialty Start Date End Date Mack Jay MD [address] [place] [address] PCP - General Family Practice 01/19/25 documented as of this encounter
[2025-09-21 17:31] LABS: Hemoglobin A1C 5.7 % (<5.7)
[2025-09-21 18:47] LABS: Vitamin B12 > 1000.0 pg/mL (239-931)
[2025-09-23 09:08] LABS: Immunoglobulin A, Qn 147 mg/dL (64-422); Immunoglobulin G, Qn 1094 mg/dL (586-1602); Immunoglobulin M, Qn 25 mg/dL (26-217)
[2025-09-27 15:09] LABS: Vit. B1, Whole Blood 116.1 nmol/L (66.5-200.0)
== END 2025-09-21 14:51 | disposition home or self-care (01) ==
PROVIDERS: PCP Family Medicine; Visit Provider Psychiatry & Neurology Neurology
DX: Z13.1 Encounter for screening for diabetes mellitus (principal); G61.89 Other inflammatory polyneuropathies
CPT/HCPCS: 36415; 82550; 82607; 82784; 83036; 83090; 83921; 84207; 84425; 86334